=== PATIENT | female | born 1940 | race Caucasian/White ===

== ENCOUNTER → 2017-10-16 12:16 | Outpatient (CLI) | payer OTHER, SELFPAY ==
[2017-10-16 13:09] LABS: Alanine Aminotransferase 70 IU/L (9-52); Albumin 4.1 g/dL (3.5-5.0); Albumin Globulin Ratio 1.6 (1.0-2.8); Alkaline Phosphatase 111 U/L (38-126); Aspartate Aminotransferase 59 IU/L (14-36); BUN Creatinine Ratio 23.3 (6-22); Bilirubin Total 0.6 mg/dL (0.2-1.3); Blood Urea Nitrogen 21 mg/dL (7-17); Calcium 9.4 mg/dL (8.4-10.2); Carbon Dioxide 30 mmol/L (22-32); Chloride 103 mmol/L (98-107); Cholesterol 179 mg/dL (140-199); Estimated Glomerular Filt Rate > 60.0 mL/min (>60); Globulin 2.6 g/dL (1.7-4.1); Glucose 98 mg/dL (80-110); HDL Cholesterol 82 mg/dL (40-60); HEMOLYSIS < 15 (0-50); LDL Cholesterol Calculated 80 mg/dL (<100); Potassium 4.8 mmol/L (3.4-5.1); Sodium 142 mmol/L (137-145); Total Protein 6.7 g/dL (6.3-8.2); Triglycerides 87 mg/dL (35-150)
[2017-10-16 13:48] LABS: INR 2.9 (0.9-1.3)
== END ==
PROVIDERS: Family Provider Physician Assistant; PCP Physician Assistant; Visit Provider Physician Assistant
DX: I48.91 Unspecified atrial fibrillation (principal); I10 Essential (primary) hypertension; E78.5 Hyperlipidemia, unspecified
CPT/HCPCS: 36415; 80053; 80061; 85610

== ENCOUNTER → 2017-10-31 10:56 | Outpatient (CLI) | payer OTHER, SELFPAY ==
[2017-10-31 12:34] LABS: Alanine Aminotransferase 56 IU/L (9-52); Albumin 4.1 g/dL (3.5-5.0); Albumin Globulin Ratio 1.3 (1.0-2.8); Alkaline Phosphatase 88 U/L (38-126); Aspartate Aminotransferase 56 IU/L (14-36); Bilirubin Total 0.6 mg/dL (0.2-1.3); Blood Urea Nitrogen 24 mg/dL (7-17); Calcium 9.5 mg/dL (8.4-10.2); Carbon Dioxide 28 mmol/L (22-32); Chloride 101 mmol/L (98-107); Estimated Glomerular Filt Rate 53.9 mL/min (>60); Globulin 3.1 g/dL (1.7-4.1); Glucose 91 mg/dL (80-110); HEMOLYSIS 15 (0-50); Potassium 4.3 mmol/L (3.4-5.1); Sodium 141 mmol/L (137-145); Total Protein 7.2 g/dL (6.3-8.2)
== END ==
PROVIDERS: Family Provider Physician Assistant; PCP Physician Assistant; Visit Provider Physician Assistant
DX: I10 Essential (primary) hypertension (principal)
CPT/HCPCS: 36415; 80053

== ENCOUNTER → 2017-11-12 10:25 | Outpatient (CLI) | payer OTHER, SELFPAY ==
[2017-11-12 11:12] LABS: INR 3.7 (0.9-1.3); Prothrombin Time 39.7 SECONDS (10.1-12.7)
== END ==
PROVIDERS: PCP Physician Assistant; Visit Provider Physician Assistant
DX: I48.91 Unspecified atrial fibrillation (principal)
CPT/HCPCS: 36415; 85610

== ENCOUNTER → 2017-11-22 12:14 | Outpatient (CLI) | payer OTHER, SELFPAY ==
[2017-11-22 14:07] LABS: Prothrombin Time 65.9 SECONDS (10.1-12.7)
[2017-11-22 14:10] LABS: INR 6.2 (0.9-1.3)
== END ==
PROVIDERS: Family Provider Physician Assistant; PCP Physician Assistant; Visit Provider Physician Assistant
DX: I48.91 Unspecified atrial fibrillation (principal)
CPT/HCPCS: 85610

== ENCOUNTER → 2017-12-10 15:10 | Outpatient (CLI) | payer OTHER, SELFPAY ==
[2017-12-10 16:31] LABS: INR 3.8 (0.9-1.3); Prothrombin Time 42.4 SECONDS (10.1-12.7)
== END ==
PROVIDERS: Family Provider Physician Assistant; PCP Physician Assistant; Visit Provider Physician Assistant
DX: I48.91 Unspecified atrial fibrillation (principal)
CPT/HCPCS: 36415; 85610

== ENCOUNTER → 2018-01-03 11:11 | Outpatient (CLI) | payer OTHER, SELFPAY ==
[2018-01-03 11:41] LABS: INR 3.6 (0.9-1.3); Prothrombin Time 40.1 SECONDS (10.1-12.7)
== END ==
PROVIDERS: Family Provider Physician Assistant; PCP Physician Assistant; Visit Provider Physician Assistant
DX: I48.91 Unspecified atrial fibrillation (principal)
CPT/HCPCS: 36415; 85610

== ENCOUNTER → 2018-01-14 10:08 | Outpatient (CLI) | payer OTHER, SELFPAY ==
[2018-01-14 10:50] LABS: INR 3.2 (0.9-1.3); Prothrombin Time 35.8 SECONDS (10.1-12.7)
== END ==
PROVIDERS: Family Provider Physician Assistant; PCP Physician Assistant; Visit Provider Physician Assistant
DX: I48.91 Unspecified atrial fibrillation (principal)
CPT/HCPCS: 36415; 85610

== ENCOUNTER → 2018-05-03 08:40 | Outpatient (CLI) | payer OTHER, SELFPAY ==
[2018-05-03 10:10] LABS: INR 1.8 (0.9-1.3); Prothrombin Time 21.1 SECONDS (10.1-12.7)
== END ==
PROVIDERS: PCP Physician Assistant; Visit Provider Physician Assistant
DX: I48.91 Unspecified atrial fibrillation (principal)
CPT/HCPCS: 36415; 85610

== ENCOUNTER → 2018-07-10 08:28 | Outpatient (CLI) | payer OTHER, SELFPAY ==
[2018-07-10 09:39] LABS: INR 2.8 (0.9-1.3); Prothrombin Time 33.7 SECONDS (10.1-12.7)
[2018-07-10 10:01] LABS: Creatinine Urine Random 99.5 mg/dL
[2018-07-10 10:03] LABS: Alanine Aminotransferase 32 IU/L (9-52); Albumin 4.3 g/dL (3.5-5.0); Albumin Globulin Ratio 1.5 (1.0-2.8); Alkaline Phosphatase 85 U/L (38-126); Aspartate Aminotransferase 34 IU/L (14-36); Bilirubin Total 0.5 mg/dL (0.2-1.3); Blood Urea Nitrogen 27 mg/dL (7-17); Calcium 9.8 mg/dL (8.4-10.2); Carbon Dioxide 29 mmol/L (22-32); Chloride 102 mmol/L (98-107); Cholesterol 189 mg/dL (140-199); Estimated Glomerular Filt Rate 53.9 mL/min (>60); Globulin 2.8 g/dL (1.7-4.1); Glucose 91 mg/dL (80-110); HDL Cholesterol 78 mg/dL (40-60); HEMOLYSIS < 15 (0-50); LDL Cholesterol Calculated 91 mg/dL (<100); Potassium 4.9 mmol/L (3.4-5.1); Sodium 139 mmol/L (137-145); Total Protein 7.1 g/dL (6.3-8.2); Triglycerides 99 mg/dL (35-150)
[2018-07-10 10:08] LABS: Microalbumin Urine Random < 0.6 mg/dL (0-1.6)
== END ==
PROVIDERS: PCP Physician Assistant; Visit Provider Physician Assistant
DX: E78.5 Hyperlipidemia, unspecified (principal); I10 Essential (primary) hypertension; M81.0 Age-related osteoporosis without current pathological fracture; Z51.81 Encounter for therapeutic drug level monitoring; I48.91 Unspecified atrial fibrillation
CPT/HCPCS: 36415; 80053; 80061; 82043; 82570; 85610

== ENCOUNTER → 2018-08-19 09:48 | Outpatient (CLI) | payer OTHER, SELFPAY ==
[2018-08-19 11:00] LABS: Prothrombin Time 56.6 SECONDS (10.1-12.7)
[2018-08-19 11:12] LABS: INR 4.7 (0.9-1.3)
== END ==
PROVIDERS: PCP Physician Assistant; Visit Provider Physician Assistant
DX: I48.91 Unspecified atrial fibrillation (principal)
CPT/HCPCS: 36415; 85610

== ENCOUNTER → 2018-08-26 10:43 | Outpatient (CLI) | payer OTHER, SELFPAY ==
[2018-08-26 11:58] LABS: INR 1.9 (0.9-1.3); Prothrombin Time 22.4 SECONDS (10.1-12.7)
== END ==
PROVIDERS: PCP Physician Assistant; Visit Provider Physician Assistant
DX: I48.91 Unspecified atrial fibrillation (principal)
CPT/HCPCS: 36415; 85610

== ENCOUNTER → 2018-09-13 12:57 | Outpatient (CLI) | payer OTHER, SELFPAY ==
[2018-09-13 13:18] LABS: INR 3.5 (0.9-1.3); Prothrombin Time 41.3 SECONDS (10.1-12.7)
== END ==
PROVIDERS: PCP Physician Assistant; Visit Provider Physician Assistant
DX: I48.91 Unspecified atrial fibrillation (principal)
CPT/HCPCS: 36415; 85610

== ENCOUNTER → 2018-10-02 09:24 | Outpatient (CLI) | payer OTHER, SELFPAY ==
--- NOTE | 2018-10-02 | DI.MG.S_ITS ---
BILATERAL DIGITAL SCREENING MAMMOGRAM 3D/2D WITH CAD: 10/02/2018 CLINICAL: Routine screening. Comparison is made to exams dated: 09/26/2017 mammogram, 09/13/2016 mammogram, and 09/13/2015 mammogram - [facility]. The tissue of both breasts is extremely dense, which lowers the sensitivity of mammography. Current study was also evaluated with a Computer Aided Detection (CAD) system. There are benign calcifications in the left breast. There also are benign biopsy clips in the left breast. No significant masses, calcifications, or other findings are seen in either breast. There has been no significant interval change. IMPRESSION: There is no mammographic evidence of malignancy. A 1 year screening mammogram is recommended. This exam was interpreted at Station ID: [id number]. NOTE: For mammograms, a report in lay terms will be sent to the patient. Approximately 15% of breast malignancies will not be visualized mammographically. In the management of a palpable breast mass, a negative mammogram must not discourage biopsy of a clinically suspicious lesion. Electronically Signed By: Becca hull/apple:10/02/2018 11:19:21 letter sent: Normal Exam ACR BI-RADS Category 2: Benign Finding(s) 3342F
== END ==
PROVIDERS: PCP Physician Assistant; Visit Provider Physician Assistant
DX: Z12.31 Encounter for screening mammogram for malignant neoplasm of breast (principal)
CPT/HCPCS: 77063; 77067

== ENCOUNTER → 2018-10-04 12:20 | Outpatient (CLI) | payer OTHER, SELFPAY ==
[2018-10-04 14:04] LABS: INR 2.8 (0.9-1.3)
== END ==
PROVIDERS: PCP Physician Assistant; Visit Provider Physician Assistant
DX: I48.91 Unspecified atrial fibrillation (principal)
CPT/HCPCS: 36415; 85610

== ENCOUNTER → 2018-11-28 11:38 | Outpatient (CLI) | payer OTHER, SELFPAY ==
[2018-11-28 13:24] LABS: INR 2.3 (0.9-1.3); Prothrombin Time 26.8 SECONDS (10.1-12.7)
== END ==
PROVIDERS: PCP Physician Assistant; Visit Provider Physician Assistant
DX: I48.91 Unspecified atrial fibrillation (principal)
CPT/HCPCS: 36415; 85610

== ENCOUNTER → 2019-01-07 11:00 | Outpatient (CLI) | payer OTHER, SELFPAY ==
[2019-01-07 11:54] LABS: INR 2.3 (0.9-1.3)
== END ==
PROVIDERS: PCP Physician Assistant; Visit Provider Physician Assistant
DX: I48.91 Unspecified atrial fibrillation (principal)
CPT/HCPCS: 36415; 85610

== ENCOUNTER → 2019-02-27 10:48 | Outpatient (CLI) | payer OTHER, SELFPAY ==
[2019-02-27 11:27] LABS: INR 2.4 (0.9-1.3); Prothrombin Time 28.8 SECONDS (10.1-12.7)
== END ==
PROVIDERS: PCP Physician Assistant; Visit Provider Physician Assistant
DX: I48.91 Unspecified atrial fibrillation (principal)
CPT/HCPCS: 36415; 85610

== ENCOUNTER → 2019-04-24 09:35 | Outpatient (CLI) | payer OTHER, SELFPAY ==
[2019-04-24 10:42] LABS: INR 1.3 (0.9-1.3)
[2019-04-24 11:02] LABS: Creatinine Urine Random 120.3 mg/dL
[2019-04-24 11:05] LABS: Alanine Aminotransferase 30 IU/L (<35); Albumin 4.2 g/dL (3.5-5.0); Albumin Globulin Ratio 1.8 (1.0-2.8); Alkaline Phosphatase 99 U/L (38-126); Aspartate Aminotransferase 41 IU/L (14-36); BUN Creatinine Ratio 21.7 (6-22); Bilirubin Total 0.7 mg/dL (0.2-1.3); Blood Urea Nitrogen 26 mg/dL (7-17); Calcium 9.8 mg/dL (8.4-10.2); Carbon Dioxide 29 mmol/L (22-32); Chloride 101 mmol/L (98-107); Cholesterol 191 mg/dL (140-199); Estimated Glomerular Filt Rate 43.6 mL/min (>60); Globulin 2.4 g/dL (1.7-4.1); Glucose 83 mg/dL (80-110); HDL Cholesterol 65 mg/dL (40-60); HEMOLYSIS < 15 (0-50); LDL Cholesterol Calculated 104 mg/dL (<100); Potassium 4.2 mmol/L (3.4-5.1); Sodium 140 mmol/L (137-145); Total Protein 6.6 g/dL (6.3-8.2); Triglycerides 110 mg/dL (35-150)
[2019-04-24 11:08] LABS: Microalbumi Creatinin Ratio Ur 4.9 ug/mg CR (<30); Microalbumin Urine Random < 0.6 mg/dL (0-1.6)
[2019-04-24 11:16] LABS: Vitamin D 25 Hydroxy (D3) 18.9 ng/mL (30.0-100.0)
== END ==
PROVIDERS: PCP Physician Assistant; Visit Provider Physician Assistant
DX: I48.91 Unspecified atrial fibrillation (principal); E78.5 Hyperlipidemia, unspecified; I10 Essential (primary) hypertension; M81.0 Age-related osteoporosis without current pathological fracture
CPT/HCPCS: 36415; 80053; 80061; 82043; 82306; 82570; 85610

== ENCOUNTER → 2019-05-08 11:36 | Outpatient (CLI) | payer OTHER, SELFPAY ==
[2019-05-08 12:34] LABS: INR 1.7 (0.9-1.3)
== END ==
PROVIDERS: PCP Physician Assistant; Visit Provider Physician Assistant
DX: I48.91 Unspecified atrial fibrillation (principal); Z51.81 Encounter for therapeutic drug level monitoring
CPT/HCPCS: 36415; 85610

== ENCOUNTER → 2019-06-11 12:50 | Outpatient (CLI) | payer OTHER, SELFPAY ==
[2019-06-11 13:58] LABS: INR 3.4 (0.9-1.3); Prothrombin Time 40.6 SECONDS (10.1-12.7)
[2019-06-11 14:07] LABS: Blood Urea Nitrogen 18 mg/dL (7-17); Calcium 9.6 mg/dL (8.4-10.2); Carbon Dioxide 27 mmol/L (22-32); Chloride 101 mmol/L (98-107); Estimated Glomerular Filt Rate 53.8 mL/min (>60); Glucose 83 mg/dL (80-110); HEMOLYSIS < 15 (0-50); Sodium 137 mmol/L (137-145)
== END ==
PROVIDERS: PCP Physician Assistant; Visit Provider Physician Assistant
DX: I10 Essential (primary) hypertension (principal); N28.9 Disorder of kidney and ureter, unspecified; I48.91 Unspecified atrial fibrillation; Z79.01 Long term (current) use of anticoagulants
CPT/HCPCS: 36415; 80048; 85610

== ENCOUNTER → 2019-07-11 12:53 | Outpatient (CLI) | payer OTHER, SELFPAY ==
--- NOTE | 2019-07-11 13:06 | DIET.PN ---
Dietary Progress Note Assessment: 78y F following keto diet interested with help losing weight while protecting her kidneys and without raising her cholesterol. HT: 5'4 WT: 190.5# Wt Goal: 180# BMI: 33.7 Usual Day: wakes 8am breakfast 10am: 1 c coffee, muffin:hamburger, scrambled egg, sometimes condon (130kcal) or low calorie sausage, water house chores, read, watch tv 2pm lunch: egg muffin, 1/2 avocado, low-bradley sausage starts fixing dinner 4pm, 5pm cocktail: usually just one, hard alcohol 3oz c water or diet pepsi 6pm: pork tenderloin, sauteed mushrooms, spinach salad 3d/w has second cocktail evening snack: cheese, mushroom, egg muffin reads in bed 10-12, then falls asleep. no intentional physical activity, has back pain Out to dinner: shrimp scampi c/o pasta, burger c/o bun, fish taco c/o tortilla Labs: eGFR 53 L, TC 205 H Nutrition Diagnosis: overweight r/t undesirable food choices aeb pt follows fad diets, has history of yoyo dieting. Interventions: 1. Discussed ketogenic diet, pros and cons, consequences of going on and off keto, effects on kidneys. 2. Discussed role of regular physical activity on weight loss and maintenance. 3. Discussed evening snacking, role of front loading diet earlier in the day. Goals: 1. Jil will do a 10 minute lap with cart at [employer] and [employer] before shopping to increase step count. 2. Jil will get up and move after every show in the evening ensuring you hit at least 1k steps per day increasing to 2k whenever possible. 3. Stop eating at 8pm and wait to eat until 9-10am. 4. After dinner snacks stick to berries, popcorn or an branch bar. 5. Increase breakfast and and lunch volume with low calorie, and low carb vegetables. Monitoring/Evaluations: f/u in 2w
== END ==
PROVIDERS: PCP Nurse Practitioner Family; Referring Provider Physician Assistant; Visit Provider Physician Assistant
DX: E66.9 Obesity, unspecified (principal); Z68.33 Body mass index [BMI] 33.0-33.9, adult
CPT/HCPCS: 97802

== ENCOUNTER → 2019-07-11 12:57 | Outpatient (CLI) | payer OTHER, SELFPAY ==
[2019-07-11 15:09] LABS: INR 2.7 (0.9-1.3); Prothrombin Time 30.6 SECONDS (10.1-12.7)
== END ==
PROVIDERS: PCP Nurse Practitioner Family; Referring Provider Physician Assistant; Visit Provider Physician Assistant
DX: I48.91 Unspecified atrial fibrillation (principal); Z79.01 Long term (current) use of anticoagulants
CPT/HCPCS: 36415; 85610

== ENCOUNTER → 2019-07-25 13:58 | Outpatient (CLI) | payer OTHER, SELFPAY ==
--- NOTE | 2019-07-25 14:06 | DIET.PN ---
Dietary Progress Note Assessment: 78y F with hyperlipidemia and obesity attending 2w f/u to problem solve barriers and assess goals. Ht: 64 WT: 189.5 (down 1# in 3w) Wt Goal: 180# BMI: 32.4 Pt experiencing some constipation and her zuleima is reporting average fiber intake of 11g/d which is about 50% of her needs. Because of her HLD, we are adding 2T karly seeds to her daily routine keeping her keto ratios while supplying a heart healthy fat and soluble fiber to support HLD and healthy bowel movements. Pt has cleaned up her breakfast from sausage to making eggs, mushroom, spinach c /8 c cheese and some olive oil on top fritatta. Pt has started walking more aisles in the grocery store and takes short walks more frequently than she had been. She is worried about her knees so options include purchasing treking poles, or going less distance at once but more frequently. Pt had a setback Sunday and ate three pieces of apple pie. She is not usually a sweets eater, but bought the pie for her . Pt has moderate success (2-3d/w) with fasting from 8pm to 9am, will work harder on making this more frequent (goal 5-7d/w). Nutrition Diagnosis:Nutrition Diagnosis: Ongoing: overweight r/t undesirable food choices aeb pt follows fad diets, has history of yoyo dieting. Interventions: 1. Add 2T karly seeds per day to support fiber needs. 2. Continue adding physical activity, trying to get minimum of 2k steps per day. 3. Continue intermittent fasting 13h/d overnight. Monitoring/Evaluations: pt will continue to see RD [id number] as insurance allows.
== END ==
PROVIDERS: PCP Nurse Practitioner Family; Referring Provider Nurse Practitioner Family; Visit Provider Nurse Practitioner Family
DX: E78.5 Hyperlipidemia, unspecified (principal); E66.9 Obesity, unspecified; Z68.32 Body mass index [BMI] 32.0-32.9, adult; Z71.3 Dietary counseling and surveillance
CPT/HCPCS: 97802

== ENCOUNTER 2019-09-13 07:57 | Emergency (ER) | payer OTHER, SELFPAY ==
[2019-09-13 08:09] VITALS: BP 200/97; PULSE 72; RESP 16; TEMP 36.4; O2SAT 96
--- NOTE | 2019-09-13 08:14 | DI.RAD.S_ITS ---
PROCEDURE: XR FOOT LT MIN 3V INDICATIONS: mildly tender ecchymotic left foot TECHNIQUE: 3 views of the foot were acquired. COMPARISON: None. FINDINGS: Bones: No fractures or dislocations. No suspicious bony lesions. Incidental note is made of a bipartite medial sesamoid bone. Age-appropriate bony degenerative changes are seen. A plantar calcaneal spur is seen. Soft tissues: No tibiotalar joint effusion. Achilles tendon appears normal. IMPRESSION: Age-appropriate degenerative changes are seen, without acute bony abnormality seen by plain film. If there is point tenderness (or other clinical suspicion for a fracture not seen on these images) then a dedicated CT could be considered for further evaluation, as clinically appropriate. Dictated by: Jose Lea M.D. on 09/13/2019 at 8:03 Approved by: Jose Lea M.D. on 09/13/2019 at 8:04
--- NOTE | 2019-09-13 08:17 | ED_ITS ---
HPI - Extremity Injury (Lower) General Chief Complaint: Extremity Injury, Lower Stated Complaint: left ankle/lower mortensen black/blue x5 days Time Seen by Provider: 09/13/19 08:07 History of Present Illness HPI Narrative: CC: Ecchymotic dorsal left foot on Coumadin HPI: The patient is a 78-year-old female who has a history of paroxysmal atrial fibrillation for which she is on Coumadin. On Sunday of this past week 4 days ago the patient developed arm ecchymosis over the dorsal left foot primarily over the proximal toes 2,3 and 4. She denies any knowledge or source of injury. She does not remember twisting or injuring her foot in any reason. Last night the patient developed a small area of ecchymosis over the distal right left leg at which time she came into the emergency department this morning to be further evaluated. She called her primary care physician is stated that she probably just tore and twisted and injured a small blood vessel causing the bruising. She denies any diabetes mellitus heart attack congestive heart failure. She does not smoke but she does have 1-2 martinis at Happy hour period she denies any fever chills or sweats as well as any nasal congestion stuffiness drainage cough shortness of breath chest pain palpitations dizziness or lightheadedness. She has not had any other rash abdominal pain nausea vomiting diarrhea or any Related Data Previous Rx's Medication Instructions Recorded flecainide 150 mg tablet 150 mg PO BID #20 tab 09/20/17 atenolol 25 mg tablet 25 mg PO BID #180 tab 04/07/19 atorvastatin 20 mg tablet 20 mg PO HS #90 tab 04/09/19 warfarin 3 mg tablet 3 mg PO 4XW #90 tab 04/29/19 warfarin 5 mg tablet 5 mg PO DAILY #90 tab 08/15/19 Allergies Allergy/AdvReac Type Severity Reaction Status Date / Time No Known Drug Allergies Allergy Verified 09/13/19 08:23 Review of Systems Review of Systems Narrative: Review of systems were all negative except for those mentioned in the history of present illness. Patient History Medical History Atrial fibrillation (Chronic 01/22/14) Essential hypertension (Chronic) GERD (gastroesophageal reflux disease) (Chronic Unknown) Hyperlipidemia (Chronic) Osteopenia after menopause (Chronic) Sciatica (Chronic Unknown) Squamous cell carcinoma (Resolved ~04/2017) Surgical History History of total right hip arthroplasty (Resolved 02/2009) Hx of breast biopsy (Resolved 08/2014) Family History Father No problems noted. Mother No problems noted. Social History Smoking Status: Former smoker (Quit in 1990) Tobacco: How many years used: 25 second hand exposure: No alcohol intake: current (wine once a day.) substance use type: does not use Smoking Status: Former smoker (Quit in 1990) Exam Narrative Exam Narrative: PHYSICAL EXAM: CONSTITUTIONAL: Awake, Alert, Oriented, Coherent, Cooperative in NAD. Does not appear toxic or ill. HEAD: AT/NC EENT: PERRL, FROM of eyes, no discharge, . NOSE:No epistaxis or nasal drainage MOUTH:Oral mucosa is moist and pink, posterior pharynx is without erythema or exudate. NECK: Supple, no obvious JVD, Trachea is midline without stridor,. SPINE: Palpationof the cervical, Thoracic, Lumbar or Sacral spine reveals no gross deformity or tenderness. No CVA tenderness. THORAX: No deformity, retractions, chest wall tenderness. LUNGS: Clear, symmetrical breath sounds without respiratory distress. HEART: Normal heart tones, regular rhythm and rate without murmur. She states that she is primarily regular since she has been on flecainide. ABDOMEN: Soft, non-tender, normal bowel sounds without guarding, rebound, rigidity or palpable mass. LYMPHATIC: no palpable spleen. EXTREMITIES: No edema, deformity, tenderness or cyanosis of either leg. The patient has increased ecchymosis over the dorsal metatarsal joints of the 2nd and 3rd toe with diffuse ecchymosis over the dorsum of her foot spreading l aterally almost to her heel. There is no bony deformity or tenderness to palpation. There is no swelling of her ankles arm or tenderness over the talofibular ligaments heart talar tibial ligament. The patient has a small area of ecchymosis over her lateral left distal leg but there is no calf tenderness no extensive ecchymosis or signs of a hematoma at this time. SKIN: No rash, bruising, petechiae or purpura. NEURO: Awake, alert, oriented, conversive, cranial nerves II-XII are symmetrical , moves all 4 extremities and is ambulatory. Initial Vital Signs Initial Vital Signs: Vital Signs Temperature 97.6 F 09/13/19 08:09 Pulse Rate 72 09/13/19 08:09 Respiratory Rate 16 09/13/19 08:09 Blood Pressure 200/97 H 09/13/19 08:09 Pulse Oximetry 96 09/13/19 08:09 Course Course Course Narrative: 899: Review of the patient's x-rays myself reveal no fractures of the phalanges of her left foot or of the metatarsal bones. And a lateral view there appears to be a sesamoid bone over the plantar surface of the 1st metatarsal of the great toe which appears to be questionably fractured. However re-examination of the patient's foot reveals that there is no plantar ecchymosis nor tenderness to palpation over the plantar surface of the metatarsophalangeal joints of the great toe and the rest of the toes. I believe the patient's injury to her foot is a twisting motion and that the ecchymosis is concentrating around her toes because the dependent position of her feet when sitting and standing. 0911: INR remains pending. Orders Ordered: ED Orders 09/13/19 08:14 XR foot LT min 3V Stat 09/13/19 08:51 Complete Blood Count AUTO DIFF Stat Partial Thromboplastin Time Stat Prothrombin Time INR Stat Vital Signs Vital signs: Vital Signs - 8 hr 09/13/19 08:09 09/13/19 09:27 Temperature 97.6 F Pulse Rate 72 60 Respiratory Rate 16 18 Blood Pressure 200/97 H Blood Pressure [Left Arm] 172/80 H Pulse Oximetry 96 99 MDM - Extremity Injury (Lower) Medical Records Attestation: I reviewed the patient's medical records. Lab Data Attestation: I reviewed the patient's lab results. Result diagrams: 09/13/19 08:51 Labs: Lab Results 09/13/19 09/13/19 Range/Units 08:51 08:51 WBC 4.0 L (4.5-11.0) X10^3/uL RBC 4.42 (4.0-5.2) X10^6/uL Hgb 14.3 (12.0-16.0) g/dL Hct 41.7 (36-46) % MCV 94.3 (80-100) fL MCH 32.3 (26-34) PG MCHC 34.2 (30-36) % RDW 15.2 H (11.6-14.8) % Plt Count 187 (150-400) X10^3/uL Neut % (Auto) 51.7 (50-75) % Lymph % (Auto) 31.3 (25-40) % [place] % (Auto) 13.4 (3-14) % Eos % (Auto) 2.9 (2-4) % Baso % (Auto) 0.7 (0-2) % Neut # (Auto) 2000 (8625-5005) /uL Lymph # (Auto) 1200 (9622-5839) /uL [place] # (Auto) 500 (0-900) /uL Eos # (Auto) 100 (0-450) /uL Baso # (Auto) 0 (0-100) /uL PT 41.8 H (10.1-12.7) SECONDS INR 3.7 H (0.9-1.3) APTT 47 H (26.4-36.2) SECONDS MDM Narrative Medical decision making narrative: The patient's INR ranges from 1.3 to 3.4. Today her INR is 41.8 seconds and her INR is 3.7. Her INR is not extremely high but mildly high at elevated. She will be advised to hold her next dose of Coumadin and then resume her Coumadin and follow-up with her primary care physician. She can apply ice to the areas of ecchymosis to help reduce the swelling and potential bleeding. She was advised that if she develops a headache, falls and strikes her head for develops any gross bleeding anywhere else such as hemoptysis, hematemesis hematochezia or hematuria she should return to the emergency department to be re-evaluated. Discharge Plan Departure Clinical Impression: Ecchymosis Injury of foot, left Qualifiers: Encounter type: initial encounter Qualified Code(s): S99.922A - Unspecified injury of left foot, initial encounter Prescriptions: No Action flecainide 150 mg tablet 150 mg PO BID Qty: 20 RF: 1 atenolol 25 mg tablet 25 mg PO BID Qty: 180 RF: 3 atorvastatin [Lipitor] 20 mg tablet 20 mg PO HS Qty: 90 RF: 3 warfarin 5 mg tablet 5 mg PO DAILY Qty: 90 RF: 2 warfarin 3 mg tablet 3 mg PO 4XW Qty: 90 RF: 1 Referrals: Tone Ponce ARNP [Primary Care Provider] -
--- NOTE | 2019-09-13 08:28 | PC.NURSE ---
no injury, bruising to top of left foot.
[2019-09-13 08:58] LABS: Add Manual Diff / Slide Review NO; Basophils Absolute Auto 0 /uL (0-100); Basophils Percent Auto 0.7 % (0-2); Eosinophils Absolute Auto 100 /uL (0-450); Eosinophils Percent Auto 2.9 % (2-4); Hematocrit 41.7 % (36-46); Hemoglobin 14.3 g/dL (12.0-16.0); Lymphocytes Absolute Auto 1200 /uL (1100-4500); Lymphocytes Percent Auto 31.3 % (25-40); Mean Corpuscular HGB Conc 34.2 % (30-36); Mean Corpuscular Hemoglobin 32.3 PG (26-34); Mean Corpuscular Volume 94.3 fL (80-100); Monocytes Absolute Auto 500 /uL (0-900); Monocytes Percent Auto 13.4 % (3-14); Neutrophils Absolute Auto 2000 /uL (1500-7000); Neutrophils Percent Auto 51.7 % (50-75); Platelet Count 187 X10^3/uL (150-400); Red Blood Cell Count 4.42 X10^6/uL (4.0-5.2); Red Cell Distribution Width 15.2 % (11.6-14.8)
[2019-09-13 09:17] LABS: INR 3.7 (0.9-1.3); Prothrombin Time 41.8 SECONDS (10.1-12.7)
[2019-09-13 09:20] LABS: PTT Partial Thromboplastin Tim 47 SECONDS (26.4-36.2)
[2019-09-13 09:27] VITALS: BP 172/80; PULSE 60; RESP 18; O2SAT 99
== END 2019-09-13 09:49 | disposition home or self-care (01) ==
PROVIDERS: Emergency Provider Emergency Medicine; PCP Nurse Practitioner Family
DX: R58 Hemorrhage, not elsewhere classified (principal); S99.922A Unspecified injury of left foot, initial encounter; I48.91 Unspecified atrial fibrillation; Z79.01 Long term (current) use of anticoagulants
CPT/HCPCS: 36415; 73630; 85025; 85610; 85730; 99284

== ENCOUNTER → 2019-09-16 10:34 | Outpatient (CLI) | payer OTHER, SELFPAY ==
[2019-09-16 11:28] LABS: INR 2.6 (0.9-1.3); Prothrombin Time 30.1 SECONDS (10.1-12.7)
== END ==
PROVIDERS: PCP Nurse Practitioner Family; Referring Provider Nurse Practitioner Family; Visit Provider Nurse Practitioner Family
DX: I48.91 Unspecified atrial fibrillation (principal)
CPT/HCPCS: 36415; 85610

== ENCOUNTER → 2019-10-10 10:57 | Outpatient (CLI) | payer OTHER, SELFPAY ==
[2019-10-10 12:31] LABS: INR 3.9 (0.9-1.3); Prothrombin Time 44.6 SECONDS (10.1-12.7)
[2019-10-10 13:19] LABS: Alanine Aminotransferase 18 IU/L (<35); Albumin 4.4 g/dL (3.5-5.0); Albumin Globulin Ratio 1.6 (1.0-2.8); Alkaline Phosphatase 107 U/L (38-126); Aspartate Aminotransferase 33 IU/L (14-36); BUN Creatinine Ratio 30.5 (6-22); Bilirubin Total 0.6 mg/dL (0.2-1.3); Blood Urea Nitrogen 32 mg/dL (7-17); Calcium 9.9 mg/dL (8.4-10.2); Carbon Dioxide 26 mmol/L (22-32); Chloride 102 mmol/L (98-107); Estimated Glomerular Filt Rate 50.8 mL/min (>60); Globulin 2.8 g/dL (1.7-4.1); Glucose 97 mg/dL (80-110); HEMOLYSIS < 15 (0-50); Potassium 4.5 mmol/L (3.4-5.1); Sodium 138 mmol/L (137-145); Total Protein 7.2 g/dL (6.3-8.2)
== END ==
PROVIDERS: Internal Medicine Cardiovascular Disease; PCP Nurse Practitioner Family; Referring Provider Nurse Practitioner Family; Visit Provider Nurse Practitioner Pediatrics
DX: Z51.81 Encounter for therapeutic drug level monitoring (principal); Z79.899 Other long term (current) drug therapy; I48.91 Unspecified atrial fibrillation; Z79.01 Long term (current) use of anticoagulants
CPT/HCPCS: 36415; 80053; 85610

== ENCOUNTER → 2019-10-22 11:30 | Outpatient (CLI) | payer OTHER, SELFPAY ==
--- NOTE | 2019-10-22 11:32 | DIET.PN ---
Dietary Progress Note Assessment: 79y F f/u for obesity, HLD, and high INR seen regularly by RD, services interrupted by Covid. Pt has gained 10# since July r/t going off keto, drinking 2 martinis per day, and not regularly exercising. WT: 197.5# Labs: INR 3.9 H Interventions: 1. To support wt loss, Pt will restart keto diet using her phone zuleima per her preference. 2. To help regulate INR and support wt loss, pt will cut etoh intake to 1 equivalent per day. 3. To support healthy cholesterol levels and support wt loss pt will walk 3d/w. Monitoring/Evaluations: RD f/u in 2 week to assess interventions and problem solve barriers. Consider IF or 500kcal restriction 2d/w as additional tools for meeting goals.
== END ==
PROVIDERS: PCP Nurse Practitioner Family; Referring Provider Physician Assistant; Visit Provider Physician Assistant
DX: E78.5 Hyperlipidemia, unspecified (principal)

== ENCOUNTER 2019-11-05 10:52 | Emergency (ER) | payer OTHER, SELFPAY ==
[2019-11-05 11:21] VITALS: BP 222/100; PULSE 61; RESP 16; TEMP 36.9; O2SAT 97; BMI 32.8
--- NOTE | 2019-11-05 11:28 | DI.RAD.S_ITS ---
PROCEDURE: XR CHEST 1V INDICATIONS: hypertension. TECHNIQUE: One view of the chest was acquired. COMPARISON: None. FINDINGS: Surgical changes and devices: Left breast clip. Lungs and pleura: Lungs are clear. No pleural effusions or pneumothorax. Mediastinum: Mediastinal contours appear normal. Heart size is normal. Bones and chest wall: No suspicious bony lesions. Overlying soft tissues appear unremarkable. IMPRESSION: No acute cardiopulmonary abnormality. Dictated by: Flaco Chavez M.D. on 11/05/2019 at 12:13 Approved by: Flaco Chavez M.D. on 11/05/2019 at 12:13
--- NOTE | 2019-11-05 11:44 | PC.NURSE ---
PT sent from [facility] for high BP. Initial was 222/100. Asymptomatic. History of Afib. EKG done and now BP 174/74
[2019-11-05 11:45] VITALS: BP 174/74; PULSE 61; RESP 14; O2SAT 98
[2019-11-05 11:50] LABS: Add Manual Diff / Slide Review NO; Basophils Absolute Auto 0 /uL (0-100); Basophils Percent Auto 0.6 % (0-2); Eosinophils Absolute Auto 100 /uL (0-450); Eosinophils Percent Auto 1.4 % (2-4); Hematocrit 45.4 % (36-46); Hemoglobin 15.6 g/dL (12.0-16.0); Lymphocytes Absolute Auto 1500 /uL (1100-4500); Mean Corpuscular HGB Conc 34.2 % (30-36); Mean Corpuscular Hemoglobin 32.6 PG (26-34); Mean Corpuscular Volume 95.2 fL (80-100); Monocytes Absolute Auto 500 /uL (0-900); Monocytes Percent Auto 11.3 % (3-14); Neutrophils Absolute Auto 2300 /uL (1500-7000); Neutrophils Percent Auto 52.7 % (50-75); Platelet Count 192 X10^3/uL (150-400); Red Blood Cell Count 4.78 X10^6/uL (4.0-5.2); Red Cell Distribution Width 14.6 % (11.6-14.8); White Blood Cell Count 4.4 X10^3/uL (4.5-11.0)
--- NOTE | 2019-11-05 11:50 | ED_ITS ---
HPI - General Adult <NEVAEH Patel-BC - Last Filed: 11/05/19 14:32> General Chief complaint: Hypertension Stated complaint: high bp send from a Time Seen by Provider: 11/05/19 11:21 Source: patient Mode of arrival: Ambulatory Limitations: no limitations History of Present Illness HPI narrative: Patient is a 79-year-old femaleWith history of atrial fibrillation and hypertension who presents with a chief complaint of high blood pressure. She takes flecainide, atenolol, Coumadin hydrochlorothiazide at home she states she has been compliant with her medications. Today the patient went to her dentist, who found her to be hypertensive, they sent her to a to be evaluated, she was found to be hypertensive and sent her to the emergency department. The patient is without complaints. She denies any chest pain, shortness of breath, lightheadedness dizziness or headache. She states she had her INR checked today and was 1.9. Her goal is 2-3. Overall the patient states she feels well and normal, denies any complaints or pain. Her blood pressure was noted to be 220s over 100 at the outpatient clinic. Related Data Previous Rx's Medication Instructions Recorded flecainide 150 mg tablet 150 mg PO BID #20 tab 09/20/17 atenolol 25 mg tablet 25 mg PO BID #180 tab 04/07/19 atorvastatin 20 mg tablet 20 mg PO HS #90 tab 04/09/19 warfarin 3 mg tablet 3 mg PO 4XW #90 tab 04/29/19 warfarin 5 mg tablet 5 mg PO DAILY #90 tab 08/15/19 Allergies Allergy/AdvReac Type Severity Reaction Status Date / Time No Known Drug Allergies Allergy Verified 09/13/19 08:23 Review of Systems <NEVAEH Patel-BC - Last Filed: 11/05/19 14:32> Review of Systems Narrative: GENERAL: Denies chills, fatigue, malaise, fever, sweats. HEENT: Denies sinus pain, ear pain, sore throat, difficulty swallowing, dizziness. RESPIRATORY: Denies dyspnea, cough, wheezing, hemoptysis, sputum. CARDIOVASCULAR: Denies chest pain, palpitations, orthopnea, edema, GASTROINTESTINAL: Denies nausea, vomiting, abdominal pain, diarrhea, constipation, melena. : Denies dysuria, frequency, incontinence, hematuria, urinary retention. MUSCULOSKELETAL: denies weakness, joint pain, or bony pain SKIN: Denies rash, skin lesions, or other NEUROLOGIC: Denies weakness, headache, numbness, change in speech, confusion, seizures, incoordination. PSYCHIATRIC: No concerning psychosocial issues. 12 point review of systems is negative except for those stated above Patient History <EDVIN Patel - Last Filed: 11/05/19 14:32> Medical History Atrial fibrillation (Chronic 01/22/14) Essential hypertension (Chronic) GERD (gastroesophageal reflux disease) (Chronic Unknown) Hyperlipidemia (Chronic) Osteopenia after menopause (Chronic) Sciatica (Chronic Unknown) Squamous cell carcinoma (Resolved ~04/2017) Surgical History History of total right hip arthroplasty (Resolved 02/2009) Hx of breast biopsy (Resolved 08/2014) Family History Father No problems noted. Mother No problems noted. Social History Smoking Status: Former smoker Tobacco: How many years used: 25 second hand exposure: No alcohol intake: current (wine once a day.) substance use type: does not use Smoking Status: Former smoker alcohol intake frequency: 0-2 drinks per day Substance Use Type: does not use Exam <EDVIN Patel - Last Filed: 11/05/19 14:32> Narrative Exam Narrative: GENERAL: This is a well-nourished, well-developed patient, in no acute distress HEAD: Atraumatic. Normocephalic. No temporal or scalp tenderness. EYES: Pupils equal round and reactive. Extraocular motions intact. No scleral icterus. No injection or drainage. ENT: Nose without bleeding, purulent drainage or septal hematoma. Airway patent. NECK: Trachea midline. No JVD or lymphadenopathy. Supple, nontender, no meningeal signs. CARDIOVASCULAR: Regular rate and irregular rhythm RESPIRATORY: Clear to auscultation. Breath sounds equal bilaterally. No wheezes, rales, or rhonchi. No cough. No increased respiratory effort. No accessory muscle use. Speaking full sentences. GASTROINTESTINAL: Abdomen soft, non-tender, nondistended. No hepato-sple nomegaly, or palpable masses. No guarding. EXTREMITIES: No clubbing, cyanosis, or edema. No joint tenderness, effusion, or edema noted. BACK: Nontender without deformity or crepitance. No flank tenderness. NEURO: AOx3. SKIN: No rash or erythema on visible skin Initial Vital Signs Initial Vital Signs: Vital Signs Temperature 98.5 F 11/05/19 11:21 Pulse Rate 61 11/05/19 11:21 Respiratory Rate 16 11/05/19 11:21 Blood Pressure 222/100 H 11/05/19 11:21 Pulse Oximetry 97 11/05/19 11:21 <Maximilian Fulton DO - Last Filed: 11/05/19 14:33> Initial Vital Signs Initial Vital Signs: Vital Signs Temperature 98.5 F 11/05/19 11:21 Pulse Rate 61 11/05/19 11:21 Respiratory Rate 16 11/05/19 11:21 Blood Pressure 222/100 H 11/05/19 11:21 Pulse Oximetry 97 11/05/19 11:21 Scores <EDVIN Patel - Last Filed: 11/05/19 14:32> GCS [place] coma scale eye opening: Spontaneous Darlyn coma scale verbal response: Orientated Darlyn coma scale motor response: Obey commands Darlyn coma scale total score: 15 Course <EDVIN Patel - Last Filed: 11/05/19 14:32> Orders Ordered: ED Orders 11/05/19 11:28 XR chest 1V Stat EKG-12 Lead Stat 11/05/19 11:35 Complete Blood Count AUTO DIFF Stat 11/05/19 13:28 Comprehensive Metabolic Panel Stat Troponin I Stat Vital Signs Vital signs: Vital Signs - 8 hr 11/05/19 11:21 11/05/19 11:45 11/05/19 12:30 Temperature 98.5 F Pulse Rate 61 61 54 L Respiratory Rate 16 14 14 Blood Pressure 222/100 H Blood Pressure [Left Arm] 174/74 H 153/58 H Pulse Oximetry 97 98 96 11/05/19 13:00 11/05/19 14:19 11/05/19 14:24 Temperature Pulse Rate 55 L 49 L 49 L Respiratory Rate 18 24 24 Blood Pressure 177/76 H Blood Pressure [Left Arm] 156/66 H 177/76 H Pulse Oximetry 95 96 <Maximilian Fulton DO - Last Filed: 11/05/19 14:33> Orders Ordered: ED Orders 11/05/19 11:28 XR chest 1V Stat EKG-12 Lead Stat 11/05/19 11:35 Complete Blood Count AUTO DIFF Stat 11/05/19 13:28 Comprehensive Metabolic Panel Stat Troponin I Stat Vital Signs Vital signs: Vital Signs - 8 hr 11/05/19 11:21 11/05/19 11:45 11/05/19 12:30 Temperature 98.5 F Pulse Rate 61 61 54 L Respiratory Rate 16 14 14 Blood Pressure 222/100 H Blood Pressure [Left Arm] 174/74 H 153/58 H Pulse Oximetry 97 98 96 11/05/19 13:00 11/05/19 14:19 11/05/19 14:24 Temperature Pulse Rate 55 L 49 L 49 L Respiratory Rate 18 24 24 Blood Pressure 177/76 H Blood Pressure [Left Arm] 156/66 H 177/76 H Pulse Oximetry 95 96 Medical Decision Making <NEVAEH Patel-BC - Last Filed: 11/05/19 14:32> Lab Data Result diagrams: 11/05/19 11:35 11/05/19 13:28 Labs: Lab Results 11/05/19 11/05/19 Range/Units 11:35 13:28 WBC 4.4 L (4.5-11.0) X10^3/uL RBC 4.78 (4.0-5.2) X10^6/uL Hgb 15.6 (12.0-16.0) g/dL Hct 45.4 (36-46) % MCV 95.2 (80-100) fL MCH 32.6 (26-34) PG MCHC 34.2 (30-36) % RDW 14.6 (11.6-14.8) % Plt Count 192 (150-400) X10^3/uL Neut % (Auto) 52.7 (50-75) % Lymph % (Auto) 34.0 (25-40) % [place] % (Auto) 11.3 (3-14) % Eos % (Auto) 1.4 L (2-4) % Baso % (Auto) 0.6 (0-2) % Neut # (Auto) 2300 (6008-2081) /uL Lymph # (Auto) 1500 (8847-7942) /uL [place] # (Auto) 500 (0-900) /uL Eos # (Auto) 100 (0-450) /uL Baso # (Auto) 0 (0-100) /uL Sodium 137 (137-145) mmol/L Potassium 4.2 (3.4-5.1) mmol/L Chloride 102 (98-107) mmol/L Carbon Dioxide 28 (22-32) mmol/L BUN 23 H (7-17) mg/dL Creatinine 0.97 (0.52-1.04) mg/dL Estimated GFR 55.5 L (>60) mL/min BUN/Creatinine Ratio 23.7 H (6-22) Glucose 88 (80-110) mg/dL Calcium 10.0 (8.4-10.2) mg/dL Total Bilirubin 0.6 (0.2-1.3) mg/dL AST 40 H (14-36) IU/L ALT 23 (<35) IU/L Alkaline Phosphatase 91 (38-126) U/L Troponin I < 0.012 (0.01-0.034) ng/mL Total Protein 7.2 (6.3-8.2) g/dL Albumin 4.4 (3.5-5.0) g/dL Globulin 2.8 (1.7-4.1) g/dL Albumin/Globulin Ratio 1.6 (1.0-2.8) Urine Dip Bedside Urine Glucose Negative Bedside Urine Bilirubin - Negative Bedside Urine Ketone - Negative Urine Specific [place] 1.010 Bedside Urine Occult Blood - Negative Bedside Urine pH 6.0 Bedside Urine Protein - Negative Bedside Urine Urobilinogen - Negative Bedside Urine Nitrite - Negative Bedside Urine Leukocytes - Negative Esterase Point of care testing: Urine Dip Bedside Urine Glucose Negative Bedside Urine Bilirubin - Negative Bedside Urine Ketone - Negative Urine Specific [place] 1.010 Bedside Urine Occult Blood - Negative Bedside Urine pH 6.0 Bedside Urine Protein - Negative Bedside Urine Urobilinogen - Negative Bedside Urine Nitrite - Negative Bedside Urine Leukocytes - Negative Esterase Imaging Data Chest x-ray: Radiologist's Impression: [address] [place] [id number] XRay Report Signed Patient: Jennie Reyes LMR#: [id number] : 1941Acct:[id number] Age/Sex: 79 / FDate of Service: 11/05/19 Loc: ED Accession Number: [id number] Procedure: XR chest 1V Ordering Provider: Maria C Dinero PROCEDURE: XR CHEST 1V INDICATIONS: hypertension. TECHNIQUE: One view of the chest was acquired. COMPARISON: None. FINDINGS: Surgical changes and devices: Left breast clip. Lungs and pleura: Lungs are clear. No pleural effusions or pneumothorax. Mediastinum: Mediastinal contours appear normal. Heart size is normal. Bones and chest wall: No suspicious bony lesions. Overlying soft tissues appear unremarkable. IMPRESSION: No acute cardiopulmonary abnormality. Dictated by: Flaco Chavez M.D. on 11/05/2019 at 12:13 Approved by: Flaco Chavez M.D. on 11/05/2019 at 12:13 ECG Data Interpretation: Atrial fibrillation. Ventricular rate 61. QRS 114 no ectopy noted. viewed by Dr Fulton MDM Narrative Medical decision making narrative: The patient is a 79-year-old female with history of hypertension who presents with a chief complaint of hypertension from her dentist office and [facility]. She stated her blood pressure was 220. Patient denies any chest pain shortness of breath, EKG and troponin are negative helping rule out any acute cardiac event. She is asymptomatic. She has no headache lightheadedness or dizziness. The patient has a current of 0.97, helping rule out a kidney injury. Her blood pressure normalized to 170 systolic in the emergency department, the patient remained asymptomatic. Thus we held off on any medication changes at this point time. Discussed at length follow up with primary care provider in the next few days as was coming back to the emergency department for any acute concerns. Patient has no questions or concerns upon discharge and states understanding return precautions as well as follow-up care. <Maximilian Fulton DO - Last Filed: 11/05/19 14:33> Lab Data Labs: Lab Results 11/05/19 11/05/19 Range/Units 11:35 13:28 WBC 4.4 L (4.5-11.0) X10^3/uL RBC 4.78 (4.0-5.2) X10^6/uL Hgb 15.6 (12.0-16.0) g/dL Hct 45.4 (36-46) % MCV 95.2 (80-100) fL MCH 32.6 (26-34) PG MCHC 34.2 (30-36) % RDW 14.6 (11.6-14.8) % Plt Count 192 (150-400) X10^3/uL Neut % (Auto) 52.7 (50-75) % Lymph % (Auto) 34.0 (25-40) % [place] % (Auto) 11.3 (3-14) % Eos % (Auto) 1.4 L (2-4) % Baso % (Auto) 0.6 (0-2) % Neut # (Auto) 2300 (0815-6057) /uL Lymph # (Auto) 1500 (7539-7488) /uL [place] # (Auto) 500 (0-900) /uL Eos # (Auto) 100 (0-450) /uL Baso # (Auto) 0 (0-100) /uL Sodium 137 (137-145) mmol/L Potassium 4.2 (3.4-5.1) mmol/L Chloride 102 (98-107) mmol/L Carbon Dioxide 28 (22-32) mmol/L BUN 23 H (7-17) mg/dL Creatinine 0.97 (0.52-1.04) mg/dL Estimated GFR 55.5 L (>60) mL/min BUN/Creatinine Ratio 23.7 H (6-22) Glucose 88 (80-110) mg/dL Calcium 10.0 (8.4-10.2) mg/dL Total Bilirubin 0.6 (0.2-1.3) mg/dL AST 40 H (14-36) IU/L ALT 23 (<35) IU/L Alkaline Phosphatase 91 (38-126) U/L Troponin I < 0.012 (0.01-0.034) ng/mL Total Protein 7.2 (6.3-8.2) g/dL Albumin 4.4 (3.5-5.0) g/dL Globulin 2.8 (1.7-4.1) g/dL Albumin/Globulin Ratio 1.6 (1.0-2.8) Urine Dip Bedside Urine Glucose Negative Bedside Urine Bilirubin - Negative Bedside Urine Ketone - Negative Urine Specific [place] 1.010 Bedside Urine Occult Blood - Negative Bedside Urine pH 6.0 Bedside Urine Protein - Negative Bedside Urine Urobilinogen - Negative Bedside Urine Nitrite - Negative Bedside Urine Leukocytes - Negative Esterase Point of care testing: Urine Dip Bedside Urine Glucose Negative Bedside Urine Bilirubin - Negative Bedside Urine Ketone - Negative Urine Specific [place] 1.010 Bedside Urine Occult Blood - Negative Bedside Urine pH 6.0 Bedside Urine Protein - Negative Bedside Urine Urobilinogen - Negative Bedside Urine Nitrite - Negative Bedside Urine Leukocytes - Negative Esterase Discharge Plan Departure Patient Disposition: Home Clinical Impression: Hypertension Qualifiers: Hypertension type: unspecified Qualified Code(s): I10 - Essential (primary) hypertension Discharge Date/Time: 11/05/19 14:26 Instructions: DI for High Blood Pressure Activity Restrictions/Additional Instructions: Thank you for trusting us with your care today. As discussed, your labs came back well and your blood pressure has normalized well. Please follow-up with primary care provider in the next few days Please come back to the emergency department for any acute concerns including chest pain, shortness of breath etcetera Prescriptions: No Action flecainide 150 mg tablet 150 mg PO BID Qty: 20 RF: 1 atenolol 25 mg tablet 25 mg PO BID Qty: 180 RF: 3 atorvastatin [Lipitor] 20 mg tablet 20 mg PO HS Qty: 90 RF: 3 warfarin 5 mg tablet 5 mg PO DAILY Qty: 90 RF: 2 warfarin 3 mg tablet 3 mg PO 4XW Qty: 90 RF: 1 Referrals: Tone Ponce ARNP [Primary Care Provider] - <Maximilian Fulton, - Last Filed: 11/05/19 14:33> Cosign ED Attending Cosreeceature Attestation: Dr Fulton Co-Sign Statement: I was available for consultation during this patient's emergency department visit. This chart is signed by myself for administrative purposes only. I did not have direct contact with this patient during this visit. They were seen independently by the APC.
[2019-11-05 12:30] VITALS: BP 153/58; PULSE 54; RESP 14; O2SAT 96
[2019-11-05 13:00] VITALS: BP 156/66; PULSE 55; RESP 18; O2SAT 95
--- NOTE | 2019-11-05 13:09 | PC.NURSE ---
Pt had appointment with in house branch associate teller, Carri. I called to see if she was able to see patient in the ER, per patient request. She was happy to come down to see her here.
[2019-11-05 13:42] LABS: Alanine Aminotransferase 23 IU/L (<35); Albumin 4.4 g/dL (3.5-5.0); Albumin Globulin Ratio 1.6 (1.0-2.8); Alkaline Phosphatase 91 U/L (38-126); Aspartate Aminotransferase 40 IU/L (14-36); BUN Creatinine Ratio 23.7 (6-22); Bilirubin Total 0.6 mg/dL (0.2-1.3); Blood Urea Nitrogen 23 mg/dL (7-17); Carbon Dioxide 28 mmol/L (22-32); Chloride 102 mmol/L (98-107); Estimated Glomerular Filt Rate 55.5 mL/min (>60); Globulin 2.8 g/dL (1.7-4.1); Glucose 88 mg/dL (80-110); HEMOLYSIS < 15 (0-50); Potassium 4.2 mmol/L (3.4-5.1); Sodium 137 mmol/L (137-145); Total Protein 7.2 g/dL (6.3-8.2)
[2019-11-05 13:53] LABS: Troponin I < 0.012 ng/mL (0.01-0.034)
[2019-11-05 14:19] VITALS: BP 177/76; PULSE 49; RESP 24
[2019-11-05 14:24] VITALS: BP 177/76; PULSE 49; RESP 24; O2SAT 96
== END 2019-11-05 14:26 | disposition home or self-care (01) ==
PROVIDERS: Emergency Provider Nurse Practitioner Family; PCP Nurse Practitioner Family
DX: I10 Essential (primary) hypertension (principal)
CPT/HCPCS: 36415; 71045; 80053; 81003; 84484; 85025; 93005; 99284

== ENCOUNTER → 2019-11-19 12:59 | Outpatient (CLI) | payer OTHER, SELFPAY ==
--- NOTE | 2019-11-19 13:21 | DIET.PN ---
Dietary Progress Note RD f/u for obesity and HTN. Pt has lost 3.5# in 2w, current weight 188# would like to lose 15#. Pt was found to have elevated BP 200/150 at dentist c no overt sx and sent to [facility] who sent her to ER. Pt has medication adjustment. Continued wt loss will help BP. Pt has not been exercising but is still following ketogenic diet. Pt having difficulty keeping protein levels down. Discussed reducing protein portions and increasing healthy fat portion (avocado, olive oil). Gave pt recipe for shaved zucchini salad c olive oil and lemon. Plan for 2w f/u to assess wt.
== END ==
PROVIDERS: PCP Nurse Practitioner Family; Referring Provider Nurse Practitioner Family; Visit Provider Nurse Practitioner Family
DX: E66.9 Obesity, unspecified (principal); I10 Essential (primary) hypertension; Z71.3 Dietary counseling and surveillance
CPT/HCPCS: 97802

== ENCOUNTER → 2019-12-03 12:23 | Outpatient (CLI) | payer OTHER, SELFPAY ==
--- NOTE | 2019-12-03 12:32 | DIET.PN ---
Dietary Progress Note F/u eric Ley regarding weight loss and BP Pt back up to 191#, feeling down that she has gained weight, is constipated, and misses eating fruits and vegetables. Pt started the ketogenic diet a while back to lose weight before meeting c RD, does not like to exercise, but feels it isn't working and won't be sustainable longterm. Pt has been getting ~11g fiber (50% of needs) and limiting herself to 18g CHO per day and around 1500kcals. Pt curious if she can add some carbs back to her program and still lose weight. Usual Day: 9am B: 2 eggs in 1T evoo L: protein c protein D: main of protein and a salad 8pm Sn: nuts Nutrition Diagnosis: poor nutrition quality of life r/t following ketogenic diet to lose weight aeb pt not losing weight, pt misses F/V, pt constipated. Interventions: Encouraged pt to increase carbs to up to 120g/d which is a generic carb controlled diet for woman her size. Pt not comfortable increasing this far but will increase to 30-60g CHO/d. Discussed food sources of fiber and carbs and how these foods can assist her weight loss and lower BP. Pt will focus on increasing carbs by increasing fruits and veggie intake rather than grain/processed foods. Pt excited to have melon, pears, sweet potato, and some beans. Reiterated to pt that she should still monitor calories and not take this as permission to open the floodgates to the foods she was previously restricting, but a way to get very healthy foods back into her diet which will support health. Pt will limit pasta, rice, and pizza each to once every other week, never in a row. This way she can enjoy the foods, but will stay on track with her weight loss plan. Pt excited to go to store today to purchase these healthy, whole foods. Monitoring/Evaluations: f/u 1mo to assess weight, BP, and problem solve barriers.
== END ==
PROVIDERS: PCP Nurse Practitioner Family; Referring Provider Nurse Practitioner Family; Visit Provider Nurse Practitioner Family
DX: K59.00 Constipation, unspecified (principal); Z71.3 Dietary counseling and surveillance
CPT/HCPCS: 97802

== ENCOUNTER → 2019-12-12 11:46 | Outpatient (CLI) | payer OTHER, SELFPAY ==
[2019-12-12 12:54] LABS: Hematocrit 42.3 % (36-46); Hemoglobin 13.9 g/dL (12.0-16.0); Mean Corpuscular HGB Conc 32.8 % (30-36); Mean Corpuscular Hemoglobin 31.9 PG (26-34); Mean Corpuscular Volume 97.2 fL (80-100); Platelet Count 182 X10^3/uL (150-400); Red Blood Cell Count 4.36 X10^6/uL (4.0-5.2); Red Cell Distribution Width 14.3 % (11.6-14.8); White Blood Cell Count 3.8 X10^3/uL (4.5-11.0)
[2019-12-12 13:01] LABS: INR 1.5 (0.9-1.3); Prothrombin Time 16.9 SECONDS (10.1-12.7)
[2019-12-12 13:07] LABS: HEMOLYSIS < 15 (0-50); Iron 89 ug/dL (37-170)
[2019-12-12 13:10] LABS: BUN Creatinine Ratio 15.3 (6-22); Blood Urea Nitrogen 15 mg/dL (7-17); Calcium 9.9 mg/dL (8.4-10.2); Carbon Dioxide 28 mmol/L (22-32); Chloride 105 mmol/L (98-107); Estimated Glomerular Filt Rate 54.9 mL/min (>60); Glucose 98 mg/dL (80-110); HEMOLYSIS < 15 (0-50); Potassium 4.8 mmol/L (3.4-5.1); Sodium 139 mmol/L (137-145)
[2019-12-12 13:18] LABS: Percent Iron Saturation 31 % (15-50); Total Iron Binding Capacity 287 ug/dL (265-497); Transferrin 220 mg/dL (206-381)
[2019-12-12 13:39] LABS: TSH w/ Reflex to FT4 1.23 uIU/mL (0.47-4.68)
[2019-12-12 13:43] LABS: Ferritin 82 ng/mL (11-264)
== END ==
PROVIDERS: PCP Nurse Practitioner Family; Referring Provider Nurse Practitioner Family; Visit Provider Nurse Practitioner Family
DX: L60.3 Nail dystrophy (principal); I10 Essential (primary) hypertension; I48.91 Unspecified atrial fibrillation; Z79.01 Long term (current) use of anticoagulants
CPT/HCPCS: 36415; 80048; 82728; 83540; 83550; 84443; 85027; 85610

== ENCOUNTER → 2019-12-31 11:54 | Outpatient (CLI) | payer OTHER, SELFPAY ==
--- NOTE | 2019-12-31 12:01 | DIET.PN ---
Dietary Progress Note Assessment: 79y F f/u c RD for weight management and HTN Pt had been following ketogenic diet without much weight loss and was missing F/V, had some constipation. Pt has increased intake of karly seeds and doubled carb intake to ~60g/d without weight gain. Pt is having some bruising, does drink 2 martinis each night. Discussed Vitamin K content of food, interaction c Coumadin blood thinner. Gave pt handout c Vitamin K content of foods and instructions to work c provider/monitor INR for interactions. Encouraged pt to make hummus out of black soybeans to support heart health and eat with fresh radish for same. Pt continues to have barriers for attaining 150 min exercise per day but is looking into stationary bicycle. WT: 190# f/u 4w to assess progress
== END ==
PROVIDERS: PCP Nurse Practitioner Family; Referring Provider Nurse Practitioner Family; Visit Provider Nurse Practitioner Family
DX: I10 Essential (primary) hypertension (principal); K59.00 Constipation, unspecified; Z71.3 Dietary counseling and surveillance
CPT/HCPCS: 97803

== ENCOUNTER 2020-02-18 11:14 | Emergency (ER) | payer OTHER, SELFPAY ==
[2020-02-18] VITALS (12 sets, daily range): BP systolic 175–236; BP diastolic 68–112; PULSE 55–70; RESP 16–26; TEMP 36.7; O2SAT 93–98
--- NOTE | 2020-02-18 11:31 | DI.RAD.S_ITS ---
PROCEDURE: XR CHEST 1V INDICATIONS: chest pain TECHNIQUE: One view of the chest was acquired. COMPARISON: [facility], CR, XR CHEST 1V, 11/05/2019, 11:51. FINDINGS: Surgical changes and devices: A left breast clip is seen. Lungs and pleura: Lungs are clear. No pleural effusions or pneumothorax. Mediastinum: The cardiac contours are within normal limits. The aorta demonstrates calcification and tortuosity. Bones and chest wall: Age-appropriate bony degenerative changes are seen. No suspicious bony lesions. Overlying soft tissues appear unremarkable. IMPRESSION: Unremarkable portable plain film study for age. Dictated by: Jose Lea M.D. on 02/18/2020 at 10:45 Approved by: Jose Lea M.D. on 02/18/2020 at 10:46
[2020-02-18 11:48] LABS: Add Manual Diff / Slide Review NO; Basophils Absolute Auto 0 /uL (0-100); Basophils Percent Auto 0.5 % (0-2); Eosinophils Absolute Auto 100 /uL (0-450); Eosinophils Percent Auto 1.2 % (2-4); Hematocrit 43.7 % (36-46); Hemoglobin 14.6 g/dL (12.0-16.0); INR 2.4 (0.9-1.3); Lymphocytes Absolute Auto 2000 /uL (1100-4500); Lymphocytes Percent Auto 33.1 % (25-40); Mean Corpuscular HGB Conc 33.5 % (30-36); Mean Corpuscular Hemoglobin 32.5 PG (26-34); Mean Corpuscular Volume 97.1 fL (80-100); Monocytes Absolute Auto 600 /uL (0-900); Monocytes Percent Auto 10.4 % (3-14); Neutrophils Absolute Auto 3300 /uL (1500-7000); Neutrophils Percent Auto 54.8 % (50-75); Platelet Count 183 X10^3/uL (150-400); Prothrombin Time 26.9 SECONDS (10.1-12.7); Red Blood Cell Count 4.51 X10^6/uL (4.0-5.2); Red Cell Distribution Width 14.7 % (11.6-14.8)
[2020-02-18 11:51] LABS: PTT Partial Thromboplastin Tim 41 SECONDS (26.4-36.2)
[2020-02-18 11:52] LABS: Alanine Aminotransferase 22 IU/L (<35); Albumin 4.5 g/dL (3.5-5.0); Albumin Globulin Ratio 1.5 (1.0-2.8); Alkaline Phosphatase 110 U/L (38-126); Aspartate Aminotransferase 38 IU/L (14-36); BUN Creatinine Ratio 30.3 (6-22); Bilirubin Total 0.8 mg/dL (0.2-1.3); Blood Urea Nitrogen 30 mg/dL (7-17); Calcium 9.6 mg/dL (8.4-10.2); Carbon Dioxide 24 mmol/L (22-32); Chloride 104 mmol/L (98-107); Creatine Kinase 60 U/L (30-135); Estimated Glomerular Filt Rate 54.2 mL/min (>60); Glucose 111 mg/dL (80-110); HEMOLYSIS 37 (0-50); Lipase 121 U/L (23-300); Potassium 4.5 mmol/L (3.4-5.1); Sodium 137 mmol/L (137-145); Total Protein 7.5 g/dL (6.3-8.2)
[2020-02-18 12:04] LABS: Troponin I < 0.012 ng/mL (0.01-0.034)
--- NOTE | 2020-02-18 13:06 | ED_ITS ---
HPI - General Adult <Maria C DineroFRAKNP-BC - Last Filed: 02/18/20 17:39> General Chief complaint: Hypertension Stated complaint: blood pressure over 200,slight tingle on left side Time Seen by Provider: 02/18/20 11:43 Source: patient Mode of arrival: Ambulatory Limitations: no limitations History of Present Illness HPI narrative: The patient is a 71-year-old female former smoker with history of atrial fibrillation on Coumadin who presents with a chief complaint of blood pressure over 200 systolic and a ?sensation of her left arm. She states that she saw her primary care provider yesterday, who increased her losartan to 50 mg daily. She took her 1st dose of that this morning. She took her blood pressure after to see if it was effective, and noticed that her blood pressure was high, then she states she took her blood pressure ?too many times and noticed that 1 of the readings was over 200. She denies any chest pain or shortness of breath. She denies any pain over left arm, pressure over left arm states ?is impossible to describe just feels different.She denies any symptoms at this point time such as headache, nausea vomiting diarrhea abdominal pain chest pain palpitati ons etcetera. She states that this was the 1st time she took her increased dose of losartan this morning. Related Data Home Medications Medication Instructions Recorded Confirmed warfarin 5 mg tablet 5 mg PO 3XW tab 11/13/19 02/17/20 calcium carbonate-vitamin D3 600 tab PO 12/16/19 02/17/20 mg(1,500 mg)-400 unit chewable tablet cholecalciferol (vitamin D3) 25 25 mcg PO DAILY 12/16/19 02/17/20 mcg (1,000 unit) capsule Previous Rx's Medication Instructions Recorded flecainide 150 mg tablet 150 mg PO BID #20 tab 09/20/17 atenolol 25 mg tablet 25 mg PO BID #180 tab 04/07/19 atorvastatin 20 mg tablet 20 mg PO HS #90 tab 04/09/19 warfarin 3 mg tablet 3 mg PO 4XW #90 tab 04/29/19 losartan 25 mg tablet 25 mg PO DAILY #90 tab 01/21/20 cetirizine 10 mg capsule 10 mg PO DAILY #90 cap 02/17/20 Allergies Allergy/AdvReac Type Severity Reaction Status Date / Time lisinopril AdvReac Mild Cough Verified 02/18/20 14:58 Review of Systems <EDVIN Patel - Last Filed: 02/18/20 17:39> Review of Systems Narrative: GENERAL: Denies chills, fatigue, malaise, fever, sweats. HEENT: Denies sinus pain, ear pain, sore throat, difficulty swallowing, dizziness. RESPIRATORY: Denies dyspnea, cough, wheezing, hemoptysis, sputum. CARDIOVASCULAR: See HPI GASTROINTESTINAL: Denies nausea, vomiting, abdominal pain, diarrhea, constipation, melena. : Denies dysuria, frequency, incontinence, hematuria, urinary retention. MUSCULOSKELETAL: denies weakness, joint pain, or bony pain SKIN: Denies rash, skin lesions, or other NEUROLOGIC: Denies weakness, headache, numbness, change in speech, confusion, seizures, incoordination. PSYCHIATRIC: No concerning psychosocial issues. 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 Mother No problems noted. Social History Smoking Status: Former smoker Tobacco: How many years used: 25 second hand exposure: No alcohol intake: current (wine once a day.) substance use type: does not use Smoking Status: Former smoker alcohol intake frequency: 0-2 drinks per day Substance Use Type: does not use Exam <EDVIN Patel - Last Filed: 02/18/20 17:39> Narrative Exam Narrative: GENERAL: This is a well-nourished, well-developed patient, in no acute distress HEAD: Atraumatic. Normocephalic. No temporal or scalp tenderness. EYES: Pupils equal round and reactive. Extraocular motions intact. No scleral icterus. No injection or drainage. ENT: Nose without bleeding, purulent drainage or septal hematoma. Throat without erythema, tonsillar hypertrophy or exudate. Uvula midline. Airway patent. NECK: Trachea midline. No JVD or lymphadenopathy. Supple, nontender, no meningeal signs. CARDIOVASCULAR: Regular rate and rhythm RESPIRATORY: Clear to auscultation. Breath sounds equal bilaterally. No wheezes, rales, or rhonchi. No cough. No increased respiratory effort. No accessory muscle use. GASTROINTESTINAL: Abdomen soft, non-tender, nondistended. No hepato- splenomegaly, or palpable masses. No guarding. EXTREMITIES: No clubbing, cyanosis, or edema. No joint tenderness, effusion, or edema noted. BACK: Nontender without deformity or crepitance. No flank tenderness. NEURO: AOx3. Strength is equal in upper extremities bilaterally. No gross cranial nerve deficit. Clear speech. Stable gait. SKIN: No rash or erythema on visible skin Initial Vital Signs Initial Vital Signs: Vital Signs Temperature 98.1 F 02/18/20 11:20 Pulse Rate 63 02/18/20 11:20 Respiratory Rate 17 02/18/20 11:20 Blood Pressure 236/112 H 02/18/20 11:20 Pulse Oximetry 98 02/18/20 11:20 <Milagro Sorensen MD - Last Filed: 02/19/20 11:00> Initial Vital Signs Initial Vital Signs: Vital Signs Temperature 98.1 F 02/18/20 11:20 Pulse Rate 63 02/18/20 11:20 Respiratory Rate 17 02/18/20 11:20 Blood Pressure 236/112 H 02/18/20 11:20 Pulse Oximetry 98 02/18/20 11:20 Scores <EDVIN Patel - Last Filed: 02/18/20 17:39> GCS Darlyn coma scale eye opening: Spontaneous [place] coma scale verbal response: Orientated [place] coma scale motor response: Obey commands Darlyn coma scale total score: 15 Course <EDVIN Patel - Last Filed: 02/18/20 17:39> Orders Ordered: ED Orders 02/18/20 11:26 Complete Blood Count AUTO DIFF Stat Comprehensive Metabolic Panel Stat Lipase Stat Partial Thromboplastin Time Stat Prothrombin Time INR Stat Troponin & CK Cardiac Panel Stat 02/18/20 11:31 XR chest 1V Stat EKG-12 Lead Stat 02/18/20 13:42 Troponin & CK Cardiac Panel Stat Vital Signs Vital signs: Vital Signs - 8 hr 02/18/20 11:20 02/18/20 11:22 02/18/20 11:30 Temperature 98.1 F Pulse Rate 63 70 64 Respiratory Rate 17 24 26 H Blood Pressure 236/112 H 226/105 H 212/85 H Pulse Oximetry 98 97 96 02/18/20 11:45 02/18/20 12:00 02/18/20 12:15 Temperature Pulse Rate 63 62 59 L Respiratory Rate 18 23 16 Blood Pressure 198/82 H 185/81 H 187/77 H Pulse Oximetry 97 98 94 02/18/20 12:30 02/18/20 12:31 02/18/20 12:45 Temperature Pulse Rate 57 L 57 L 57 L Respiratory Rate 17 17 23 Blood Pressure 187/78 H 202/79 H Pulse Oximetry 93 93 94 02/18/20 13:00 02/18/20 13:15 02/18/20 15:05 Temperature Pulse Rate 58 L 55 L Respiratory Rate 17 21 Blood Pressure 196/88 H 175/71 H 184/68 H Pulse Oximetry 94 95 <Milagro Sorensen MD - Last Filed: 02/19/20 11:00> Orders Ordered: ED Orders 02/18/20 11:26 Complete Blood Count AUTO DIFF Stat Comprehensive Metabolic Panel Stat Lipase Stat Partial Thromboplastin Time Stat Prothrombin Time INR Stat Troponin & CK Cardiac Panel Stat 02/18/20 11:31 XR chest 1V Stat EKG-12 Lead Stat 02/18/20 13:42 Troponin & CK Cardiac Panel Stat Vital Signs Vital signs: Vital Signs - 8 hr 02/18/20 11:20 02/18/20 11:22 02/18/20 11:30 Temperature 98.1 F Pulse Rate 63 70 64 Respiratory Rate 17 24 26 H Blood Pressure 236/112 H 226/105 H 212/85 H Pulse Oximetry 98 97 96 02/18/20 11:45 02/18/20 12:00 02/18/20 12:15 Temperature Pulse Rate 63 62 59 L Respiratory Rate 18 23 16 Blood Pressure 198/82 H 185/81 H 187/77 H Pulse Oximetry 97 98 94 02/18/20 12:30 02/18/20 12:31 02/18/20 12:45 Temperature Pulse Rate 57 L 57 L 57 L Respiratory Rate 17 17 23 Blood Pressure 187/78 H 202/79 H Pulse Oximetry 93 93 94 02/18/20 13:00 02/18/20 13:15 02/18/20 15:05 Temperature Pulse Rate 58 L 55 L Respiratory Rate 17 21 Blood Pressure 196/88 H 175/71 H 184/68 H Pulse Oximetry 94 95 Medical Decision Making <NEVAEH Patel-BC - Last Filed: 02/18/20 17:39> Lab Data Lab results reviewed: Yes I reviewed the patient's lab results. Result diagrams: 02/18/20 11:26 02/18/20 11:26 Labs: Lab Results 02/18/20 02/18/20 02/18/20 Range/Units 11:26 11:26 11:26 WBC 6.0 (4.5-11.0) X10^3/uL RBC 4.51 (4.0-5.2) X10^6/uL Hgb 14.6 (12.0-16.0) g/dL Hct 43.7 (36-46) % MCV 97.1 (80-100) fL MCH 32.5 (26-34) PG MCHC 33.5 (30-36) % RDW 14.7 (11.6-14.8) % Plt Count 183 (150-400) X10^3/uL Neut % (Auto) 54.8 (50-75) % Lymph % (Auto) 33.1 (25-40) % [place] % (Auto) 10.4 (3-14) % Eos % (Auto) 1.2 L (2-4) % Baso % (Auto) 0.5 (0-2) % Neut # (Auto) 3300 (1336-9077) /uL Lymph # (Auto) 2000 (5825-2155) /uL [place] # (Auto) 600 (0-900) /uL Eos # (Auto) 100 (0-450) /uL Baso # (Auto) 0 (0-100) /uL PT 26.9 H (10.1-12.7) SECONDS INR 2.4 H (0.9-1.3) APTT 41 H D (26.4-36.2) SECONDS Sodium 137 (137-145) mmol/L Potassium 4.5 (3.4-5.1) mmol/L Chloride 104 (98-107) mmol/L Carbon Dioxide 24 (22-32) mmol/L BUN 30 H (7-17) mg/dL Creatinine 0.99 (0.52-1.04) mg/dL Estimated GFR 54.2 L (>60) mL/min BUN/Creatinine Ratio 30.3 H (6-22) Glucose 111 H (80-110) mg/dL Calcium 9.6 (8.4-10.2) mg/dL Total Bilirubin 0.8 (0.2-1.3) mg/dL AST 38 H (14-36) IU/L ALT 22 (<35) IU/L Alkaline Phosphatase 110 (38-126) U/L Total Creatine Kinase 60 (30-135) U/L CK-MB (CK-2) TNP CK-MB (CK-2) Rel Index TNP Troponin I < 0.012 (0.01-0.034) ng/mL Total Protein 7.5 (6.3-8.2) g/dL Albumin 4.5 (3.5-5.0) g/dL Globulin 3.0 (1.7-4.1) g/dL Albumin/Globulin Ratio 1.5 (1.0-2.8) Lipase 121 (23-300) U/L 02/17/ Range/Units 13:42 WBC (4.5-11.0) X10^3/uL RBC (4.0-5.2) X10^6/uL Hgb (12.0-16.0) g/dL Hct (36-46) % MCV (80-100) fL MCH (26-34) PG MCHC (30-36) % RDW (11.6-14.8) % Plt Count (150-400) X10^3/uL Neut % (Auto) (50-75) % Lymph % (Auto) (25-40) % [place] % (Auto) (3-14) % Eos % (Auto) (2-4) % Baso % (Auto) (0-2) % Neut # (Auto) (1743-0795) /uL Lymph # (Auto) (4846-8466) /uL [place] # (Auto) (0-900) /uL Eos # (Auto) (0-450) /uL Baso # (Auto) (0-100) /uL PT (10.1-12.7) SECONDS INR (0.9-1.3) APTT (26.4-36.2) SECONDS Sodium (137-145) mmol/L Potassium (3.4-5.1) mmol/L Chloride (98-107) mmol/L Carbon Dioxide (22-32) mmol/L BUN (7-17) mg/dL Creatinine (0.52-1.04) mg/dL Estimated GFR (>60) mL/min BUN/Creatinine Ratio (6-22) Glucose (80-110) mg/dL Calcium (8.4-10.2) mg/dL Total Bilirubin (0.2-1.3) mg/dL AST (14-36) IU/L ALT (<35) IU/L Alkaline Phosphatase (38-126) U/L Total Creatine Kinase 53 (30-135) U/L CK-MB (CK-2) TNP CK-MB (CK-2) Rel Index TNP Troponin I < 0.012 (0.01-0.034) ng/mL Total Protein (6.3-8.2) g/dL Albumin (3.5-5.0) g/dL Globulin (1.7-4.1) g/dL Albumin/Globulin Ratio (1.0-2.8) Lipase (23-300) U/L Imaging Data Chest x-ray: Radiologist's Impression: [facility] [address] [place] [id number] XRay Report Signed Patient: Jennie Reyes LMR#: [id number] : 2Acct:[id number] Age/Sex: 79 / FDate of Service: 02/18/20 Loc: ED Accession Number: [id number] Procedure: XR chest 1V Ordering Provider: Milagro Sorensen MD PROCEDURE: XR CHEST 1V INDICATIONS: chest pain TECHNIQUE: One view of the chest was acquired. COMPARISON: [facility], CR, XR CHEST 1V, 11/05/2019, 11:51. FINDINGS: Surgical changes and devices: A left breast clip is seen. Lungs and pleura: Lungs are clear. No pleural effusions or pneumothorax. Mediastinum: The cardiac contours are within normal limits. The aorta demonstrates calcification and tortuosity. Bones and chest wall: Age-appropriate bony degenerative changes are seen. No suspicious bony lesions. Overlying soft tissues appear unremarkable. IMPRESSION: Unremarkable portable plain film study for age. Dictated by: Jose Lea M.D. on 02/18/2020 at 10:45 Approved by: Jose Lea M.D. on 02/18/2020 at 10:46 ECG Data Attestation: I personally reviewed and interpreted this ECG as follows: Interpretation: Sinus rhythm. Ventricular rate 64. P.r. interval to 10. QRS 118. viewed by Dr sorensen MDM Narrative Medical decision making narrative: The patient is a 79-year-old female who presents with a chief complaint of hypertension. She is initial negative troponin, repeat -2 hour troponin. Her EKG has no acute findings. Her lab work is grossly normal. Her blood pressure normalizes in the emergency department to systolic in the 180s. The patient remains symptom free. She wonders if it is possible that she took her blood pressure to soon after exercising, which is entirely possible. I did encourage her to follow up with primary care provider in the next few days, to bring in her home blood pressure cuff for correlation. I did discuss at length not perseverating on her blood pressure, repeat checks at home without breaks in between. I did discussed at length coming back to the emergency department for any acute concerns. Manual blood pressure taken before discharge, to ensure accuracy. Patient has been hemodynamically stable with no chest pain throughout her stay in the emergency department. Patient has no questions or concerns upon discharge and states understanding of return precautions as well as follow-up care. Her INR today is 2.4. Patient has been have no questions or concerns upon discharge and state understanding return precautions as well as follow-up care. <Milagro Sorensen MD - Last Filed: 02/19/20 11:00> Lab Data Labs: Lab Results 02/18/20 02/18/20 02/18/20 Range/Units 11:26 11:26 11:26 WBC 6.0 (4.5-11.0) X10^3/uL RBC 4.51 (4.0-5.2) X10^6/uL Hgb 14.6 (12.0-16.0) g/dL Hct 43.7 (36-46) % MCV 97.1 (80-100) fL MCH 32.5 (26-34) PG MCHC 33.5 (30-36) % RDW 14.7 (11.6-14.8) % Plt Count 183 (150-400) X10^3/uL Neut % (Auto) 54.8 (50-75) % Lymph % (Auto) 33.1 (25-40) % [place] % (Auto) 10.4 (3-14) % Eos % (Auto) 1.2 L (2-4) % Baso % (Auto) 0.5 (0-2) % Neut # (Auto) 3300 (2607-1371) /uL Lymph # (Auto) 2000 (9222-8489) /uL [place] # (Auto) 600 (0-900) /uL Eos # (Auto) 100 (0-450) /uL Baso # (Auto) 0 (0-100) /uL PT 26.9 H (10.1-12.7) SECONDS INR 2.4 H (0.9-1.3) APTT 41 H D (26.4-36.2) SECONDS Sodium 137 (137-145) mmol/L Potassium 4.5 (3.4-5.1) mmol/L Chloride 104 (98-107) mmol/L Carbon Dioxide 24 (22-32) mmol/L BUN 30 H (7-17) mg/dL Creatinine 0.99 (0.52-1.04) mg/dL Estimated GFR 54.2 L (>60) mL/min BUN/Creatinine Ratio 30.3 H (6-22) Glucose 111 H (80-110) mg/dL Calcium 9.6 (8.4-10.2) mg/dL Total Bilirubin 0.8 (0.2-1.3) mg/dL AST 38 H (14-36) IU/L ALT 22 (<35) IU/L Alkaline Phosphatase 110 (38-126) U/L Total Creatine Kinase 60 (30-135) U/L CK-MB (CK-2) TNP CK-MB (CK-2) Rel Index TNP Troponin I < 0.012 (0.01-0.034) ng/mL Total Protein 7.5 (6.3-8.2) g/dL Albumin 4.5 (3.5-5.0) g/dL Globulin 3.0 (1.7-4.1) g/dL Albumin/Globulin Ratio 1.5 (1.0-2.8) Lipase 121 (23-300) U/L 02/18/20 Range/Units 13:42 WBC (4.5-11.0) X10^3/uL RBC (4.0-5.2) X10^6/uL Hgb (12.0-16.0) g/dL Hct (36-46) % MCV (80-100) fL MCH (26-34) PG MCHC (30-36) % RDW (11.6-14.8) % Plt Count (150-400) X10^3/uL Neut % (Auto) (50-75) % Lymph % (Auto) (25-40) % [place] % (Auto) (3-14) % Eos % (Auto) (2-4) % Baso % (Auto) (0-2) % Neut # (Auto) (1336-0203) /uL Lymph # (Auto) (9742-9219) /uL [place] # (Auto) (0-900) /uL Eos # (Auto) (0-450) /uL Baso # (Auto) (0-100) /uL PT (10.1-12.7) SECONDS INR (0.9-1.3) APTT (26.4-36.2) SECONDS Sodium (137-145) mmol/L Potassium (3.4-5.1) mmol/L Chloride (98-107) mmol/L Carbon Dioxide (22-32) mmol/L BUN (7-17) mg/dL Creatinine (0.52-1.04) mg/dL Estimated GFR (>60) mL/min BUN/Creatinine Ratio (6-22) Glucose (80-110) mg/dL Calcium (8.4-10.2) mg/dL Total Bilirubin (0.2-1.3) mg/dL AST (14-36) IU/L ALT (<35) IU/L Alkaline Phosphatase (38-126) U/L Total Creatine Kinase 53 (30-135) U/L CK-MB (CK-2) TNP CK-MB (CK-2) Rel Index TNP Troponin I < 0.012 (0.01-0.034) ng/mL Total Protein (6.3-8.2) g/dL Albumin (3.5-5.0) g/dL Globulin (1.7-4.1) g/dL Albumin/Globulin Ratio (1.0-2.8) Lipase (23-300) U/L Discharge Plan Departure Patient Disposition: Home Clinical Impression: Essential hypertension Discharge Date/Time: 02/18/20 15:32 Instructions: DI for High Blood Pressure Activity Restrictions/Additional Instructions: Thank you for trusting us with your care today. As discussed, your lab work came back well. Your blood pressure has decreased for your stay in the emergency department Please follow-up with primary care provider in the next few days. Discussed, please come back to the emergency department for any acute concerns. Prescriptions: No Action flecainide 150 mg tablet 150 mg PO BID Qty: 20 RF: 1 atenolol 25 mg tablet 25 mg PO BID Qty: 180 RF: 3 atorvastatin [Lipitor] 20 mg tablet 20 mg PO HS Qty: 90 RF: 3 losartan 25 mg tablet 25 mg PO DAILY Qty: 90 RF: 2 warfarin 5 mg tablet 5 mg PO 3XW RF: 0 cholecalciferol (vitamin D3) 25 mcg (1,000 unit) capsule 25 mcg PO DAILY RF: 0 Calcium 600 with Vitamin D3 600 mg(1,500mg) -400 unit tablet,chewable PO RF: 0 warfarin 3 mg tablet 3 mg PO 4XW Qty: 90 RF: 1 cetirizine 10 mg capsule 10 mg PO DAILY Qty: 90 RF: 0 Referrals: Tone Ponce ARNP [Primary Care Provider] - <Milagro Sorensen MD - Last Filed: 02/19/20 11:00> [facility] ED Attending Barbi Attestation: I was immediately available in the department for consultation throughout this patient's visit. I agree with documentation as above. Milagro Sorensen MD
[2020-02-18 13:57] LABS: Creatine Kinase 53 U/L (30-135)
[2020-02-18 14:11] LABS: Troponin I < 0.012 ng/mL (0.01-0.034)
== END 2020-02-18 15:32 | disposition home or self-care (01) ==
PROVIDERS: Emergency Medicine; Emergency Provider Nurse Practitioner Family; PCP Nurse Practitioner Family
DX: I10 Essential (primary) hypertension (principal); I48.91 Unspecified atrial fibrillation; Z79.01 Long term (current) use of anticoagulants
CPT/HCPCS: 36415; 71045; 80053; 82550; 83690; 84484; 85025; 85610; 85730; 93005; 99284

== ENCOUNTER → 2020-05-01 14:44 | Outpatient (CLI) | payer OTHER, SELFPAY ==
[2020-05-01 16:24] LABS: COVID19 -Nasal RAPID Negative (Negative)
== END ==
PROVIDERS: PCP Nurse Practitioner Family; Visit Provider Nurse Practitioner
DX: Z11.59 Encounter for screening for other viral diseases (principal)
CPT/HCPCS: 87635

== ENCOUNTER → 2020-05-20 10:48 | Outpatient (CLI) | payer OTHER, SELFPAY ==
[2020-05-20 12:04] LABS: Hematocrit 41.3 % (36-46); Hemoglobin 13.9 g/dL (12.0-16.0); Mean Corpuscular HGB Conc 33.6 % (30-36); Mean Corpuscular Hemoglobin 32.8 PG (26-34); Mean Corpuscular Volume 97.3 fL (80-100); Platelet Count 219 X10^3/uL (150-400); Red Blood Cell Count 4.24 X10^6/uL (4.0-5.2); Red Cell Distribution Width 13.9 % (11.6-14.8); White Blood Cell Count 5.2 X10^3/uL (4.5-11.0)
[2020-05-20 12:12] LABS: INR 3.8 (0.9-1.3); Prothrombin Time 42.9 SECONDS (10.1-12.7)
[2020-05-20 12:25] LABS: Alanine Aminotransferase 20 IU/L (<35); Albumin 4.1 g/dL (3.5-5.0); Albumin Globulin Ratio 1.4 (1.0-2.8); Alkaline Phosphatase 97 U/L (38-126); Aspartate Aminotransferase 35 IU/L (14-36); BUN Creatinine Ratio 21.9 (6-22); Bilirubin Total 0.4 mg/dL (0.2-1.3); Blood Urea Nitrogen 25 mg/dL (7-17); Calcium 9.3 mg/dL (8.4-10.2); Carbon Dioxide 29 mmol/L (22-32); Chloride 103 mmol/L (98-107); Estimated Glomerular Filt Rate 46.1 mL/min (>60); Glucose 88 mg/dL (80-110); HEMOLYSIS < 15 (0-50); Potassium 4.1 mmol/L (3.4-5.1); Sodium 139 mmol/L (137-145); Total Protein 7.1 g/dL (6.3-8.2)
[2020-05-20 13:30] LABS: Creatinine Urine Random 123.3 mg/dL
[2020-05-20 13:36] LABS: Microalbumi Creatinin Ratio Ur 15.4 ug/mg CR (<30); Microalbumin Urine Random 1.9 mg/dL (0-1.6)
== END ==
PROVIDERS: PCP Nurse Practitioner Family; Referring Provider Nurse Practitioner Family; Visit Provider Nurse Practitioner Family
DX: I10 Essential (primary) hypertension (principal); I48.91 Unspecified atrial fibrillation
CPT/HCPCS: 36415; 80053; 82043; 82570; 85027; 85610

== ENCOUNTER → 2020-06-07 11:06 | Outpatient (CLI) | payer OTHER, SELFPAY ==
[2020-06-07 11:38] LABS: INR 1.9 (0.9-1.3); Prothrombin Time 21.8 SECONDS (10.1-12.7)
== END ==
PROVIDERS: PCP Nurse Practitioner Family; Referring Provider Nurse Practitioner Family; Visit Provider Nurse Practitioner Family
DX: I48.91 Unspecified atrial fibrillation (principal)
CPT/HCPCS: 36415; 85610

== ENCOUNTER → 2020-06-25 09:26 | Outpatient (CLI) | payer OTHER, SELFPAY ==
[2020-06-25 10:35] LABS: INR 2.2 (0.9-1.3); Prothrombin Time 25.7 SECONDS (10.1-12.7)
[2020-06-25 10:55] LABS: BUN Creatinine Ratio 18.5 (6-22); Blood Urea Nitrogen 22 mg/dL (7-17); Calcium 9.6 mg/dL (8.4-10.2); Carbon Dioxide 29 mmol/L (22-32); Chloride 102 mmol/L (98-107); Estimated Glomerular Filt Rate 43.9 mL/min (>60); Glucose 92 mg/dL (80-110); HEMOLYSIS < 15 (0-50); Potassium 4.4 mmol/L (3.4-5.1); Sodium 136 mmol/L (137-145)
== END ==
PROVIDERS: PCP Nurse Practitioner Family; Referring Provider Nurse Practitioner Family; Visit Provider Nurse Practitioner Family
DX: R79.89 Other specified abnormal findings of blood chemistry (principal); I48.91 Unspecified atrial fibrillation
CPT/HCPCS: 36415; 80048; 85610

== ENCOUNTER → 2020-08-16 15:07 | Outpatient (CLI) | payer OTHER, SELFPAY ==
[2020-08-16 16:18] LABS: INR 1.9 (0.9-1.3); Prothrombin Time 21.8 SECONDS (10.1-12.7)
[2020-08-16 16:28] LABS: Blood Urea Nitrogen 22 mg/dL (7-17); Calcium 9.5 mg/dL (8.4-10.2); Carbon Dioxide 26 mmol/L (22-32); Chloride 105 mmol/L (98-107); Glucose 94 mg/dL (80-110); HEMOLYSIS < 15 (0-50); Potassium 3.8 mmol/L (3.4-5.1); Sodium 138 mmol/L (137-145)
== END ==
PROVIDERS: Internal Medicine Cardiovascular Disease; PCP Nurse Practitioner Family; Referring Provider Nurse Practitioner Family; Visit Provider Nurse Practitioner Family
DX: Z51.81 Encounter for therapeutic drug level monitoring (principal); Z79.899 Other long term (current) drug therapy; I48.91 Unspecified atrial fibrillation
CPT/HCPCS: 36415; 80048; 85610

== ENCOUNTER → 2020-09-09 09:29 | Outpatient (CLI) | payer OTHER, SELFPAY ==
[2020-09-09 10:32] LABS: INR 4.5 (0.9-1.3); Prothrombin Time 50.6 SECONDS (10.1-12.7)
== END ==
PROVIDERS: PCP Nurse Practitioner Family; Referring Provider Nurse Practitioner Family; Visit Provider Nurse Practitioner Family
DX: I48.91 Unspecified atrial fibrillation (principal)
CPT/HCPCS: 36415; 85610

== ENCOUNTER → 2020-09-15 11:20 | Outpatient (CLI) | payer OTHER, SELFPAY ==
--- NOTE | 2020-09-15 | DI.MG.S_ITS ---
BILATERAL DIGITAL SCREENING MAMMOGRAM 3D/2D WITH CAD: 09/15/2020 CLINICAL: Routine screening. Comparison is made to exams dated: 10/02/2018 mammogram, 09/26/2017 mammogram, and 09/13/2016 mammogram - [facility]. The tissue of both breasts is extremely dense, which lowers the sensitivity of mammography. Current study was also evaluated with a Computer Aided Detection (CAD) system. There are benign calcifications in the left breast. There also are biopsy clips in the left breast. No significant masses, calcifications, or other findings are seen in either breast. There has been no significant interval change. IMPRESSION: BENIGN There is no mammographic evidence of malignancy. A 1 year screening mammogram is recommended. This exam was interpreted at Station ID: [id number]. NOTE: For mammograms, a report in lay terms will be sent to the patient. Approximately 15% of breast malignancies will not be visualized mammographically. In the management of a palpable breast mass, a negative mammogram must not discourage biopsy of a clinically suspicious lesion. Electronically Signed By: Ahsan alfaro/apple:09/15/2020 16:50:30 letter sent: Normal Exam ACR BI-RADS Category 2: Benign Finding(s) 3342F
== END ==
PROVIDERS: PCP Nurse Practitioner Family; Referring Provider Nurse Practitioner Family; Visit Provider Nurse Practitioner Family
DX: Z12.31 Encounter for screening mammogram for malignant neoplasm of breast (principal)
CPT/HCPCS: 77063; 77067

== ENCOUNTER → 2020-09-16 09:11 | Outpatient (CLI) | payer OTHER, SELFPAY ==
[2020-09-16 11:02] LABS: INR 1.7 (0.9-1.3); Prothrombin Time 19.3 SECONDS (10.1-12.7)
== END ==
PROVIDERS: PCP Nurse Practitioner Family; Referring Provider Nurse Practitioner Family; Visit Provider Nurse Practitioner Family
DX: I48.91 Unspecified atrial fibrillation (principal); Z79.01 Long term (current) use of anticoagulants
CPT/HCPCS: 36415; 85610

== ENCOUNTER → 2020-09-23 10:10 | Outpatient (CLI) | payer OTHER, SELFPAY ==
[2020-09-23 11:14] LABS: Hemoglobin 13.6 g/dL (12.0-16.0); Mean Corpuscular HGB Conc 33.3 % (30-36); Mean Corpuscular Hemoglobin 31.5 PG (26-34); Mean Corpuscular Volume 94.6 fL (80-100); Platelet Count 188 X10^3/uL (150-400); Red Blood Cell Count 4.33 X10^6/uL (4.0-5.2); Red Cell Distribution Width 14.6 % (11.6-14.8); White Blood Cell Count 4.7 X10^3/uL (4.5-11.0)
[2020-09-23 11:21] LABS: INR 3.1 (0.9-1.3); Prothrombin Time 36.5 SECONDS (10.1-12.7)
[2020-09-23 11:33] LABS: Alanine Aminotransferase 20 IU/L (<35); Albumin 3.9 g/dL (3.5-5.0); Albumin Globulin Ratio 1.6 (1.0-2.8); Alkaline Phosphatase 95 U/L (38-126); Aspartate Aminotransferase 34 IU/L (14-36); BUN Creatinine Ratio 17.1 (6-22); Bilirubin Total 0.4 mg/dL (0.2-1.3); Blood Urea Nitrogen 19 mg/dL (7-17); Calcium 9.5 mg/dL (8.4-10.2); Carbon Dioxide 29 mmol/L (22-32); Chloride 103 mmol/L (98-107); Cholesterol 182 mg/dL (140-199); Estimated Glomerular Filt Rate 47.5 mL/min (>60); Globulin 2.5 g/dL (1.7-4.1); Glucose 93 mg/dL (80-110); HDL Cholesterol 73 mg/dL (40-60); HEMOLYSIS < 15 (0-50); LDL Cholesterol Calculated 90 mg/dL (<100); Potassium 4.3 mmol/L (3.4-5.1); Sodium 138 mmol/L (137-145); Total Protein 6.4 g/dL (6.3-8.2); Triglycerides 97 mg/dL (35-150)
[2020-09-23 14:40] LABS: Microalbumi Creatinin Ratio Ur 11.7 ug/mg CR (<30); Microalbumin Urine Random 0.8 mg/dL (0-1.6)
== END ==
PROVIDERS: PCP Nurse Practitioner Family; Referring Provider Nurse Practitioner Family; Visit Provider Nurse Practitioner Family
DX: I10 Essential (primary) hypertension (principal); I48.91 Unspecified atrial fibrillation; E78.5 Hyperlipidemia, unspecified; Z79.01 Long term (current) use of anticoagulants
CPT/HCPCS: 36415; 80053; 80061; 82043; 82570; 85027; 85610

== ENCOUNTER → 2020-10-12 10:21 | Outpatient (CLI) | payer OTHER, SELFPAY ==
[2020-10-12 11:07] LABS: INR 3.4 (0.9-1.3); Prothrombin Time 40.2 SECONDS (10.1-12.7)
== END ==
PROVIDERS: PCP Nurse Practitioner Family; Referring Provider Nurse Practitioner Family; Visit Provider Nurse Practitioner Family
DX: I10 Essential (primary) hypertension (principal)
CPT/HCPCS: 36415; 85610

== ENCOUNTER → 2020-10-25 08:25 | Outpatient (CLI) | payer OTHER, SELFPAY ==
[2020-10-25 09:50] LABS: INR 2.6 (0.9-1.3); Prothrombin Time 29.3 SECONDS (10.1-12.7)
== END ==
PROVIDERS: PCP Nurse Practitioner Family; Referring Provider Nurse Practitioner Family; Visit Provider Nurse Practitioner Family
DX: I48.91 Unspecified atrial fibrillation (principal); Z79.01 Long term (current) use of anticoagulants
CPT/HCPCS: 36415; 85610

== ENCOUNTER → 2020-11-19 09:50 | Outpatient (CLI) | payer OTHER, SELFPAY ==
[2020-11-19 10:28] LABS: INR 3.9 (0.9-1.3)
== END ==
PROVIDERS: PCP Nurse Practitioner Family; Referring Provider Nurse Practitioner Family; Visit Provider Nurse Practitioner Family
DX: I48.91 Unspecified atrial fibrillation (principal); Z79.01 Long term (current) use of anticoagulants
CPT/HCPCS: 36415; 85610

== ENCOUNTER → 2020-11-29 14:20 | Outpatient (CLI) | payer OTHER, SELFPAY ==
[2020-11-29 15:18] LABS: INR 3.9 (0.9-1.3); Prothrombin Time 45.6 SECONDS (10.1-12.7)
== END ==
PROVIDERS: PCP Nurse Practitioner Family; Referring Provider Nurse Practitioner Family; Visit Provider Nurse Practitioner Family
DX: Z79.01 Long term (current) use of anticoagulants (principal)
CPT/HCPCS: 36415; 85610

== ENCOUNTER → 2020-12-09 10:59 | Outpatient (CLI) | payer OTHER, SELFPAY ==
[2020-12-09 12:00] LABS: INR 2.7 (0.9-1.3); Prothrombin Time 31.9 SECONDS (10.1-12.7)
== END ==
PROVIDERS: PCP Nurse Practitioner Family; Referring Provider Nurse Practitioner Family; Visit Provider Nurse Practitioner Family
DX: Z79.01 Long term (current) use of anticoagulants (principal)
CPT/HCPCS: 36415; 85610

== ENCOUNTER → 2020-12-28 11:22 | Outpatient (CLI) | payer OTHER, SELFPAY ==
[2020-12-28 12:50] LABS: INR 1.7 (0.9-1.3)
== END ==
PROVIDERS: PCP Nurse Practitioner Family; Referring Provider Nurse Practitioner Family; Visit Provider Nurse Practitioner Family
DX: Z79.01 Long term (current) use of anticoagulants (principal)
CPT/HCPCS: 36415; 85610

== ENCOUNTER → 2021-01-07 10:17 | Outpatient (CLI) | payer OTHER, SELFPAY ==
[2021-01-07 11:48] LABS: INR 2.2 (0.9-1.3); Prothrombin Time 25.1 SECONDS (10.1-12.7)
== END ==
PROVIDERS: PCP Nurse Practitioner Family; Referring Provider Nurse Practitioner Family; Visit Provider Nurse Practitioner Family
DX: Z79.01 Long term (current) use of anticoagulants (principal)
CPT/HCPCS: 36415; 85610

== ENCOUNTER → 2021-01-26 11:08 | Outpatient (CLI) | payer OTHER, SELFPAY ==
[2021-01-26 13:26] LABS: INR 1.6 (0.9-1.3); Prothrombin Time 17.4 SECONDS (10.1-12.7)
== END ==
PROVIDERS: PCP Nurse Practitioner Family; Referring Provider Nurse Practitioner Family; Visit Provider Nurse Practitioner Family
DX: Z79.01 Long term (current) use of anticoagulants (principal)
CPT/HCPCS: 36415; 85610

== ENCOUNTER → 2021-02-03 09:52 | Outpatient (CLI) | payer OTHER, SELFPAY ==
[2021-02-03 10:32] LABS: INR 1.8 (0.9-1.3); Prothrombin Time 20.5 SECONDS (10.1-12.7)
== END ==
PROVIDERS: PCP Nurse Practitioner Family; Referring Provider Nurse Practitioner Family; Visit Provider Nurse Practitioner Family
DX: Z79.01 Long term (current) use of anticoagulants (principal)
CPT/HCPCS: 36415; 85610

== ENCOUNTER → 2021-02-24 11:49 | Outpatient (CLI) | payer OTHER, SELFPAY ==
[2021-02-24 12:24] LABS: INR 2.5 (0.9-1.3); Prothrombin Time 28.7 SECONDS (10.1-12.7)
== END ==
PROVIDERS: PCP Nurse Practitioner Family; Referring Provider Nurse Practitioner Family; Visit Provider Nurse Practitioner Family
DX: Z79.01 Long term (current) use of anticoagulants (principal)
CPT/HCPCS: 36415; 85610

== ENCOUNTER → 2021-03-23 10:48 | Outpatient (CLI) | payer OTHER, SELFPAY ==
[2021-03-23 11:56] LABS: INR 2.6 (0.9-1.3); Prothrombin Time 29.9 SECONDS (10.1-12.7)
== END ==
PROVIDERS: PCP Nurse Practitioner Family; Referring Provider Nurse Practitioner Family; Visit Provider Nurse Practitioner Family
DX: Z79.01 Long term (current) use of anticoagulants (principal)
CPT/HCPCS: 36415; 85610

== ENCOUNTER → 2021-05-31 12:09 | Outpatient (CLI) | payer OTHER, SELFPAY ==
[2021-05-31 12:48] LABS: Hematocrit 44.9 % (36-46); Hemoglobin 15.1 g/dL (12.0-16.0); Mean Corpuscular HGB Conc 33.6 % (30-36); Mean Corpuscular Volume 95.2 fL (80-100); Platelet Count 191 X10^3/uL (150-400); Red Blood Cell Count 4.72 X10^6/uL (4.0-5.2); Red Cell Distribution Width 13.6 % (11.6-14.8); White Blood Cell Count 5.6 X10^3/uL (4.5-11.0)
[2021-05-31 12:54] LABS: INR 2.5 (0.9-1.3); Prothrombin Time 28.2 SECONDS (10.1-12.7)
[2021-05-31 13:11] LABS: Alanine Aminotransferase 20 IU/L (<35); Albumin 4.2 g/dL (3.5-5.0); Albumin Globulin Ratio 1.6 (1.0-2.8); Alkaline Phosphatase 99 U/L (38-126); Aspartate Aminotransferase 35 IU/L (14-36); BUN Creatinine Ratio 20.4 (6-22); Bilirubin Total 0.4 mg/dL (0.2-1.3); Blood Urea Nitrogen 28 mg/dL (7-17); Calcium 9.5 mg/dL (8.4-10.2); Carbon Dioxide 24 mmol/L (22-32); Chloride 106 mmol/L (98-107); Estimated Glomerular Filt Rate 37.2 mL/min (>60); Globulin 2.7 g/dL (1.7-4.1); Glucose 106 mg/dL (80-110); HEMOLYSIS < 15 (0-50); Potassium 4.4 mmol/L (3.4-5.1); Sodium 138 mmol/L (137-145); Total Protein 6.9 g/dL (6.3-8.2)
== END ==
PROVIDERS: PCP Nurse Practitioner Family; Referring Provider Nurse Practitioner Family; Visit Provider Nurse Practitioner Family
DX: Z79.01 Long term (current) use of anticoagulants (principal); I10 Essential (primary) hypertension
CPT/HCPCS: 36415; 80053; 85027; 85610

== ENCOUNTER → 2021-07-06 11:56 | Outpatient (CLI) | payer OTHER, SELFPAY ==
[2021-07-06 14:27] LABS: INR 2.1 (0.9-1.3); Prothrombin Time 24.5 SECONDS (10.1-12.7)
== END ==
PROVIDERS: PCP Nurse Practitioner Family; Referring Provider Nurse Practitioner Family; Visit Provider Nurse Practitioner Family
DX: Z79.01 Long term (current) use of anticoagulants (principal)
CPT/HCPCS: 36415; 85610

== ENCOUNTER → 2021-07-14 11:30 | Outpatient (CLI) | payer OTHER, SELFPAY ==
[2021-07-14 13:06] LABS: Blood Urea Nitrogen 29 mg/dL (7-17); Calcium 9.5 mg/dL (8.4-10.2); Carbon Dioxide 30 mmol/L (22-32); Chloride 100 mmol/L (98-107); Estimated Glomerular Filt Rate 38.8 mL/min (>60); Glucose 92 mg/dL (80-110); HEMOLYSIS < 15 (0-50); Potassium 4.5 mmol/L (3.4-5.1); Sodium 136 mmol/L (137-145)
== END ==
PROVIDERS: PCP Nurse Practitioner Family; Referring Provider Nurse Practitioner Family; Visit Provider Nurse Practitioner Family
DX: R79.89 Other specified abnormal findings of blood chemistry (principal)
CPT/HCPCS: 36415; 80048

== ENCOUNTER → 2021-08-26 12:15 | Outpatient (CLI) | payer OTHER, SELFPAY ==
[2021-08-26 12:58] LABS: INR 1.6 (0.9-1.3)
== END ==
PROVIDERS: PCP Nurse Practitioner Family; Referring Provider Nurse Practitioner Family; Visit Provider Nurse Practitioner Family
DX: Z79.01 Long term (current) use of anticoagulants (principal)
CPT/HCPCS: 36415; 85610

== ENCOUNTER → 2021-09-08 14:37 | Outpatient (CLI) | payer OTHER, SELFPAY ==
[2021-09-08 15:10] LABS: INR 2.7 (0.9-1.3); Prothrombin Time 31.4 SECONDS (10.1-12.7)
== END ==
PROVIDERS: PCP Nurse Practitioner; Referring Provider Nurse Practitioner; Visit Provider Nurse Practitioner
DX: I48.91 Unspecified atrial fibrillation (principal); Z79.01 Long term (current) use of anticoagulants
CPT/HCPCS: 36415; 85610

== ENCOUNTER → 2021-09-16 10:19 | Outpatient (CLI) | payer OTHER, SELFPAY ==
--- NOTE | 2021-09-16 10:22 | DI.MG.S_ITS ---
BILATERAL DIGITAL SCREENING MAMMOGRAM 3D/2D WITH CAD: 09/16/2021 CLINICAL: Routine screening. Comparison is made to exams dated: 09/15/2020 mammogram, 10/02/2018 mammogram, and 09/26/2017 mammogram - [facility]. The tissue of both breasts is extremely dense, which lowers the sensitivity of mammography. Current study was also evaluated with a Computer Aided Detection (CAD) system. There are benign calcifications in the left breast. There also are biopsy clips in the left breast. No significant masses, calcifications, or other findings are seen in either breast. There has been no significant interval change. IMPRESSION: BENIGN There is no mammographic evidence of malignancy. A 1 year screening mammogram is recommended. This exam was interpreted at Station ID: [id number]. NOTE: For mammograms, a report in lay terms will be sent to the patient. Approximately 15% of breast malignancies will not be visualized mammographically. In the management of a palpable breast mass, a negative mammogram must not discourage biopsy of a clinically suspicious lesion. Electronically Signed By: Neeru loeps/apple:09/16/2021 11:28:46 letter sent: Normal Exam ACR BI-RADS Category 2: Benign Finding(s) 3342F
== END ==
PROVIDERS: PCP Nurse Practitioner; Referring Provider Nurse Practitioner Family; Visit Provider Nurse Practitioner Family
DX: Z12.31 Encounter for screening mammogram for malignant neoplasm of breast (principal)
CPT/HCPCS: 77063; 77067

== ENCOUNTER → 2021-10-31 12:00 | Outpatient (CLI) | payer OTHER, SELFPAY ==
[2021-10-31 13:09] LABS: INR 3.4 (0.9-1.3); Prothrombin Time 39.4 SECONDS (10.1-12.7)
== END ==
PROVIDERS: PCP Nurse Practitioner; Referring Provider Family Medicine; Visit Provider Family Medicine
DX: Z79.01 Long term (current) use of anticoagulants (principal)
CPT/HCPCS: 36415; 85610

== ENCOUNTER → 2021-11-14 13:02 | Outpatient (CLI) | payer OTHER, SELFPAY ==
[2021-11-14 13:55] LABS: INR 3.6 (0.9-1.3)
== END ==
PROVIDERS: PCP Nurse Practitioner; Referring Provider Pediatrics; Visit Provider Pediatrics
DX: Z79.01 Long term (current) use of anticoagulants (principal)
CPT/HCPCS: 36415; 85610

== ENCOUNTER 2021-12-18 15:04 | Emergency (ER) | payer OTHER, SELFPAY ==
[2021-12-18] VITALS (12 sets, daily range): BP systolic 134–168; BP diastolic 61–85; PULSE 52–71; RESP 16–26; TEMP 36.7; O2SAT 94–99
--- NOTE | 2021-12-18 15:17 | DI.RAD.S_ITS ---
PROCEDURE: XR CHEST 1V INDICATIONS: chest pain TECHNIQUE: One view of the chest was acquired. COMPARISON: [facility], CR, XR CHEST 1V, 02/18/2020, 11:33. FINDINGS: Surgical changes and devices: None. Lungs and pleura: Lungs are clear. No pleural effusions or pneumothorax. Mediastinum: Mediastinal contours appear normal. Heart size is normal. Bones and chest wall: No suspicious bony lesions. Overlying soft tissues appear unremarkable. IMPRESSION: No evidence acute pulmonary process. Dictated by: Amadou Greenwood M.D. on 12/18/2021 at 14:40 Approved by: Amadou Greenwood M.D. on 12/18/2021 at 14:40
--- NOTE | 2021-12-18 15:42 | ED_ITS ---
HPI - Dizziness General Chief Complaint: Dizziness Stated Complaint: low blood pressure / dizzy / maybe ear infection Time Seen by Provider: 12/18/21 15:17 Source: patient Mode of arrival: Ambulatory History of Present Illness HPI Narrative: Patient is a 81-year-old female history of hypertension hyperlipidemia, atrial fibrillation on flecainide and Coumadin presenting today with his dad low blood pressure on a little bit of dizziness. She said 2 weeks ago she thinks she had a respiratory cold she had negative COVID test she overall is feeling better from that. She is complaining of some right ear irritation she had her ears irrigated by her primary care provider and ever since then it has been bothersome to her. No fever or chills. No chest pain shortness of breath numbness tingling or weakness. She felt a little lightheaded this morning took her blood pressure a was in 80s. She has been drinking lots of water today in order to stay hydrated from the heat. Patient says she has been doing keto diet for about the last 3 week she has lost about 10 lb, the last week she has been very restrictive on her keto diet. She has also been thinking about intermittently fasting as well. Although today she says she has been drinking a lot of water and eating salted potato chips Related Data Home Medications Medication Instructions Recorded Confirmed warfarin 5 mg tablet See Rx Instructions .Route .COMPLEX 11/28/21 Previous Rx's Medication Instructions Recorded atorvastatin 20 mg tablet See Rx Instructions .Route 04/17/21 .COMPLEX #90 tabs hydrochlorothiazide 12.5 mg tablet 12.5 mg PO DAILY #90 tabs 05/23/21 atenolol 25 mg tablet 25 mg PO BID #120 tabs 10/10/21 flecainide 150 mg tablet 150 mg PO BID #120 tabs 10/10/21 DISABLED PARKING PERMIT #1 ea 11/14/21 Parking Permit... #1 ea 11/14/21 warfarin 3 mg tablet See Rx Instructions PO 4XW #50 tabs 11/28/21 losartan 100 mg tablet 50 mg PO DAILY #90 tabs 12/02/21 Allergies Allergy/AdvReac Type Severity Reaction Status Date / Time lisinopril AdvReac Mild Cough Verified 11/23/21 09:30 Review of Systems Review of Systems Narrative: GENERAL: Denies chills, fatigue, malaise, fever, sweats, travel HEENT: Denies sinus pain, ear pain, sore throat, difficulty swallowing, neck pain RESPIRATORY: Denies dyspnea, cough, wheezing, hemoptysis, sputum. CARDIOVASCULAR: Denies chest pain, palpitations, orthopnea, edema GASTROINTESTINAL: Denies nausea, vomiting, abdominal pain, diarrhea, constipation, melena. : Denies dysuria, frequency, incontinence, hematuria, urinary retention, flank pain. MUSCULOSKELETAL: Denies weakness, joint pain, or bony pain SKIN: No rash, no erythema, no pruritus NEUROLOGIC: See HPI PSYCHIATRIC: No concerning psychosocial issues. 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 Mother No problems noted. Social History Smoking Status: Former smoker Tobacco: How many years used: 25 second hand exposure: No alcohol intake: current (wine once a day.) substance use type: does not use Smoking Status: Former smoker alcohol intake frequency: 0-2 drinks per day Substance Use Type: does not use Exam Initial Vital Signs Initial Vital Signs: Vital Signs Temperature 98.0 F 12/18/21 15:06 Pulse Rate 67 12/18/21 15:06 Respiratory Rate 16 12/18/21 15:06 Blood Pressure 155/85 H 12/18/21 15:06 Pulse Oximetry 97 12/18/21 15:06 Oxygen Delivery Method 12/18/21 15:06 GENERAL: Alert pleasant 81-year-old female no acute distress and in no acute distress. HEENT: Head atraumatic,EOMI, pupils reactive, face symmetric, moist mucous membranes EARS: Tympanic membranes visualized, no erythema or bulging, no hemotympanum CARDIOVASCULAR: Regular rate and rhythm without murmurs, rubs or gallops. RESPIRATORY: Breath sounds equal bilaterally, no wheezes rales or rhonchi. ABDOMEN: Soft, nontender. Normoactive bowel sounds all 4 quadrants. No guard ing or rebound. EXTREMITIES: Normal range of motion, no clubbing or edema. Neurovascularly intact NEUROLOGICAL: Alert and oriented x4.Normal gait and speech. Cranial nerves II through XII grossly intact. SKIN: Warm, dry, no laceration, no petechiae, no rashes or lesions. Scores NIH Stroke Scale Level of Conciousness: Alert, keenly responsive Ask month/age: Answers both questions correctly. Open/close eyes, close hand: Performs both tasks correctly Best gaze horizontal: Normal Visual siu: No visual loss Facial palsy: Normal symetrical movement Left arm drift: No drift for full 10 sec Right arm drift: No drift for full 10 sec Left leg drift: No drift for full 5 sec Right leg drift: No drift for full 5 sec Limb ataxia: Absent Sensory on face/arms/legs: Normal, no sensory loss Best language: No aphasia, normal Dysarthria: Normal Extinction or inattention: No abnormality Total NIH Stroke scale score: 0 Course Orders Ordered: ED Orders 12/18/21 15:17 XR chest 1V Stat EKG-12 Lead Stat 12/18/21 15:34 Complete Blood Count AUTO DIFF Stat Comprehensive Metabolic Panel Stat Lipase Stat Magnesium Stat Prothrombin Time INR Stat Troponin & CK Cardiac Panel Stat 12/18/21 17:16 CT head/brain wo con Stat Vital Signs Vital signs: Vital Signs - 8 hr 12/18/21 15:06 12/18/21 16:06 12/18/21 15:57 Temperature 98.0 F Pulse Rate 67 56 L Pulse Rate [Orthostatic Lying] 55 L Pulse Rate [Orthostatic Sitting] 59 L Pulse Rate [Orthostatic Standing] 70 Respiratory Rate 16 Blood Pressure 155/85 H Blood Pressure [Orthostatic Lying] 134/62 Blood Pressure [Orthostatic Sitting] 139/61 Blood Pressure [Orthostatic Standing] 140/65 Pulse Oximetry 97 97 Oxygen Delivery Method Room Air 12/18/21 15:58 12/18/21 15:58 12/18/21 16:00 Temperature Pulse Rate 55 L Pulse Rate [Orthostatic Lying] Pulse Rate [Orthostatic Sitting] Pulse Rate [Orthostatic Standing] Respiratory Rate 17 Blood Pressure 134/62 139/61 Blood Pressure [Orthostatic Lying] Blood Pressure [Orthostatic Sitting] Blood Pressure [Orthostatic Standing] Pulse Oximetry 94 Oxygen Delivery Method 12/18/21 16:00 12/18/21 16:01 12/18/21 16:01 Temperature Pulse Rate 59 L 61 Pulse Rate [Orthostatic Lying] Pulse Rate [Orthostatic Sitting] Pulse Rate [Orthostatic Standing] Respiratory Rate 18 26 H Blood Pressure 140/65 Blood Pressure [Orthostatic Lying] Blood Pressure [Orthostatic Sitting] Blood Pressure [Orthostatic Standing] Pulse Oximetry 96 95 Oxygen Delivery Method 12/18/21 16:30 12/18/21 17:00 12/18/21 17:16 Temperature Pulse Rate 53 L 52 L 71 Pulse Rate [Orthostatic Lying] Pulse Rate [Orthostatic Sitting] Pulse Rate [Orthostatic Standing] Respiratory Rate 25 H 22 Blood Pressure Blood Pressure [Orthostatic Lying] Blood Pressure [Orthostatic Sitting] Blood Pressure [Orthostatic Standing] Pulse Oximetry 95 97 97 Oxygen Delivery Method 12/18/21 17:16 Temperature Pulse Rate Pulse Rate [Orthostatic Lying] Pulse Rate [Orthostatic Sitting] Pulse Rate [Orthostatic Standing] Respiratory Rate Blood Pressure 157/66 H Blood Pressure [Orthostatic Lying] Blood Pressure [Orthostatic Sitting] Blood Pressure [Orthostatic Standing] Pulse Oximetry Oxygen Delivery Method MDM - Dizziness Lab Data Result diagrams: 12/18/21 15:34 12/18/21 15:34 Labs: Lab Results 12/18/21 12/18/21 12/18/21 Range/Units 15:34 15:34 15:34 WBC 5.0 (4.5-11.0) X10^3/uL RBC 4.64 (4.0-5.2) X10^6/uL Hgb 14.6 (12.0-16.0) g/dL Hct 42.2 (36-46) % MCV 90.9 (80-100) fL MCH 31.4 (26-34) PG MCHC 34.5 (30-36) % RDW 14.4 (11.6-14.8) % Plt Count 205 (150-400) X10^3/uL Neut % (Auto) 52.0 (50-75) % Lymph % (Auto) 34.8 (25-40) % [place]ilton % (Auto) 10.6 (3-14) % Eos % (Auto) 1.9 L (2-4) % Baso % (Auto) 0.7 (0-2) % Neut # (Auto) 2600 (3098-9258) /uL Lymph # (Auto) 1700 (3577-1621) /uL [place] # (Auto) 500 (0-900) /uL Eos # (Auto) 100 (0-450) /uL Baso # (Auto) 0 (0-100) /uL PT 19.2 H (10.1-12.7) SECONDS INR 1.7 H (0.9-1.3) Sodium 128 L (137-145) mmol/L Potassium 4.0 (3.4-5.1) mmol/L Chloride 96 L (98-107) mmol/L Carbon Dioxide 23 (22-32) mmol/L BUN 26 H (7-17) mg/dL Creatinine 1.19 H (0.52-1.04) mg/dL Estimated GFR 46 L (>60) mL/min BUN/Creatinine Ratio 21.8 (6-22) Glucose 116 H (80-110) mg/dL Calcium 8.5 (8.4-10.2) mg/dL Magnesium 2.1 (1.6-2.3) mg/dL Total Bilirubin 0.4 (0.2-1.3) mg/dL AST 34 (14-36) IU/L ALT 19 (<35) IU/L Alkaline Phosphatase 77 (38-126) U/L Total Creatine Kinase 77 (30-135) U/L CK-MB (CK-2) TNP CK-MB (CK-2) Rel Index TNP Troponin I < 0.012 (0.01-0.034) ng/mL Total Protein 7.0 (6.3-8.2) g/dL Albumin 4.2 (3.5-5.0) g/dL Globulin 2.8 (1.7-4.1) g/dL Albumin/Globulin Ratio 1.5 (1.0-2.8) Lipase 155 (23-300) U/L Urine Dip Bedside Urine Glucose Negative Bedside Urine Bilirubin - Negative Bedside Urine Ketone - Negative Urine Specific Embudo 1.010 Bedside Urine Occult Blood - Negative Bedside Urine pH 6.0 Bedside Urine Protein - Negative Bedside Urine Urobilinogen - Negative Bedside Urine Nitrite - Negative Bedside Urine Leukocytes - Negative Esterase Imaging Data CT scan - head: Radiologist's Impression: [address] [address] [address] Scan Report Signed Patient: Jennie Reyes MR#: [id number] : 1940 Acct:[id number] Age/Sex: 81 / F Date of Service: 12/18/21 Loc: ED Accession Number: [id number] ?? Procedure: CT head/brain wo con Ordering Provider: Gladys New D.O. PROCEDURE:? CT HEAD/BRAIN WO CON ? INDICATIONS:? lightheaded, on coumadin ? TECHNIQUE:? Noncontrast 4.5 mm thick angled axial sections acquired from the foramen magnum to the vertex, with coronal and sagittal reformats.? For radiation dose reduction, the following was used:? automated exposure control, adjustment of mA and/or kV according to patient size.? ? COMPARISON:? [facility], CT, HEAD WITHOUT CONTRAST, 06/22/2017, 0:52. ? FINDINGS:? Image quality:? Excellent.? ? CSF spaces:? Basal cisterns are patent.? No extra-axial fluid collections.? The ventricles are symmetric in size and shape.? ? Brain:? No intracranial bleeds or masses.? There is cerebral volume loss for age, with resultant ventricular and sulcal prominence.? There are periventricular and deep white matter chronic small vessel ischemic changes.? There is intracranial internal carotid artery atherosclerosis.? ? Skull and face:? Calvarium and visualized facial bones appear intact, without suspicious lesions.? ? Sinuses:? Visualized sinuses and mastoids are clear.? ? IMPRESSION:? No evidence acute intracranial process. ? ? Dictated by: Amadou Greenwood M.D. on 12/18/2021 at 16:44 ? ECG Data Interpretation: Normal sinus rhythm rate 59 NM interval 246 QRS [address] changes inversion noted in lead 3 only new from previous in 2020 MDM Narrative Medical decision making narrative: The patient has no neuro deficits. She feels a little lightheaded but not actual dizziness. She has no focal deficits. CT is negative. She is noted to be mildly hyponatremic probably drinking so much water. So we discussed cutting back on water adding things like Gatorade. Does some like she is eating salty foods like potato chips. I have emailed her PCP to make sure that she gets her labs recheck. She ambulates without any sort of difficulty. She does not need to stay in the hospital at this time. Discharge Plan Departure Patient Disposition: Home Clinical Impression: Acute hyponatremia Instructions: DI for Hyponatremia Activity Restrictions/Additional Instructions: *You have been diagnosed with mild hyponatremia *What to do: You will need her sodium rechecked tomorrow or the following day your PCP has been given noticed of this. Please decrease your water take by half. You may drink Gatorade or Gatorade like substance. You are not dehydrated. Please increase your fluid intake this will also help your sodium *Continue to take medications as directed *Follow up with your primary care provider in 2-3 days or call [phone] *Return to ER if you should have dizziness lightheadedness weakness numbness tingling or any new, worsening or concerning symptoms Prescriptions: No Action atorvastatin 20 mg tablet See Rx Instructions .ROUTE .COMPLEX Qty: 90 3RF Dose Instruction: Take 1 tablet (20 mg) by mouth at bedtime Rx Instructions: Take 1 tablet (20 mg) by mouth at bedtime hydrochlorothiazide 12.5 mg tablet 12.5 mg PO DAILY Qty: 90 0RF flecainide 150 mg tablet 150 mg PO BID Qty: 120 1RF atenolol 25 mg tablet 25 mg PO BID Qty: 120 1RF (DME) DISABLED PARKING PERMIT See Rx Instructions .ROUTE .MEDSUPPLY Qty: 1 0RF Rx Instructions: I find this patient to be medically disabled and qualified for disabled parking as indicated, and signed, on the accompanying Disabled Parking Application for Individuals. warfarin 3 mg tablet See Rx Instructions PO 4XW Qty: 50 3RF Rx Instructions: 5mg MWF and 3mg all other days, or as directed. losartan 100 mg tablet 50 mg PO DAILY Qty: 90 3RF (DME) Parking Permit... See Rx Instructions .Route .MEDSUPPLY Qty: 1 0RF Rx Instructions: As directed warfarin 5 mg tablet See Rx Instructions .ROUTE .COMPLEX Rx Instructions: 5mg Sunday, Sunday, Sunday and 3mg all other days, or as directed. Referrals: Yasmine Moss ARNP [Primary Care Provider] - Visit Report Forms: Patient Portal/API
[2021-12-18 15:46] LABS: Add Manual Diff / Slide Review NO; Basophils Absolute Auto 0 /uL (0-100); Basophils Percent Auto 0.7 % (0-2); Eosinophils Absolute Auto 100 /uL (0-450); Eosinophils Percent Auto 1.9 % (2-4); Hematocrit 42.2 % (36-46); Hemoglobin 14.6 g/dL (12.0-16.0); Lymphocytes Absolute Auto 1700 /uL (1100-4500); Lymphocytes Percent Auto 34.8 % (25-40); Mean Corpuscular HGB Conc 34.5 % (30-36); Mean Corpuscular Hemoglobin 31.4 PG (26-34); Mean Corpuscular Volume 90.9 fL (80-100); Monocytes Absolute Auto 500 /uL (0-900); Monocytes Percent Auto 10.6 % (3-14); Neutrophils Absolute Auto 2600 /uL (1500-7000); Platelet Count 205 X10^3/uL (150-400); Red Blood Cell Count 4.64 X10^6/uL (4.0-5.2); Red Cell Distribution Width 14.4 % (11.6-14.8)
--- NOTE | 2021-12-18 15:49 | PC.NURSE ---
reports her ear has been bothering her. states low bp at home. denies chest pain.
[2021-12-18 15:52] LABS: Alanine Aminotransferase 19 IU/L (<35); Albumin 4.2 g/dL (3.5-5.0); Albumin Globulin Ratio 1.5 (1.0-2.8); Alkaline Phosphatase 77 U/L (38-126); Aspartate Aminotransferase 34 IU/L (14-36); BUN Creatinine Ratio 21.8 (6-22); Bilirubin Total 0.4 mg/dL (0.2-1.3); Blood Urea Nitrogen 26 mg/dL (7-17); Calcium 8.5 mg/dL (8.4-10.2); Carbon Dioxide 23 mmol/L (22-32); Chloride 96 mmol/L (98-107); Creatine Kinase 77 U/L (30-135); Estimated Glomerular Filt Rate 46 mL/min (>60); Globulin 2.8 g/dL (1.7-4.1); Glucose 116 mg/dL (80-110); HEMOLYSIS 46 (0-50); Lipase 155 U/L (23-300); Magnesium 2.1 mg/dL (1.6-2.3); Sodium 128 mmol/L (137-145)
[2021-12-18 16:04] LABS: Troponin I < 0.012 ng/mL (0.01-0.034)
--- NOTE | 2021-12-18 17:16 | DI.CT.S_ITS ---
PROCEDURE: CT HEAD/BRAIN WO CON INDICATIONS: lightheaded, on coumadin TECHNIQUE: Noncontrast 4.5 mm thick angled axial sections acquired from the foramen magnum to the vertex, with coronal and sagittal reformats. For radiation dose reduction, the following was used: automated exposure control, adjustment of mA and/or kV according to patient size. COMPARISON: [facility], CT, HEAD WITHOUT CONTRAST, 06/22/2017, 0:52. FINDINGS: Image quality: Excellent. CSF spaces: Basal cisterns are patent. No extra-axial fluid collections. The ventricles are symmetric in size and shape. Brain: No intracranial bleeds or masses. There is cerebral volume loss for age, with resultant ventricular and sulcal prominence. There are periventricular and deep white matter chronic small vessel ischemic changes. There is intracranial internal carotid artery atherosclerosis. Skull and face: Calvarium and visualized facial bones appear intact, without suspicious lesions. Sinuses: Visualized sinuses and mastoids are clear. IMPRESSION: No evidence acute intracranial process. Dictated by: Amadou Greenwood M.D. on 12/18/2021 at 16:44 Approved by: Amadou Greenwood M.D. on 12/18/2021 at 16:44
[2021-12-18 17:24] LABS: INR 1.7 (0.9-1.3); Prothrombin Time 19.2 SECONDS (10.1-12.7)
--- NOTE | 2021-12-18 18:05 | PC.NURSE ---
ambulated to bathroom without difficulty.
== END 2021-12-18 18:18 | disposition home or self-care (01) ==
PROVIDERS: Emergency Provider Emergency Medicine; PCP Nurse Practitioner
DX: E87.1 Hypo-osmolality and hyponatremia (principal); R07.9 Chest pain, unspecified; Z79.01 Long term (current) use of anticoagulants
CPT/HCPCS: 36415; 70450; 71045; 80053; 81003; 82550; 83690; 83735; 84484; 85025; 85610; 93005; 99284

== ENCOUNTER → 2021-12-19 11:39 | Outpatient (CLI) | payer OTHER, SELFPAY ==
[2021-12-19 12:32] LABS: INR 1.7 (0.9-1.3); Prothrombin Time 19.5 SECONDS (10.1-12.7)
[2021-12-19 12:47] LABS: Alanine Aminotransferase 20 IU/L (<35); Albumin 4.3 g/dL (3.5-5.0); Albumin Globulin Ratio 1.5 (1.0-2.8); Alkaline Phosphatase 84 U/L (38-126); Aspartate Aminotransferase 34 IU/L (14-36); BUN Creatinine Ratio 14.8 (6-22); Bilirubin Total 0.4 mg/dL (0.2-1.3); Blood Urea Nitrogen 18 mg/dL (7-17); Calcium 8.8 mg/dL (8.4-10.2); Carbon Dioxide 27 mmol/L (22-32); Chloride 99 mmol/L (98-107); Estimated Glomerular Filt Rate 45 mL/min (>60); Globulin 2.8 g/dL (1.7-4.1); Glucose 99 mg/dL (80-110); HEMOLYSIS < 15 (0-50); Potassium 4.8 mmol/L (3.4-5.1); Sodium 135 mmol/L (137-145); Total Protein 7.1 g/dL (6.3-8.2)
== END ==
PROVIDERS: PCP Nurse Practitioner; Referring Provider Nurse Practitioner; Visit Provider Nurse Practitioner
DX: Z79.01 Long term (current) use of anticoagulants (principal); E87.1 Hypo-osmolality and hyponatremia; R42 Dizziness and giddiness
CPT/HCPCS: 36415; 80053; 85610

== ENCOUNTER → 2021-12-23 11:37 | Outpatient (CLI) | payer OTHER, SELFPAY | PROVIDERS: PCP Nurse Practitioner; Referring Provider Nurse Practitioner; Visit Provider Nurse Practitioner | DX: Z13.820 Encounter for screening for osteoporosis; Z78.0 Asymptomatic menopausal state | CPT/HCPCS: 77080 ==

== ENCOUNTER → 2022-01-17 10:55 | Outpatient (CLI) | payer OTHER, SELFPAY ==
[2022-01-17 12:04] LABS: INR 1.6 (0.9-1.3)
== END ==
PROVIDERS: PCP Nurse Practitioner; Referring Provider Nurse Practitioner; Visit Provider Nurse Practitioner
DX: Z79.01 Long term (current) use of anticoagulants (principal)
CPT/HCPCS: 36415; 85610

== ENCOUNTER → 2022-01-21 09:16 | Outpatient (CLI) | payer OTHER, SELFPAY ==
[2022-01-21 10:41] LABS: Alanine Aminotransferase 17 IU/L (<35); Albumin 4.1 g/dL (3.5-5.0); Albumin Globulin Ratio 1.3 (1.0-2.8); Alkaline Phosphatase 88 U/L (38-126); Aspartate Aminotransferase 31 IU/L (14-36); BUN Creatinine Ratio 26.6 (6-22); Bilirubin Total 0.4 mg/dL (0.2-1.3); Blood Urea Nitrogen 29 mg/dL (7-17); Carbon Dioxide 28 mmol/L (22-32); Chloride 108 mmol/L (98-107); Cholesterol 182 mg/dL (140-199); Estimated Glomerular Filt Rate 51 mL/min (>60); Globulin 3.1 g/dL (1.7-4.1); Glucose 99 mg/dL (80-110); HDL Cholesterol 65 mg/dL (40-60); HEMOLYSIS 19 (0-50); LDL Cholesterol Calculated 89 mg/dL (<100); Potassium 4.4 mmol/L (3.4-5.1); Sodium 140 mmol/L (137-145); Total Protein 7.2 g/dL (6.3-8.2); Triglycerides 141 mg/dL (35-150)
[2022-01-21 10:55] LABS: Creatinine Urine Random 86.8 mg/dL
[2022-01-21 10:56] LABS: Free T3, Triiodothyronine Free 2.86 pg/mL (2.77-5.27); Free T4, Direct Thyroxine 0.84 ng/dL (0.78-2.19)
[2022-01-21 11:00] LABS: Microalbumi Creatinin Ratio Ur 9.2 ug/mg CR (<30); Microalbumin Urine Random 0.8 mg/dL (0-1.6)
[2022-01-21 11:08] LABS: Thyroid Stimulating Hormone 1.32 uIU/mL (0.47-4.68)
[2022-01-21 15:12] LABS: Hep C Virus Ab w/Reflex Quant NEGATIVE s/c (NEGATIVE)
== END ==
PROVIDERS: PCP Nurse Practitioner; Referring Provider Nurse Practitioner; Visit Provider Nurse Practitioner
DX: E78.5 Hyperlipidemia, unspecified (principal); I10 Essential (primary) hypertension; I48.91 Unspecified atrial fibrillation
CPT/HCPCS: 36415; 80053; 80061; 82043; 82570; 84439; 84443; 84481; 86803

== ENCOUNTER → 2022-02-14 13:12 | Outpatient (CLI) | payer OTHER, SELFPAY ==
[2022-02-14 14:05] LABS: INR 2.9 (0.9-1.3); Prothrombin Time 33.2 SECONDS (10.1-12.7)
== END ==
PROVIDERS: PCP Nurse Practitioner; Referring Provider Nurse Practitioner; Visit Provider Nurse Practitioner
DX: I48.91 Unspecified atrial fibrillation (principal); Z79.01 Long term (current) use of anticoagulants
CPT/HCPCS: 36415; 85610

== ENCOUNTER → 2022-03-10 11:02 | Outpatient (CLI) | payer OTHER, SELFPAY ==
[2022-03-10 11:29] LABS: INR 2.8 (0.9-1.3); Prothrombin Time 32.3 SECONDS (10.1-12.7)
== END ==
PROVIDERS: PCP Nurse Practitioner; Referring Provider Nurse Practitioner; Visit Provider Nurse Practitioner
DX: I48.91 Unspecified atrial fibrillation (principal); Z79.01 Long term (current) use of anticoagulants
CPT/HCPCS: 36415; 85610

== ENCOUNTER → 2022-03-30 09:42 | Outpatient (CLI) | payer OTHER, SELFPAY ==
[2022-03-30 10:38] LABS: INR 2.2 (0.9-1.3); Prothrombin Time 25.6 SECONDS (10.1-12.7)
[2022-03-30 10:40] LABS: Hematocrit 41.5 % (36-46); Hemoglobin 14.1 g/dL (12.0-16.0)
[2022-03-30 10:49] LABS: BUN Creatinine Ratio 23.6 (6-22); Blood Urea Nitrogen 25 mg/dL (7-17); Calcium 9.3 mg/dL (8.4-10.2); Carbon Dioxide 25 mmol/L (22-32); Chloride 102 mmol/L (98-107); Estimated Glomerular Filt Rate 53 mL/min (>60); Glucose 105 mg/dL (80-110); HEMOLYSIS < 15 (0-50); Potassium 4.2 mmol/L (3.4-5.1); Sodium 138 mmol/L (137-145)
[2022-03-30 12:24] LABS: Creatinine Urine Random 87.6 mg/dL
[2022-03-30 12:28] LABS: Microalbumi Creatinin Ratio Ur 9.1 ug/mg CR (<30); Microalbumin Urine Random 0.8 mg/dL (0-1.6)
== END ==
PROVIDERS: PCP Nurse Practitioner; Referring Provider Internal Medicine Nephrology; Visit Provider Internal Medicine Nephrology
DX: I48.91 Unspecified atrial fibrillation (principal); N17.9 Acute kidney failure, unspecified; I10 Essential (primary) hypertension; Z79.01 Long term (current) use of anticoagulants
CPT/HCPCS: 36415; 80048; 82043; 82570; 85014; 85018; 85610

== ENCOUNTER → 2022-05-08 09:24 | Outpatient (CLI) | payer OTHER, SELFPAY ==
[2022-05-08 10:23] LABS: INR 3.3 (0.9-1.3); Prothrombin Time 38.7 SECONDS (10.1-12.7)
== END ==
PROVIDERS: PCP Nurse Practitioner; Referring Provider Nurse Practitioner; Visit Provider Nurse Practitioner
DX: I48.91 Unspecified atrial fibrillation (principal); Z79.01 Long term (current) use of anticoagulants
CPT/HCPCS: 36415; 85610

== ENCOUNTER → 2022-06-03 09:23 | Outpatient (CLI) | payer OTHER, SELFPAY ==
[2022-06-03 10:41] LABS: Prothrombin Time 34.6 SECONDS (10.1-12.7)
== END ==
PROVIDERS: PCP Nurse Practitioner; Referring Provider Nurse Practitioner; Visit Provider Nurse Practitioner
DX: I48.91 Unspecified atrial fibrillation (principal); Z79.01 Long term (current) use of anticoagulants
CPT/HCPCS: 36415; 85610

== ENCOUNTER → 2022-06-22 12:32 | Outpatient (CLI) | payer OTHER, SELFPAY ==
[2022-06-22 13:50] LABS: INR 2.8 (0.9-1.3); Prothrombin Time 32.5 SECONDS (10.1-12.7)
== END ==
PROVIDERS: PCP Nurse Practitioner; Referring Provider Nurse Practitioner; Visit Provider Nurse Practitioner
DX: I48.91 Unspecified atrial fibrillation (principal); Z79.01 Long term (current) use of anticoagulants
CPT/HCPCS: 36415; 85610

== ENCOUNTER 2022-07-19 07:37 | Emergency (ER) | payer OTHER, SELFPAY ==
[2022-07-19] VITALS (20 sets, daily range): BP systolic 100–186; BP diastolic 55–74; PULSE 52–69; RESP 11–29; TEMP 36; O2SAT 91–97
--- NOTE | 2022-07-19 07:42 | ED_ITS ---
HPI - Neuro Symptoms/Deficit General Chief Complaint: Neuro Symptoms/Deficit Stated Complaint: stroke Time Seen by Provider: 07/19/22 07:41 Source: EMS Mode of arrival: EMS Limitations: altered mental status History of Present Illness HPI Narrative: The patient was well when she went to bed last night. When she awoke this morning, her was helping her up from bed. Slurred speech, and generalized weakness was noted. She apparently had episode of weakness 1-2 weeks ago that resolve with time. Patient is a headache, no complaints of visual changes, she is slow to respond to questions. She does obeys commands during the exam. She is no headache, no chest pain, no dyspnea. She has a history of hypertension, hyperlipidemia, and chronic AFib. She is anticoagulated with Coumadin. On Anticoagulants: Yes Related Data Home Medications Medication Instructions Recorded Confirmed diltiazem HCl 120 mg 120 mg PO DAILY 06/13/22 06/13/22 capsule,extended release 24 hr losartan 50 mg tablet 50 mg PO DAILY 06/13/22 warfarin 3 mg tablet See Rx Instructions PO .COMPLEX 06/13/22 06/13/22 warfarin 5 mg tablet See Rx Instructions .Route .COMPLEX 06/13/22 06/13/22 Previous Rx's Medication Instructions Recorded flecainide 150 mg tablet 150 mg PO BID #120 tabs 10/10/21 DISABLED PARKING PERMIT #1 ea 11/14/21 Parking Permit... #1 ea 11/14/21 atorvastatin 20 mg tablet See Rx Instructions .Route 04/11/22 .COMPLEX #90 tabs propranolol 10 mg tablet 10 mg PO BID #180 tabs 07/14/22 Allergies Allergy/AdvReac Type Severity Reaction Status Date / Time lisinopril AdvReac Mild Cough Verified 06/13/22 09:02 Review of Systems Constitutional Constitutional: Denies chills, Denies fever(s), Denies frequent falls, Denies headache(s) and Reports weakness (Generalized) Eyes Eyes: Denies change in vision ENT Ears, Nose, Mouth, and Throat: Denies vertigo, Denies dizziness and Denies headache(s) Cardiovascular Cardiovascular: Denies chest pain, Denies rapid heart rate, Denies pedal edema and Denies dyspnea Respiratory Respiratory: Denies cough and Denies dyspnea Gastrointestinal Gastrointestinal: Denies abdominal pain Genitourinary Genitourinary: Denies dysuria and Denies flank pain Musculoskeletal Musculoskeletal: Denies back pain and Denies myalgias Neurologic Neurologic: Reports behavioral changes, Denies vertigo, Denies dizziness, Denies frequent falls, Denies headache(s) and Reports weakness (Generalized) Psychiatric Psychiatric: Reports behavioral changes Hematologic/Lymphatic On Anticoagulants: Yes Patient History Medical History Anticoagulation monitoring, INR range 2-3 Atrial fibrillation (01/22/14) Chronic kidney disease, stage 3 (06/2020) Dysphagia Essential hypertension GERD (gastroesophageal reflux disease) (Unknown) Hyperlipidemia Intention tremor Nail brittleness (~10/2019) Osteopenia after menopause Sciatica (Unknown) Seasonal allergies Sleep apnea Squamous cell carcinoma (~04/2017) Warfarin anticoagulation Surgical History 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) Hx of breast biopsy (08/2014) Family History Father No problems noted. Mother No problems noted. Social History Smoking Status: Former smoker Tobacco: How many years used: 25 second hand exposure: No alcohol intake: current substance use type: does not use Smoking Status: Former smoker alcohol intake frequency: 0-2 drinks per day Substance Use Type: does not use Exam Initial Vital Signs Initial Vital Signs: Vital Signs Temperature 96.8 F L 07/19/22 07:43 Pulse Rate 69 07/19/22 07:43 Respiratory Rate 18 07/19/22 07:43 Blood Pressure 136/61 07/19/22 07:43 Pulse Oximetry 97 07/19/22 07:43 Oxygen Delivery Method Room Air 07/19/22 07:43 Const General: cooperative and lethargic (Slow verbal and physical responses.) HENTN Head: normocephalic and occipital foramen tenderness Nose: external nose normal Face and sinus: normal facial exam (No facial droop) Mouth: oral mucosae normal Throat: posterior oropharynx normal Eyes Conjunctivae: conjunctivae normal Sclera: sclerae normal Pupils: PERRL EOM: EOM intact bilaterally Other: No visual field cuts. Neck Neck: other (No bruit) Thyroid: thyroid normal Resp Auscultation: clear to auscultation bilaterally Cardio Rate: regular rate Rhythm: regular rhythm Heart Sounds: S1 normal, S2 normal and no murmurs GI Inspection: normal to inspection Palpation: soft and No tender Back/Spine/Pelvis Back: normal to inspection Skin General: no rashes or lesions noted Neuro General: patient awake and patient oriented x3 Other: Generalized weakness. No focal deficits. See NIHSS. There is no facial droop. She moves upper extremities, but slowly. There is no deficit. She is symmetrically weak in both lower extremities. Speech is slurred. She is oriented. Exam is not suggestive of a focal deficits such as a stroke, perhaps encephalopathy. Extrem General: normal to inspection, no pedal edema and no calf tenderness Psych Speech and Movement: speech and movement normal Other: Slurred speech. Calm. Pleasant. Course Course Course Narrative: 08:10. Head CT discussed with Radiology. No acute findings on head CT. No complication to tPA, however she is not a candidate. CTA head and neck is ordered. 10:00. No significant vascular lesions found on CT. Admission for neurologic changes, questionable stroke were entertained. Hospitalist was consulted. Encephalopathy was of concern. The patient slowly improved. She became more coherent and clear. Apparently after 40 years, she and her had marijuana last night. She made bro wnies. As conversations with her the nurse continued, she noted that she really like the brownies, she apparently had several. Over her ER stay, her sensorium and weakness clear. She was up and ambulatory on her walker without assistance. Patient noted she was hungry, she and her departed to get something to eat. We discussed managing her consumption of marijuana. Orders Ordered: ED Orders 07/19/22 10:25 Urinalysis and Microscopic Stat Urine Drug Screen, Rapid Stat Discontinued Medications Aspirin (Aspirin 81 Mg Chew Tab) 324 mg PO NOW ONE Stop: 07/19/22 08:12 Last Admin: 07/19/22 08:25 Dose: 324 mg Documented By: JESUS Vital Signs Vital signs: Vital Signs - 8 hr 07/19/22 11:38 07/19/22 11:39 07/19/22 11:39 Pulse Rate 59 L 58 L Respiratory Rate 11 L Blood Pressure 186/72 H Pulse Oximetry 96 96 07/19/22 12:00 07/19/22 12:01 07/19/22 12:01 Pulse Rate 57 L 62 Respiratory Rate 14 25 H Blood Pressure 151/65 H Pulse Oximetry 95 94 07/19/22 12:29 07/19/22 12:29 07/19/22 12:30 Pulse Rate 59 L 57 L Respiratory Rate 18 15 Blood Pressure 165/70 H Pulse Oximetry 96 97 MDM - Neuro Symptoms/Deficit Lab Data 07/19/22 07:43 07/19/22 07:43 Labs: Lab Results 07/19/22 07/19/22 07/19/22 Range/Units 07:43 07:43 07:43 WBC 7.5 (4.5-11.0) X10^3/uL RBC 4.32 (4.0-5.2) X10^6/uL Hgb 13.7 (12.0-16.0) g/dL Hct 41.3 (36-46) % MCV 95.8 (80-100) fL MCH 31.8 (26-34) PG MCHC 33.2 (30-36) % RDW 14.3 (11.6-14.8) % Plt Count 189 (150-400) X10^3/uL Neut % (Auto) 73.3 (50-75) % Lymph % (Auto) 15.8 L (25-40) % [place] % (Auto) 9.8 (3-14) % Eos % (Auto) 0.9 L (2-4) % Baso % (Auto) 0.2 (0-2) % Neut # (Auto) 5500 (3212-8969) /uL Lymph # (Auto) 1200 (3711-7276) /uL [place] # (Auto) 700 (0-900) /uL Eos # (Auto) 100 (0-450) /uL Baso # (Auto) 0 (0-100) /uL PT 35.2 H (10.1-12.7) SECONDS INR 3.0 H (0.9-1.3) APTT 40 H (26-36) SECONDS Sodium 140 (137-145) mmol/L Potassium 4.6 (3.4-5.1) mmol/L Chloride 103 (98-107) mmol/L Carbon Dioxide 26 (22-32) mmol/L BUN 27 H (7-17) mg/dL Creatinine 1.10 H (0.52-1.04) mg/dL Estimated GFR 51 L (>60) mL/min BUN/Creatinine Ratio 24.5 H (6-22) Glucose 125 H (80-110) mg/dL Calcium 9.2 (8.4-10.2) mg/dL Total Bilirubin 0.4 (0.2-1.3) mg/dL AST 29 (14-36) IU/L ALT 20 (<35) IU/L Alkaline Phosphatase 110 (38-126) U/L Total Creatine Kinase 42 (30-135) U/L CK-MB (CK-2) TNP CK-MB (CK-2) Rel Index TNP Troponin I < 0.012 (0.01-0.034) ng/mL Total Protein 7.2 (6.3-8.2) g/dL Albumin 4.3 (3.5-5.0) g/dL Globulin 2.9 (1.7-4.1) g/dL Albumin/Globulin Ratio 1.5 (1.0-2.8) Urine Color Urine Appearance Urine pH (4.5-8.0) Ur Specific [place] (1.000-1.035) Urine Protein (Negative) Urine Glucose (UA) (Negative) g/dL Urine Ketones (NEGATIVE) Urine Occult Blood (Negative) Urine Nitrate (Negative) Urine Bilirubin (NEGATIVE) Urine Urobilinogen (0.2) E.U./dL Ur Leukocyte Esterase (NEGATIVE) Urine RBC (0-5/HPF) Urine WBC (0-5/HPF) Ur Squamous Epith Cells (0-5/HPF) Urine Bacteria (None) Hyaline Casts (None) Ur Culture Indicated? U Opiates 300ng/mL cut (Negative) Ur Oxycodone Screen (Negative) Urine Methadone Screen (Negative) Ur Barbiturates Screen (Negative) U Tricyclic Antidepress (Negative) Ur Phencyclidine Scrn (Negative) Ur Amphetamines Screen (Negative) U Methamphetamines Scrn (Negative) Ur MDMA Scrn (Ecstasy) (Negative) U Benzodiazepines Scrn (Negative) Urine Cocaine Screen (Negative) U Marijuana (THC) Screen (Negative) Ethyl Alcohol < 10 ( - 10) mg/dL SARS-CoV-2 (PCR) (Negative) 07/19/22 07/19/22 07/19/22 Range/Units 07:57 10:25 10:25 WBC (4.5-11.0) X10^3/uL RBC (4.0-5.2) X10^6/uL Hgb (12.0-16.0) g/dL Hct (36-46) % MCV (80-100) fL MCH (26-34) PG MCHC (30-36) % RDW (11.6-14.8) % Plt Count (150-400) X10^3/uL Neut % (Auto) (50-75) % Lymph % (Auto) (25-40) % [place] % (Auto) (3-14) % Eos % (Auto) (2-4) % Baso % (Auto) (0-2) % Neut # (Auto) (2471-3944) /uL Lymph # (Auto) (1597-6674) /uL [place] # (Auto) (0-900) /uL Eos # (Auto) (0-450) /uL Baso # (Auto) (0-100) /uL PT (10.1-12.7) SECONDS INR (0.9-1.3) APTT (26-36) SECONDS Sodium (137-145) mmol/L Potassium (3.4-5.1) mmol/L Chloride (98-107) mmol/L Carbon Dioxide (22-32) mmol/L BUN (7-17) mg/dL Creatinine (0.52-1.04) mg/dL Estimated GFR (>60) mL/min BUN/Creatinine Ratio (6-22) Glucose (80-110) mg/dL Calcium (8.4-10.2) mg/dL Total Bilirubin (0.2-1.3) mg/dL AST (14-36) IU/L ALT (<35) IU/L Alkaline Phosphatase (38-126) U/L Total Creatine Kinase (30-135) U/L CK-MB (CK-2) CK-MB (CK-2) Rel Index Troponin I (0.01-0.034) ng/mL Total Protein (6.3-8.2) g/dL Albumin (3.5-5.0) g/dL Globulin (1.7-4.1) g/dL Albumin/Globulin Ratio (1.0-2.8) Urine Color Yellow Urine Appearance Clear Urine pH 5.5 (4.5-8.0) Ur Specific [place] >=1.030 H (1.000-1.035) Urine Protein Negative (Negative) Urine Glucose (UA) Negative (Negative) g/dL Urine Ketones Negative (NEGATIVE) Urine Occult Blood Negative (Negative) Urine Nitrate Negative (Negative) Urine Bilirubin Negative (NEGATIVE) Urine Urobilinogen 0.2 (0.2) E.U./dL Ur Leukocyte Esterase Negative (NEGATIVE) Urine RBC None seen (0-5/HPF) Urine WBC 0-1/hpf (0-5/HPF) Ur Squamous Epith Cells None seen (0-5/HPF) Urine Bacteria Occasional (0-1) (None) Hyaline Casts 0-1/lpf (None) Ur Culture Indicated? Cult not indicated U Opiates 300ng/mL cut Negative (Negative) Ur Oxycodone Screen Negative (Negative) Urine Methadone Screen Negative (Negative) Ur Barbiturates Screen Negative (Negative) U Tricyclic Antidepress Negative (Negative) Ur Phencyclidine Scrn Negative (Negative) Ur Amphetamines Screen Negative (Negative) U Methamphetamines Scrn Negative (Negative) Ur MDMA Scrn (Ecstasy) Negative (Negative) U Benzodiazepines Scrn Negative (Negative) Urine Cocaine Screen Negative (Negative) U Marijuana (THC) Screen Positive H (Negative) Ethyl Alcohol ( - 10) mg/dL SARS-CoV-2 (PCR) Negative (Negative) Point of Care Testing Glucose POC 148 Imaging Data Head/Neck CTA: Radiologist's Impression: 1. No acute intracranial process. ? 2. Moderate atrophy and chronic microvascular ischemic changes. ? 3. No areas of hemodynamically significant stenosis, vascular occlusion or aneurysmal dilation within the anterior circulation. ? 4. No areas of hemodynamically significant stenosis, vascular occlusion or aneurysmal dilation within the posterior circulation.? ? 5. No areas of hemodynamically significant stenosis, vascular occlusion or aneurysmal dilation within the neck vasculature. ECG Data Attestation: I personally reviewed and interpreted this ECG as follows: Discharge Plan Departure Patient Disposition: Home Clinical Impression: Cannabis intoxication delirium Instructions: DI for Drug Overdose in Adults Activity Restrictions/Additional Instructions: You obviously over consuming marijuana. If you are going to continue to use the marijuana, you need to be careful with your intake. For the remainder they, rest, be sure you are well hydrated at all times. If your symptoms worsen, return to the ER. Prescriptions: No Action flecainide 150 mg tablet 150 mg PO BID Qty: 120 1RF (DME) DISABLED PARKING PERMIT See Rx Instructions .ROUTE .MEDSUPPLY Qty: 1 0RF Rx Instructions: I find this patient to be medically disabled and qualified for disabled parking as indicated, and signed, on the accompanying Disabled Parking Application for Individuals. atorvastatin 20 mg tablet See Rx Instructions .ROUTE .COMPLEX Qty: 90 3RF Dose Instruction: Take 1 tablet (20 mg) by mouth at bedtime Rx Instructions: Take 1 tablet (20 mg) by mouth at bedtime (DME) Parking Permit... See Rx Instructions .Route .MEDSUPPLY Qty: 1 0RF Rx Instructions: As directed warfarin 5 mg tablet See Rx Instructions .ROUTE .COMPLEX Rx Instructions: 5mg Mon, Wed, Fri, Sun losartan 50 mg tablet 50 mg PO DAILY diltiazem HCl 120 mg capsule,extended release 24hr 120 mg PO DAILY propranolol 10 mg tablet 10 mg PO BID Qty: 180 3RF Rx Instructions: Take 1 tab twice per day for tremors warfarin 3 mg tablet See Rx Instructions PO .COMPLEX Rx Instructions: orally; 3mg Tues, Thurs, Sat Referrals: Yasmine Moss ARNP [Primary Care Provider] - Stand Alone Forms: Patient Portal/API
--- NOTE | 2022-07-19 07:42 | DI.CT.S_ITS ---
PROCEDURE: CT STROKE INDICATIONS: Weakness. Surred speech TECHNIQUE: Noncontrast 4.5 mm thick angled axial sections acquired from the foramen magnum to the vertex, with coronal reformats. For radiation dose reduction, the following was used: automated exposure control, adjustment of mA and/or kV according to patient size. COMPARISON: [facility], CT, CT HEAD/BRAIN WO CON, 12/18/2021, 17:21. FINDINGS: Image quality: Excellent. CSF spaces: Basal cisterns are patent. No extra-axial fluid collections. The ventricles are symmetric in size and shape. Brain: No intracranial bleeds or masses. There is cerebral volume loss for age, with resultant ventricular and sulcal prominence. There are periventricular and deep white matter chronic small vessel ischemic changes. There is intracranial internal carotid artery atherosclerosis. Skull and face: Calvarium and visualized facial bones appear intact, without suspicious lesions. Sinuses: Visualized sinuses and mastoids are clear. IMPRESSION: 1. No acute intracranial findings. 2. Very mild findings likely associated with microvascular ischemic change. These findings were discussed with Dr. Art at 8:07 a.m. On July 19, 2022. This study fulfills neurological imaging criteria for inclusion or exclusion of acute stroke therapies based on available published neurological guidelines. Dictated by: Neeru Lewis M.D. on 07/19/2022 at 8:04 Approved by: Neeru Lewis M.D. on 07/19/2022 at 8:07
[2022-07-19 07:50] LABS: Add Manual Diff / Slide Review NO; Basophils Absolute Auto 0 /uL (0-100); Basophils Percent Auto 0.2 % (0-2); Eosinophils Absolute Auto 100 /uL (0-450); Eosinophils Percent Auto 0.9 % (2-4); Hematocrit 41.3 % (36-46); Hemoglobin 13.7 g/dL (12.0-16.0); Lymphocytes Absolute Auto 1200 /uL (1100-4500); Lymphocytes Percent Auto 15.8 % (25-40); Mean Corpuscular HGB Conc 33.2 % (30-36); Mean Corpuscular Hemoglobin 31.8 PG (26-34); Mean Corpuscular Volume 95.8 fL (80-100); Monocytes Absolute Auto 700 /uL (0-900); Monocytes Percent Auto 9.8 % (3-14); Neutrophils Absolute Auto 5500 /uL (1500-7000); Neutrophils Percent Auto 73.3 % (50-75); Platelet Count 189 X10^3/uL (150-400); Red Blood Cell Count 4.32 X10^6/uL (4.0-5.2); Red Cell Distribution Width 14.3 % (11.6-14.8); White Blood Cell Count 7.5 X10^3/uL (4.5-11.0)
[2022-07-19 07:58] LABS: Prothrombin Time 35.2 SECONDS (10.1-12.7)
[2022-07-19 08:00] LABS: PTT Partial Thromboplastin Tim 40 SECONDS (26-36)
[2022-07-19 08:04] LABS: Alanine Aminotransferase 20 IU/L (<35); Albumin 4.3 g/dL (3.5-5.0); Albumin Globulin Ratio 1.5 (1.0-2.8); Alkaline Phosphatase 110 U/L (38-126); Aspartate Aminotransferase 29 IU/L (14-36); BUN Creatinine Ratio 24.5 (6-22); Bilirubin Total 0.4 mg/dL (0.2-1.3); Blood Urea Nitrogen 27 mg/dL (7-17); Calcium 9.2 mg/dL (8.4-10.2); Carbon Dioxide 26 mmol/L (22-32); Chloride 103 mmol/L (98-107); Creatine Kinase 42 U/L (30-135); Estimated Glomerular Filt Rate 51 mL/min (>60); Ethanol (ETOH) < 10 mg/dL; Globulin 2.9 g/dL (1.7-4.1); Glucose 125 mg/dL (80-110); HEMOLYSIS 28 (0-50); Potassium 4.6 mmol/L (3.4-5.1); Sodium 140 mmol/L (137-145); Total Protein 7.2 g/dL (6.3-8.2)
--- NOTE | 2022-07-19 08:11 | DI.CT.S_ITS ---
PROCEDURE: CT ANGIO HEAD AND NECK INDICATIONS: Possible CVA confussion TECHNIQUE: After the administration of intravenous contrast, 1 mm thick sections acquired from the aortic arch through the [place] of [place]. Post-contrast 4.5 mm thick sections then re-acquired from the foramen magnum to the vertex. 3-dimensional [id number]-nsggreuoxp (MIP) and/or volume rendering reformats were acquired of the central intracranial vasculature and neck separately. For radiation dose reduction, the following was used: automated exposure control, adjustment of mA and/or kV according to patient size. COMPARISON: [facility], CT, CT STROKE, 07/19/2022, 7:46. CT, HEAD WITHOUT CONTRAST, 06/22/2017, 0:52. FINDINGS: Image quality: Excellent. BRAIN: The ventricular system and cortical sulci demonstrate atrophy, consistent for the patient's stated age. There are areas of hypodensity within the periventricular and subcortical white matter. There is no acute intra-or extra axial fluid collection. No acute hemorrhage, mass lesion or midline shift. Brainstem is unremarkable. Globes are symmetrical. Sinuses are aerated. Osseous structures are intact. HEAD CT ANGIOGRAPHY: Anterior circulation: Intracranial internal carotid arteries are normal in size and flow. The flow within the paired anterior cerebral arteries is normal and symmetric. The flow within the middle cerebral arteries is normal and symmetric. The anterior communicating artery is seen. No aneurysms are seen. Posterior circulation: Posterior vertebral arteries are codominant. Visualized portions of the vertebral arteries demonstrate normal caliber, and join to form a normal appearing basilar artery. Flow within the posterior cerebral arteries is normal and symmetric. No aneurysms are seen. 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 The origins of the common carotid arteries appear patent. The common carotid arteries demonstrate normal caliber and courses. The bifurcation regions are both widely patent. The internal carotid arteries demonstrate normal calibers and courses. Posterior circulation: The origins of the vertebral arteries both appear widely patent. The more superior extracranial portions of both vertebral arteries also demonstrate normal courses and calibers. They join to form a normal appearing basilar artery. Soft tissues: Visualized neck soft tissues demonstrate no suspicious abnormalities. Bones: No suspicious bony lesions. Visualized cervical spine appears normally aligned. Degenerative changes are present within the upper cervical spine. IMPRESSION: 1. No acute intracranial process. 2. Moderate atrophy and chronic microvascular ischemic changes. 3. No areas of hemodynamically significant stenosis, vascular occlusion or aneurysmal dilation within the anterior circulation. 4. No areas of hemodynamically significant stenosis, vascular occlusion or aneurysmal dilation within the posterior circulation. 5. No areas of hemodynamically significant stenosis, vascular occlusion or aneurysmal dilation within the neck vasculature. Any quantitative measurements of stenosis were performed using NASCET criteria. Dictated by: Vilma Chapa M.D. on 07/19/2022 at 9:31 Approved by: Vilma Chapa M.D. on 07/19/2022 at 9:38
[2022-07-19 08:15] LABS: Troponin I < 0.012 ng/mL (0.01-0.034)
[2022-07-19 08:25] LABS: COVID19 -Nasal RAPID Negative (Negative)
[2022-07-19] MEDS: ASPIRIN 81 MG CHEW TAB 324 MG PO (08:25)
--- NOTE | 2022-07-19 09:32 | DI.RAD.S_ITS ---
PROCEDURE: XR CHEST 1V INDICATIONS: CVA TECHNIQUE: One view of the chest was acquired. COMPARISON: [facility], CR, XR CHEST 1V, 12/18/2021, 15:24. FINDINGS: Surgical changes and devices: None. Lungs and pleura: Lungs are clear. No pleural effusions or pneumothorax. Mediastinum: Mediastinal contours appear normal. Heart size is normal. Bones and chest wall: No suspicious bony lesions. Overlying soft tissues appear unremarkable. IMPRESSION: No acute pulmonary process. Dictated by: Vilma Chapa M.D. on 07/19/2022 at 10:50 Approved by: Vilma Chapa M.D. on 07/19/2022 at 10:50
[2022-07-19 10:36] LABS: Appearance Urine UA CLEAR; Bilirubin Urine UA NEGATIVE (NEGATIVE); Color Urine UA YELLOW; Glucose Urine UA NEGATIVE (Negative); Ketones Urine UA NEGATIVE (NEGATIVE); Leukocyte Esterase Urine UA NEGATIVE (NEGATIVE); Nitrite Urine UA NEGATIVE (Negative); Occult Blood Urine UA NEGATIVE (Negative); Protein Urine UA NEGATIVE (Negative); Specific Gravity Urine UA >=1.030 (1.000-1.035); Urobilinogen Urine UA 0.2 E.U./dL (0.2)
[2022-07-19 10:37] LABS: pH Urine UA 5.5 (4.5-8.0)
[2022-07-19 10:38] LABS: UR Morphine/Opiate cutoff 300 Negative (Negative); Ur Creatinine Normal (Normal); Ur Specific Gravity Normal (Normal); Urine Amphetamines Negative (Negative); Urine Barbiturates Negative (Negative); Urine Benzodiazepines Negative (Negative); Urine Cocaine Negative (Negative); Urine MDMA Negative (Negative); Urine Methadone Negative (Negative); Urine Methamphetamines Negative (Negative); Urine Oxycodone Negative (Negative); Urine Phencyclidine Negative (Negative); Urine Tetrahydrocannabinol Positive (Negative); Urine Tricyclic Antidepressant Negative (Negative); Urine pH Normal (Normal)
[2022-07-19 10:46] LABS: Bacteria Urine Occasional (0-1); Culture Indicated Urine Cult Not Indicated; Hyaline Casts Urine 0-1/LPF; RBC Urine None Seen (0-5/HPF); Squamous Epithelial Cell Urine None Seen (0-5/HPF); WBC Urine 0-1/HPF (0-5/HPF)
== END 2022-07-19 13:14 | disposition home or self-care (01) ==
PROVIDERS: Emergency Provider Emergency Medicine; PCP Nurse Practitioner
DX: F12.921 Cannabis use, unspecified with intoxication delirium (principal); R07.9 Chest pain, unspecified; R47.81 Slurred speech; Z79.01 Long term (current) use of anticoagulants; Z20.822 Contact with and (suspected) exposure to COVID-19
CPT/HCPCS: 70450; 70496; 70498; 71045; 80053; 80305; 80320; 81001; 82550; 82962; 84484; 85025; 85610; 85730; 87635; 93005; 99285; C9803; Q9967

== ENCOUNTER → 2022-08-17 09:14 | Outpatient (CLI) | payer OTHER, SELFPAY ==
[2022-08-17 10:13] LABS: INR 3.3 (0.9-1.3); Prothrombin Time 38.8 SECONDS (10.1-12.7)
== END ==
PROVIDERS: PCP Nurse Practitioner; Referring Provider Nurse Practitioner; Visit Provider Nurse Practitioner
DX: I48.91 Unspecified atrial fibrillation (principal)
CPT/HCPCS: 36415; 85610

== ENCOUNTER → 2022-09-15 10:22 | Outpatient (CLI) | payer OTHER, SELFPAY ==
--- NOTE | 2022-09-15 | DI.MG.S_ITS ---
BILATERAL DIGITAL SCREENING MAMMOGRAM 3D/2D WITH CAD: 09/15/2022 CLINICAL: Routine screening. Comparison is made to exams dated: 09/16/2021 mammogram, 09/15/2020 mammogram, and 10/02/2018 mammogram - [facility]. Both breasts are heterogeneously dense, which may obscure small masses (category c / 51-75% glandular tissue). Current study was also evaluated with a Computer Aided Detection (CAD) system. There are benign calcifications in the left breast. There also are biopsy clips in the left breast. No significant masses, calcifications, or other findings are seen in either breast. There has been no significant interval change. IMPRESSION: BENIGN There is no mammographic evidence of malignancy. A 1 year screening mammogram is recommended. Based on the Tyrer Cuzick model (a risk assessment model) the patient's lifetime risk is 4.1% and her 10 year risk is 0.0%. According to the ACR, ACS, and NCCN guidelines, an annual breast MRI exam along with mammogram is recommended if the patient's lifetime risk is 20% or greater. This exam was interpreted at Station ID: [id number]. NOTE: For mammograms, a report in lay terms will be sent to the patient. Approximately 15% of breast malignancies will not be visualized mammographically. In the management of a palpable breast mass, a negative mammogram must not discourage biopsy of a clinically suspicious lesion. Electronically Signed By: Neeru lopes/apple:09/15/2022 11:48:29 letter sent: Normal Exam ACR BI-RADS Category 2: Benign Finding(s) [id number]
== END ==
PROVIDERS: PCP Nurse Practitioner; Referring Provider Nurse Practitioner; Visit Provider Nurse Practitioner
DX: Z12.31 Encounter for screening mammogram for malignant neoplasm of breast (principal)
CPT/HCPCS: 77063; 77067

== ENCOUNTER → 2022-09-18 13:27 | Outpatient (CLI) | payer OTHER, SELFPAY ==
[2022-09-18 14:43] LABS: Add Manual Diff / Slide Review NO; Basophils Absolute Auto 0 /uL (0-100); Basophils Percent Auto 0.5 % (0-2); Eosinophils Absolute Auto 200 /uL (0-450); Hematocrit 40.9 % (36-46); Hemoglobin 13.7 g/dL (12.0-16.0); Lymphocytes Absolute Auto 1400 /uL (1100-4500); Lymphocytes Percent Auto 26.6 % (25-40); Mean Corpuscular HGB Conc 33.5 % (30-36); Mean Corpuscular Hemoglobin 31.7 PG (26-34); Mean Corpuscular Volume 94.5 fL (80-100); Monocytes Absolute Auto 600 /uL (0-900); Monocytes Percent Auto 10.6 % (3-14); Neutrophils Absolute Auto 3100 /uL (1500-7000); Neutrophils Percent Auto 59.3 % (50-75); Platelet Count 240 X10^3/uL (150-400); Red Blood Cell Count 4.33 X10^6/uL (4.0-5.2); Red Cell Distribution Width 14.1 % (11.6-14.8); White Blood Cell Count 5.2 X10^3/uL (4.5-11.0)
[2022-09-18 14:53] LABS: INR 2.7 (0.9-1.3); Prothrombin Time 31.5 SECONDS (10.1-12.7)
[2022-09-18 14:58] LABS: Alanine Aminotransferase 21 IU/L (<35); Albumin Globulin Ratio 1.3 (1.0-2.8); Alkaline Phosphatase 102 U/L (38-126); Aspartate Aminotransferase 32 IU/L (14-36); BUN Creatinine Ratio 14.7 (6-22); Bilirubin Total 0.5 mg/dL (0.2-1.3); Blood Urea Nitrogen 16 mg/dL (7-17); Calcium 9.3 mg/dL (8.4-10.2); Carbon Dioxide 31 mmol/L (22-32); Chloride 102 mmol/L (98-107); Estimated Glomerular Filt Rate 51 mL/min (>60); Globulin 3.1 g/dL (1.7-4.1); Glucose 111 mg/dL (80-110); HEMOLYSIS < 15 (0-50); Potassium 4.2 mmol/L (3.4-5.1); Sodium 137 mmol/L (137-145); Total Protein 7.1 g/dL (6.3-8.2)
[2022-09-18 16:46] LABS: Creatinine Urine Random 143.5 mg/dL; Protein (Total) Urine Random 6 mg/dL (0-12); Protein Creatinine Ratio Urine 0.04 GRAM/24H
[2022-09-18 16:50] LABS: Microalbumi Creatinin Ratio Ur 11.1 ug/mg CR (<30); Microalbumin Urine Random 1.6 mg/dL (0-1.6)
[2022-09-18 17:15] LABS: Appearance Urine UA CLEAR; Bilirubin Urine UA NEGATIVE (NEGATIVE); Color Urine UA YELLOW; Glucose Urine UA NEGATIVE (Negative); Ketones Urine UA NEGATIVE (NEGATIVE); Leukocyte Esterase Urine UA NEGATIVE (NEGATIVE); Nitrite Urine UA NEGATIVE (Negative); Occult Blood Urine UA NEGATIVE (Negative); Protein Urine UA NEGATIVE (Negative); Specific Gravity Urine UA 1.015 (1.000-1.035); Urobilinogen Urine UA 0.2 E.U./dL (0.2)
[2022-09-18 17:33] LABS: Bacteria Urine Few (2-10); Culture Indicated Urine Cult Not Indicated; RBC Urine 1-5/HPF (0-5/HPF); Squamous Epithelial Cell Urine 1-5 /HPF (0-5/HPF); WBC Urine 1-5/HPF (0-5/HPF)
== END ==
PROVIDERS: PCP Nurse Practitioner; Referring Provider Internal Medicine Nephrology; Visit Provider Internal Medicine Nephrology
DX: I82.409 Acute embolism and thrombosis of unspecified deep veins of unspecified lower extremity (principal); N18.30 Chronic kidney disease, stage 3 unspecified; N17.9 Acute kidney failure, unspecified; I10 Essential (primary) hypertension
CPT/HCPCS: 36415; 80053; 81001; 82043; 82570; 84156; 85025; 85610

== ENCOUNTER 2022-11-13 10:00 | Outpatient (RCR) | payer OTHER, SELFPAY ==
--- NOTE | 2022-10-02 14:27 | PT.OIE ---
Current Diagnoses Other abnormalities of gait and mobility (10/02/22) Weakness (10/02/22) Other malaise (10/02/22) Other fatigue (10/02/22) History of falling (10/02/22) Past Medical History (Last Reviewed 07/19/22 @ 19:13 by Esteban Art MD) Anticoagulation monitoring, INR range 2-3 Atrial fibrillation (01/22/14) Chronic kidney disease, stage 3 (06/2020) Dysphagia Essential hypertension GERD (gastroesophageal reflux disease) (Unknown) Hyperlipidemia Intention tremor Nail brittleness (~10/2019) Osteopenia after menopause Sciatica (Unknown) Seasonal allergies Sleep apnea Squamous cell carcinoma (~04/2017) Warfarin anticoagulation Past Surgical History (Last Reviewed 07/19/22 @ 19:13 by Esteban Art MD) 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) Hx of breast biopsy (08/2014) Visit Care Team Role Provider Type PARTH Kenny Attending Provider Advanced Burning Plant Operator Family Provider Primary Care Provider Referring Provider Specialty: Family Practice Address: [address] [place] [address], [facility] Email: [email or web address] Physical Therapy Initial Evaluation PT-OP-A Visit Information Start: 10/02/22 10:42 Freq: Status: Active Protocol: Document 10/02/22 10:43 ES (Rec: 10/02/22 12:34 ES [id number]) Out-Patient Physical Therapy Visit Information Visit Information Visit Type Initial Evaluation Visit Start Time 10:55 Visit Stop Time 11:51 Total Visit Minutes 56 Visit Number 06/04 Evaluation Information Evaluation Date 10/02/22 PT-OP-B Current Condition Start: 10/02/22 10:42 Freq: Status: Active Protocol: Document 10/02/22 10:43 ES (Rec: 10/02/22 12:34 ES [id number]) Current Condition History of Current Condition Onset Date 6 months ago Current Complaints Unsteadiness, falls History of Current Condition Patient reported she has been feeling more unsteady lately, especially when leaning forward. Has had a couple LOB and one fall when she bent over to curing pickling packer some towels, then reached for shelves and ended up falling backward to the ground. Does not exercise regularly, though has a stationary recumbant bike. A couple weeks ago she tried to use it but it made her back and sciatica flare up. Does not use any AD for ambulation. Has a lift recliner at home. She reported that she got an outer ear infection a couple of months ago, got some medication from her crib attendant to address it and is getting better. Stated she had a dizziness spell around the same time for a couple of days that resolved. Has a referral to ENT. Wears bifocals all the time, has had the same Rx for about 1.5 years with no change in vision since then. Has been experiencing tremors that started around Thanksgiving last year; is taking medication that seems to help. Denies numbness/tingling. Prior Treatments and Tests None. Has had PT for her sciatica and back pain in the past which was not very helpful. Treatment Goals Patient/Caregiver Goals To feel more steady on her feet, to be able to work in her garden. Prior Functional Status Baseline Function- Gait Limited community distance Baseline Function- Work/School Volunteers at the [employer] 1-2 days/week Baseline Function- Recreation/Hobbies Gardening Current Functional Impairments (Reported) Functional Limitations- Work/School Unable to stand at the counter due to her back pain, had a fall while volunteering at [facility] Functional Limitations- Recreation/ Unable to garden; using pots Hobbies so that she doesn't have to bend over to the ground PT-OP-D Balance Start: 10/02/22 10:42 Freq: Status: Active Protocol: Document 10/02/22 10:43 ES (Rec: 10/02/22 12:34 ES [id number]) Balance Tests mCTSIB mCTSIB Position 1 30 mCTSIB Position 2 30 mCTSIB Position 3 30 mCTSIB Position 4 15 Other Other Balance Tests Performed 4-stage balance test = /0 PT-OP-E Functional Tests Start: 10/02/22 10:42 Freq: Status: Active Protocol: Document 10/02/22 10:43 ES (Rec: 10/02/22 12:34 ES [id number]) Functional Tests Five Times Sit to Stand Test Score 30.9 seconds PT-OP-M Strength Start: 10/02/22 10:42 Freq: Status: Active Protocol: Document 10/02/22 10:43 ES (Rec: 10/02/22 14:25 ES [id number]) Ankle/Foot Strength Ankle and Foot Manual Muscle Testing Right Dorsiflexion (L4) 4 Good Plantarflexion (S1) 3+ Fair+ Comments Hip/knee 5/5 in sitting Left Dorsiflexion (L4) 4 Good Plantarflexion (S1) 3+ Fair+ Comments Hip/knee 5/5 in sitting PT-OP-Q Treatments Start: 10/02/22 10:42 Freq: Status: Active Protocol: Document 10/02/22 10:43 ES (Rec: 10/02/22 14:25 ES [id number]) Neuro Re-Education Treatment Balance Activities 1 Details HEP Comments Instruction with handout provided: standing semi-tandem in corner 3x30s ea side, standing heel/toe raises 3x8 ea B with UE support, both once/day PT-OP-T Assessment and Plan Start: 10/02/22 10:42 Freq: Status: Active Protocol: Document 10/02/22 10:43 ES (Rec: 10/02/22 12:34 ES [id number]) Physical Therapy Assessment Rehab Potential Rehabilitation Potential Good Evaluation Complexity Number of Personal Factors/Comorbidities 0 Number of Body Systems Impaired 1-2 Clinical Presentation at Evaluation Stable Impairments Impairments Balance,Functional Mobility, Strength,Vestibular Goals Three Impairment Balance, functional mobility Intermediate Goal (LTG) Patient will be able to participate in gardening at ground level with minimal c/o unsteadiness and no LOB. LTG Duration 6 weeks Two Impairment Balance Short Term Goal (STG) Patient will be independent with HEP for balance. STG Duration 4 weeks One Impairment Balance Short Term Goal (STG) Patient will be able to return from bending over without LOB . STG Duration 4 weeks Assessment Summary Assessment Patient is a 81 year old female who presents with impaired balance due to decrease in LE strength especially at ankle/lower leg and decreased vestibular function, contributing to LOB with bending over and returning to upright. She is functionally limited with functional activities that involve bending and returning, such as volunteering at [employer] and gardening. She will benefit from skilled PT to address these problems in order to reduce her fall risk and increase her participation in her normal home an community activity. Physical Therapy Plan Frequency and Duration Frequency of Treatment 1x/Week Duration of treatment (weeks) 6 Plan of Care Start Date 10/02/22 Plan of Care End Date 11/13/22 Therapeutic Interventions Therapeutic Interventions Balance Training,Home Exercise Program,Neuromuscular Re- education,Patient/Caregiver Education,Self-Care/Home Management,Therapeutic Activities,Therapeutic Exercises,Vestibular Rehabilitation Next Visit Focus/Plan Next Note Type Treatment Note Next Visit Plan Progress balance ex's with eyes closed/soft surface. Further assess vestibular function.
--- NOTE | 2022-10-02 14:28 | PT.OPPOC ---
Physical, Occupational & Speech Therapy At [facility] Current Diagnoses Other abnormalities of gait and mobility (10/02/22) Weakness (10/02/22) Other malaise (10/02/22) Other fatigue (10/02/22) History of falling (10/02/22) Visit Care Team Role Provider Type PARTH Kenny Attending Provider Advanced Golf Club Facer Family Provider Primary Care Provider Referring Provider Specialty: Family Practice Address: [address] [place] [address], [facility] Email: [email or web address] Plan Of Care PT-OP-T Assessment and Plan Start: 10/02/22 10:42 Freq: Status: Active Protocol: Document 10/02/22 10:43 ES (Rec: 10/02/22 12:34 ES [id number]) Physical Therapy Assessment Rehab Potential Rehabilitation Potential Good Evaluation Complexity Number of Personal Factors/Comorbidities 0 Number of Body Systems Impaired 1-2 Clinical Presentation at Evaluation Stable Impairments Impairments Balance,Functional Mobility, Strength,Vestibular Goals Three Impairment Balance, functional mobility Nursing Home Goal (LTG) Patient will be able to participate in gardening at ground level with minimal c/o unsteadiness and no LOB. LTG Duration 6 weeks Two Impairment Balance Short Term Goal (STG) Patient will be independent with HEP for balance. STG Duration 4 weeks One Impairment Balance Short Term Goal (STG) Patient will be able to return from bending over without LOB . STG Duration 4 weeks Assessment Summary Assessment Patient is a 81 year old female who presents with impaired balance due to decrease in LE strength especially at ankle/lower leg and decreased vestibular function, contributing to LOB with bending over and returning to upright. She is functionally limited with functional activities that involve bending and returning, such as volunteering at [employer] and gardening. She will benefit from skilled PT to address these problems in order to reduce her fall risk and increase her participation in her normal home an community activity. Physical Therapy Plan Frequency and Duration Frequency of Treatment 1x/Week Duration of treatment (weeks) 6 Plan of Care Start Date 10/02/22 Plan of Care End Date 11/13/22 Therapeutic Interventions Therapeutic Interventions Balance Training,Home Exercise Program,Neuromuscular Re- education,Patient/Caregiver Education,Self-Care/Home Management,Therapeutic Activities,Therapeutic Exercises,Vestibular Rehabilitation Next Visit Focus/Plan Next Note Type Treatment Note Next Visit Plan Progress balance ex's with eyes closed/soft surface. Further assess vestibular function. Plan of Care Dates Plan of Care Start Date 10/02/22 Plan of Care End Date 11/13/22 Electronically Signed by: Madison Diaz, PT 10/02/22 1428 If you are in agreement with this Plan of Care, please return a signed and dated copy. I have reviewed this Plan of Care and certify that the skilled therapy services above are required to meet the patient?s needs. Physician Signature Date Printed Name and Credentials Clinical Instructor Signature Printed Name and Credentials
--- NOTE | 2022-10-02 14:39 | PT.OIE ---
Current Diagnoses Other abnormalities of gait and mobility (10/02/22) Weakness (10/02/22) Other malaise (10/02/22) Other fatigue (10/02/22) History of falling (10/02/22) Past Medical History (Last Reviewed 07/19/22 @ 19:13 by Esteban Art MD) Anticoagulation monitoring, INR range 2-3 Atrial fibrillation (01/22/14) Chronic kidney disease, stage 3 (06/2020) Dysphagia Essential hypertension GERD (gastroesophageal reflux disease) (Unknown) Hyperlipidemia Intention tremor Nail brittleness (~10/2019) Osteopenia after menopause Sciatica (Unknown) Seasonal allergies Sleep apnea Squamous cell carcinoma (~04/2017) Warfarin anticoagulation Past Surgical History (Last Reviewed 07/19/22 @ 19:13 by Esteban Art MD) 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) Hx of breast biopsy (08/2014) Visit Care Team Role Provider Type PARTH Kenny Attending Provider Advanced Sustainability Communicator Family Provider Primary Care Provider Referring Provider Specialty: Family Practice Address: [address] [place] [address], [facility] Email: [email or web address] Physical Therapy Initial Evaluation PT-OP-A Visit Information Start: 10/02/22 10:42 Freq: Status: Active Protocol: Document 10/02/22 10:43 ES (Rec: 10/02/22 12:34 ES [id number]) Out-Patient Physical Therapy Visit Information Visit Information Visit Type Initial Evaluation Visit Start Time 10:55 Visit Stop Time 11:51 Total Visit Minutes 56 Visit Number 06/04 Evaluation Information Evaluation Date 10/02/22 PT-OP-B Current Condition Start: 10/02/22 10:42 Freq: Status: Active Protocol: Document 10/02/22 10:43 ES (Rec: 10/02/22 12:34 ES [id number]) Current Condition History of Current Condition Onset Date 6 months ago Current Complaints Unsteadiness, falls History of Current Condition Patient reported she has been feeling more unsteady lately, especially when leaning forward. Has had a couple LOB and one fall when she bent over to picker and packer some towels, then reached for shelves and ended up falling backward to the ground. Does not exercise regularly, though has a stationary recumbant bike. A couple weeks ago she tried to use it but it made her back and sciatica flare up. Does not use any AD for ambulation. Has a lift recliner at home. She reported that she got an outer ear infection a couple of months ago, got some medication from her power transformer repairer to address it and is getting better. Stated she had a dizziness spell around the same time for a couple of days that resolved. Has a referral to ENT. Wears bifocalsa all the time, has had the same Rx for about 1.5 years with no change in vision since then. Has been experiencing tremors that started around Thanksgiving last year; is taking medication that seems to help. Denies numbness/tingling. Prior Treatments and Tests None. Has had PT for her sciatica and back pain in the past which was not very helpful. Treatment Goals Patient/Caregiver Goals To feel more steady on her feet, to be able to work in her garden. Prior Functional Status Baseline Function- Gait Limited community distance Baseline Function- Work/School Volunteers at the [employer] 1-2 days/week Baseline Function- Recreation/Hobbies Gardening Current Functional Impairments (Reported) Functional Limitations- Work/School Unable to stand at the counter due to her back pain, had a fall while volunteering at [facility] Functional Limitations- Recreation/ Unable to garden; using pots Hobbies so that she doesn't have to bend over to the ground PT-OP-C Subjective Start: 10/02/22 10:42 Freq: Status: Active Protocol: Document 10/02/22 10:43 ES (Rec: 10/02/22 14:35 ES [id number]) Patient Questionnaires ABC- Activity Specific Balance Confidence Scale ABC Score 54 ABC Functional Impairment 40 to <60% Impaired (Score 41- 60) PT-OP-D Balance Start: 10/02/22 10:42 Freq: Status: Active Protocol: Document 10/02/22 10:43 ES (Rec: 10/02/22 12:34 ES [id number]) Balance Tests mCTSIB mCTSIB Position 1 30 mCTSIB Position 2 30 mCTSIB Position 3 30 mCTSIB Position 4 15 Other Other Balance Tests Performed 4-stage balance test = PT-OP-E Functional Tests Start: 10/02/22 10:42 Freq: Status: Active Protocol: Document 10/02/22 10:43 ES (Rec: 10/02/22 12:34 ES [id number]) Functional Tests Five Times Sit to Stand Test Score 30.9 seconds PT-OP-M Strength Start: 10/02/22 10:42 Freq: Status: Active Protocol: Document 10/02/22 10:43 ES (Rec: 10/02/22 14:25 ES [id number]) Ankle/Foot Strength Ankle and Foot Manual Muscle Testing Right Dorsiflexion (L4) 4 Good Plantarflexion (S1) 3+ Fair+ Comments Hip/knee 5/5 in sitting Left Dorsiflexion (L4) 4 Good Plantarflexion (S1) 3+ Fair+ Comments Hip/knee 5/5 in sitting PT-OP-Q Treatments Start: 10/02/22 10:42 Freq: Status: Active Protocol: Document 10/02/22 10:43 ES (Rec: 10/02/22 14:25 ES [id number]) Neuro Re-Education Treatment Balance Activities 1 Details HEP Comments Instruction with handout provided: standing semi-tandem in corner 3x30s ea side, standing heel/toe raises 3x8 ea B with UE support, both once/day PT-OP-T Assessment and Plan Start: 10/02/22 10:42 Freq: Status: Active Protocol: Document 10/02/22 10:43 ES (Rec: 10/02/22 12:34 ES [id number]) Physical Therapy Assessment Rehab Potential Rehabilitation Potential Good Evaluation Complexity Number of Personal Factors/Comorbidities 0 Number of Body Systems Impaired 1-2 Clinical Presentation at Evaluation Stable Impairments Impairments Balance,Functional Mobility, Strength,Vestibular Goals Four Impairment Balance confidence Doll Wig Maker Rooted Hair Goal (LTG) Patient will score 67% or higher on ABC scale indicating decreased risk for falls (67% is cut-off score for non- fallers). LTG Duration 6 weeks Three Impairment Balance, functional mobility Doll Wig Maker Rooted Hair Goal (LTG) Patient will be able to participate in gardening at ground level with minimal c/o unsteadiness and no LOB. LTG Duration 6 weeks Two Impairment Balance Short Term Goal (STG) Patient will be independent with HEP for balance. STG Duration 4 weeks One Impairment Balance Short Term Goal (STG) Patient will be able to return from bending over without LOB . STG Duration 4 weeks Assessment Summary Assessment Patient is a 81 year old female who presents with impaired balance due to decrease in LE strength especially at ankle/lower leg and decreased vestibular function, contributing to LOB with bending over and returning to upright. She is functionally limited with functional activities that involve bending and returning, such as volunteering at [employer] and gardening. She will benefit from skilled PT to address these problems in order to reduce her fall risk and increase her participation in her normal home an community activity. Physical Therapy Plan Frequency and Duration Frequency of Treatment 1x/Week Duration of treatment (weeks) 6 Plan of Care Start Date 10/02/22 Plan of Care End Date 11/13/22 Therapeutic Interventions Therapeutic Interventions Balance Training,Home Exercise Program,Neuromuscular Re- education,Patient/Caregiver Education,Self-Care/Home Management,Therapeutic Activities,Therapeutic Exercises,Vestibular Rehabilitation Next Visit Focus/Plan Next Note Type Treatment Note Next Visit Plan Progress balance ex's with eyes closed/soft surface. Further assess vestibular function.
--- NOTE | 2022-10-02 14:40 | PT.OPPOC ---
Physical, Occupational & Speech Therapy At [facility] Current Diagnoses Other abnormalities of gait and mobility (10/02/22) Weakness (10/02/22) Other malaise (10/02/22) Other fatigue (10/02/22) History of falling (10/02/22) Visit Care Team Role Provider Type PARTH Kenny Attending Provider Advanced Pillowcase Folder Family Provider Primary Care Provider Referring Provider Specialty: Family Practice Address: [address] [place] [address], [employer] Email: [email or web address] Plan Of Care PT-OP-T Assessment and Plan Start: 10/02/22 10:42 Freq: Status: Active Protocol: Document 10/02/22 10:43 ES (Rec: 10/02/22 12:34 ES [id number]) Physical Therapy Assessment Rehab Potential Rehabilitation Potential Good Evaluation Complexity Number of Personal Factors/Comorbidities 0 Number of Body Systems Impaired 1-2 Clinical Presentation at Evaluation Stable Impairments Impairments Balance,Functional Mobility, Strength,Vestibular Goals Four Impairment Balance confidence Usp Goal (LTG) Patient will score 67% or higher on ABC scale indicating decreased risk for falls (67% is cut-off score for non- fallers). LTG Duration 6 weeks Three Impairment Balance, functional mobility Usp Goal (LTG) Patient will be able to participate in gardening at ground level with minimal c/o unsteadiness and no LOB. LTG Duration 6 weeks Two Impairment Balance Short Term Goal (STG) Patient will be independent with HEP for balance. STG Duration 4 weeks One Impairment Balance Short Term Goal (STG) Patient will be able to return from bending over without LOB . STG Duration 4 weeks Assessment Summary Assessment Patient is a 81 year old female who presents with impaired balance due to decrease in LE strength especially at ankle/lower leg and decreased vestibular function, contributing to LOB with bending over and returning to upright. She is functionally limited with functional activities that involve bending and returning, such as volunteering at [employer] and gardening. She will benefit from skilled PT to address these problems in order to reduce her fall risk and increase her participation in her normal home an community activity. Physical Therapy Plan Frequency and Duration Frequency of Treatment 1x/Week Duration of treatment (weeks) 6 Plan of Care Start Date 10/02/22 Plan of Care End Date 11/13/22 Therapeutic Interventions Therapeutic Interventions Balance Training,Home Exercise Program,Neuromuscular Re- education,Patient/Caregiver Education,Self-Care/Home Management,Therapeutic Activities,Therapeutic Exercises,Vestibular Rehabilitation Next Visit Focus/Plan Next Note Type Treatment Note Next Visit Plan Progress balance ex's with eyes closed/soft surface. Further assess vestibular function. Plan of Care Dates Plan of Care Start Date 10/02/22 Plan of Care End Date 11/13/22 Electronically Signed by: Madison Diaz, PT 10/02/22 8500 If you are in agreement with this Plan of Care, please return a signed and dated copy. I have reviewed this Plan of Care and certify that the skilled therapy services above are required to meet the patient?s needs. Physician Signature Date Printed Name and Credentials Clinical Instructor Signature Printed Name and Credentials
--- NOTE | 2022-10-09 11:39 | PT.OTN ---
Current Diagnoses Other abnormalities of gait and mobility (10/09/22) Weakness (10/09/22) Other malaise (10/09/22) Other fatigue (10/09/22) History of falling (10/09/22) Physical Therapy Treatment Note PT-OP-A Visit Information Start: 10/02/22 10:42 Freq: Status: Active Protocol: Document 10/09/22 10:28 ES (Rec: 10/09/22 11:39 ES [id number]) Out-Patient Physical Therapy Visit Information Visit Information Visit Type Treatment Note Visit Start Time 10:56 Visit Stop Time 10:32 Total Visit Minutes 36 Visit Number 07/05 Number of BOX PULLER Visits 0 Evaluation Information Evaluation Date 10/02/22 PT-OP-C Subjective Start: 10/02/22 10:42 Freq: Status: Active Protocol: Document 10/09/22 10:28 ES (Rec: 10/09/22 11:39 ES [id number]) OP-PT Subjective Patient Comments Patient Comments Patient reported that she tried doing some gardening but was only able to get one of 4 pots done because she felt weak. Rode her bike 15 minutes 4 times between last visit and now. Didn't do her HEP very much because she didn't quite understand it. Is going to the [employer] heater helper next week to get her ear unplugged. PT-OP-O Vestibular Start: 10/02/22 10:42 Freq: Status: Active Protocol: Document 10/09/22 10:28 ES (Rec: 10/09/22 11:39 ES [id number]) Vestibular Assessment Visual Testing Smooth Pursuits Horizontal Normal Smooth Pursuits Vertical Normal Saccades Horizontal Normal Saccades Vertical Undershoot Convergence Test WNL Vestibulo-Ocular Reflex (VOR1) Negative Vestibulo-Ocular Reflex (VOR2) Negative Vestibulo-Ocular Reflex Cancellation Negative PT-OP-Q Treatments Start: 10/02/22 10:42 Freq: Status: Active Protocol: Document 10/09/22 10:28 ES (Rec: 10/09/22 11:39 ES [id number]) Neuro Re-Education Treatment Balance Activities 2 Details Standing, feet apart, eyes open, ball bounce Surface Foam Equipment Small blue tball Reps/Duration x60sec 1 Details HEP Comments Reviewed with handout. Added feet together eyes open with head turns side to side and up /down 3x30s each. Instructed to increase recumbant bike duration by 5 minutes this week. Instructed and patient demonstrated heel raises with increased ROM. Vestibular Rehabilitation Other- 1 Comments Vestibular assessment; see objective for details PT-OP-T Assessment and Plan Start: 10/02/22 10:42 Freq: Status: Active Protocol: Document 10/09/22 10:28 ES (Rec: 10/09/22 11:39 ES [id number]) Physical Therapy Assessment Goals Four Impairment Balance confidence [facility] Goal (LTG) Patient will score 67% or higher on ABC scale indicating decreased risk for falls (67% is cut-off score for non- fallers). LTG Duration 6 weeks Three Impairment Balance, functional mobility Prepress Stripper Goal (LTG) Patient will be able to participate in gardening at ground level with minimal c/o unsteadiness and no LOB. LTG Duration 6 weeks Two Impairment Balance Short Term Goal (STG) Patient will be independent with HEP for balance. STG Duration 4 weeks One Impairment Balance Short Term Goal (STG) Patient will be able to return from bending over without LOB . STG Duration 4 weeks Assessment Summary Assessment Patient demonstrated fair recall of HEP, requiring cues for completion with appropriate use of support, correct ROM, and correct parameters. She was challenged with standing on foam, and reported fatigue with today's balance exercises . She demonstrated minimal impairment with vestibular testing, though had difficulty with visual stabilization and focus when wearing bifocals which could be contributing to unsteadiness with turning head. She will benefit from further balance training and LE strengthening to increase stability with ADL's. Physical Therapy Plan Next Visit Focus/Plan Next Note Type Treatment Note Next Visit Plan Tilt board for ankle strategies. Balance training on soft surfaces, with and without head turns especially vertical.
--- NOTE | 2022-10-17 10:01 | PT.OTN ---
Current Diagnoses Other abnormalities of gait and mobility (10/17/22) Weakness (10/17/22) Other malaise (10/17/22) Other fatigue (10/17/22) History of falling (10/17/22) Physical Therapy Treatment Note PT-OP-A Visit Information Start: 10/02/22 10:42 Freq: Status: Active Protocol: Document 10/17/22 09:17 ES (Rec: 10/17/22 10:00 ES [id number]) Out-Patient Physical Therapy Visit Information Visit Information Visit Type Treatment Note Visit Start Time Visit Stop Time 10:00 Total Visit Minutes 43 Visit Number 08/02 Number of CLASSIFIED ADVERTISING CLERK Visits 0 Evaluation Information Evaluation Date 10/02/22 PT-OP-C Subjective Start: 10/02/22 10:42 Freq: Status: Active Protocol: Document 10/17/22 09:17 ES (Rec: 10/17/22 10:00 ES [id number]) OP-PT Subjective Patient Comments Patient Comments Patient reported she has been riding her bike regularly but hasn't been doing her balance exercises as much. Does think that they are getting easier. PT-OP-Q Treatments Start: 10/02/22 10:42 Freq: Status: Active Protocol: Document 10/17/22 09:17 ES (Rec: 10/17/22 10:00 ES [id number]) Cardio Equipment Recumbent Bicycle Duration (Minutes) 5 Resistance 7 Therapeutic Exercises Standing Exercises 1 Standing Exercise Name Standing calf stretch Side bilateral Reps/Minutes 3x30s ea Neuro Re-Education Treatment Balance Activities 6 Details Standing forward reach Surface Firm Equipment // bars Reps/Duration x5 ea side 5 Details Standing, eyes closed Surface Firm Equipment // bars Reps/Duration 2x30s ea Comments Narrow, staggered stance 4 Details SLS Surface firm Reps/Duration [id number] ea B Comments Opposite hand supported on foam roll 3 Details Tilt board Equipment // bars Reps/Duration 3x90 sec ea Comments Lateral, fwd/bkwd PT-OP-T Assessment and Plan Start: 10/02/22 10:42 Freq: Status: Active Protocol: Document 10/17/22 09:17 ES (Rec: 10/17/22 10:00 ES [id number]) Physical Therapy Assessment Goals Four Impairment Balance confidence Stove Installer Goal (LTG) Patient will score 67% or higher on ABC scale indicating decreased risk for falls (67% is cut-off score for non- fallers). LTG Duration 6 weeks Three Impairment Balance, functional mobility Halfway Goal (LTG) Patient will be able to participate in gardening at ground level with minimal c/o unsteadiness and no LOB. LTG Duration 6 weeks Two Impairment Balance Short Term Goal (STG) Patient will be independent with HEP for balance. STG Duration 4 weeks One Impairment Balance Short Term Goal (STG) Patient will be able to return from bending over without LOB . STG Duration 4 weeks Progress Towards Goals Progress Towards Goals Progressing Toward Goals Assessment Summary Assessment Patient progressing with balance activities, demonstrating decreased instability with eyes open on firm surfaces. She was challenged with tilt board due to decreased ankle strategies , improved with practice. Physical Therapy Plan Next Visit Focus/Plan Next Note Type Treatment Note Next Visit Plan Continue tilt board, soft surfaces, SLS, and bending activity.
--- NOTE | 2022-10-23 11:45 | PT.OTN ---
Current Diagnoses Other abnormalities of gait and mobility (10/23/22) Weakness (10/23/22) Other malaise (10/23/22) Other fatigue (10/23/22) History of falling (10/23/22) Physical Therapy Treatment Note PT-OP-A Visit Information Start: 10/02/22 10:42 Freq: Status: Active Protocol: Document 10/23/22 10:50 ES (Rec: 10/23/22 11:45 ES [id number]) Out-Patient Physical Therapy Visit Information Visit Information Visit Type Treatment Note Visit Start Time 11:00 Visit Stop Time 10:40 Total Visit Minutes 40 Visit Number 09/02 Number of SALES ENABLEMENT CONSULTANT Visits 0 Evaluation Information Evaluation Date 10/02/22 PT-OP-B Current Condition Start: 10/02/22 10:42 Freq: Status: Active Protocol: Document 10/02/22 10:43 ES (Rec: 10/02/22 12:34 ES [id number]) Current Condition History of Current Condition Onset Date 6 months ago Current Complaints Unsteadiness, falls History of Current Condition Patient reported she has been feeling more unsteady lately, especially when leaning forward. Has had a couple LOB and one fall when she bent over to order picker/assembler some towels, then reached for shelves and ended up falling backward to the ground. Does not exercise regularly, though has a stationary recumbant bike. A couple weeks ago she tried to use it but it made her back and sciatica flare up. Does not use any AD for ambulation. Has a lift recliner at home. She reported that she got an outer ear infection a couple of months ago, got some medication from her sign manufacturer to address it and is getting better. Stated she had a dizziness spell around the same time for a couple of days that resolved. Has a referral to ENT. Wears bifocalsa all the time, has had the same Rx for about 1.5 years with no change in vision since then. Has been experiencing tremors that started around Thanksgiving last year; is taking medication that seems to help. Denies numbness/tingling. Prior Treatments and Tests None. Has had PT for her sciatica and back pain in the past which was not very helpful. Treatment Goals Patient/Caregiver Goals To feel more steady on her feet, to be able to work in her garden. Prior Functional Status Baseline Function- Gait Limited community distance Baseline Function- Work/School Volunteers at the [employer] 1-2 days/week Baseline Function- Recreation/Hobbies Gardening Current Functional Impairments (Reported) Functional Limitations- Work/School Unable to stand at the counter due to her back pain, had a fall while volunteering at [employer] Functional Limitations- Recreation/ Unable to garden; using pots Hobbies so that she doesn't have to bend over to the ground PT-OP-C Subjective Start: 10/02/22 10:42 Freq: Status: Active Protocol: Document 10/23/22 10:50 ES (Rec: 10/23/22 11:45 ES [id number]) OP-PT Subjective Patient Comments Patient Comments Patient reported she has been doing her exercises more consistently since last visit. Is up to 30 minutes on her bike. Still having balance trouble with walking, but noticed that she was able to bend over while doing some gardening without as much trouble as before. PT-OP-D Balance Start: 10/02/22 10:42 Freq: Status: Active Protocol: Document 10/02/22 10:43 ES (Rec: 10/02/22 12:34 ES [id number]) Balance Tests mCTSIB mCTSIB Position 1 30 mCTSIB Position 2 30 mCTSIB Position 3 30 mCTSIB Position 4 15 Other Other Balance Tests Performed 4-stage balance test = / PT-OP-E Functional Tests Start: 10/02/22 10:42 Freq: Status: Active Protocol: Document 10/02/22 10:43 ES (Rec: 10/02/22 12:34 ES [id number]) Functional Tests Five Times Sit to Stand Test Score 30.9 seconds PT-OP-M Strength Start: 10/02/22 10:42 Freq: Status: Active Protocol: Document 10/02/22 10:43 ES (Rec: 10/02/22 14:25 ES [id number]) Ankle/Foot Strength Ankle and Foot Manual Muscle Testing Right Dorsiflexion (L4) 4 Good Plantarflexion (S1) 3+ Fair+ Comments Hip/knee 5/5 in sitting Left Dorsiflexion (L4) 4 Good Plantarflexion (S1) 3+ Fair+ Comments Hip/knee 5/5 in sitting PT-OP-O Vestibular Start: 10/02/22 10:42 Freq: Status: Active Protocol: Document 10/09/22 10:28 ES (Rec: 10/09/22 11:39 ES [id number]) Vestibular Assessment Visual Testing Smooth Pursuits Horizontal Normal Smooth Pursuits Vertical Normal Saccades Horizontal Normal Saccades Vertical Undershoot Convergence Test WNL Vestibulo-Ocular Reflex (VOR1) Negative Vestibulo-Ocular Reflex (VOR2) Negative Vestibulo-Ocular Reflex Cancellation Negative PT-OP-Q Treatments Start: 10/02/22 10:42 Freq: Status: Active Protocol: Document 10/23/22 10:50 ES (Rec: 10/23/22 11:45 ES [id number]) Cardio Equipment Recumbent Stepper (Sci-Fit) Duration (Minutes) 8 Resistance 3.0 Seat Position 10 Therapeutic Exercises Standing Exercises 3 Standing Exercise Name Diagonal walking fwd/bkwd ( monster walks) Side bilateral Resistance L1 band at knees Reps/Minutes 3x10 2 Standing Exercise Name Sidestepping Side bilateral Resistance L1 band at knees Reps/Minutes 3x10 Comments Added to HEP 1 Standing Exercise Name Standing calf stretch Side bilateral Reps/Minutes 1x30s ea Neuro Re-Education Treatment Balance Activities 6 Details Standing forward reach Surface firm Equipment foam roll Reps/Duration 2x5 ea side 3 Details Tilt board Equipment // bars Reps/Duration 2x2 min ea Comments Lateral, fwd/bkwd PT-OP-T Assessment and Plan Start: 10/02/22 10:42 Freq: Status: Active Protocol: Document 10/23/22 10:50 ES (Rec: 10/23/22 11:45 ES [id number]) Physical Therapy Assessment Goals Four Impairment Balance confidence Jail Goal (LTG) Patient will score 67% or higher on ABC scale indicating decreased risk for falls (67% is cut-off score for non- fallers). LTG Duration 6 weeks Three Impairment Balance, functional mobility Jail Goal (LTG) Patient will be able to participate in gardening at ground level with minimal c/o unsteadiness and no LOB. LTG Duration 6 weeks Two Impairment Balance Short Term Goal (STG) Patient will be independent with HEP for balance. STG Duration 4 weeks One Impairment Balance Short Term Goal (STG) Patient will be able to return from bending over without LOB . STG Duration 4 weeks Assessment Summary Assessment Patient was challenged with resisted sidestepping/diagnoal stepping due to LE weakness. She required cues for hip and knee alignment and upright posture. She demonstrated improved balance on tilt board this visit. She will continue to benefit from PT to improve dynamic balance through strengthening and balance training. Physical Therapy Plan Next Visit Focus/Plan Next Note Type Progress Note Next Visit Plan Progress LE strengthening, dynamic balance training.
--- NOTE | 2022-11-06 10:57 | PT.OTN ---
Current Diagnoses Other abnormalities of gait and mobility (11/06/22) Weakness (11/06/22) Other malaise (11/06/22) Other fatigue (11/06/22) History of falling (11/06/22) Physical Therapy Treatment Note PT-OP-A Visit Information Start: 10/02/22 10:42 Freq: Status: Active Protocol: Document 11/06/22 10:03 ES (Rec: 11/06/22 10:56 ES [id number]) Out-Patient Physical Therapy Visit Information Visit Information Visit Type Progress Note Visit Start Time 10:03 Visit Stop Time 10:46 Total Visit Minutes 43 Visit Number 10/02 Number of EXECUTIVE OFFICE MANAGER Visits 0 PT-OP-B Current Condition Start: 10/02/22 10:42 Freq: Status: Active Protocol: Document 10/02/22 10:43 ES (Rec: 10/02/22 12:34 ES [id number]) Current Condition History of Current Condition Onset Date 6 months ago Current Complaints Unsteadiness, falls History of Current Condition Patient reported she has been feeling more unsteady lately, especially when leaning forward. Has had a couple LOB and one fall when she bent over to fruit or nut picker some towels, then reached for shelves and ended up falling backward to the ground. Does not exercise regularly, though has a stationary recumbant bike. A couple weeks ago she tried to use it but it made her back and sciatica flare up. Does not use any AD for ambulation. Has a lift recliner at home. She reported that she got an outer ear infection a couple of months ago, got some medication from her log hauler to address it and is getting better. Stated she had a dizziness spell around the same time for a couple of days that resolved. Has a referral to ENT. Wears bifocalsa all the time, has had the same Rx for about 1.5 years with no change in vision since then. Has been experiencing tremors that started around Thanksgiving last year; is taking medication that seems to help. Denies numbness/tingling. Prior Treatments and Tests None. Has had PT for her sciatica and back pain in the past which was not very helpful. Treatment Goals Patient/Caregiver Goals To feel more steady on her feet, to be able to work in her garden. PT-OP-C Subjective Start: 10/02/22 10:42 Freq: Status: Active Protocol: Document 11/06/22 10:03 ES (Rec: 11/06/22 10:56 ES [id number]) OP-PT Subjective Patient Comments Patient Comments Patient reported that she feels she is getting better. Is not as tentative about stepping down curbs as much as before. Is able to reach down to ground level and stand back up without feeling unsteady or losing balance. Has been gardening but in pots as it is easier on her back/ legs. Has no other specific concerns about her balance. Patient Reported Progress Improving Patient Questionnaires ABC- Activity Specific Balance Confidence Scale ABC Score 63.4 ABC Functional Impairment 20 to <40% Impaired (Score 61- 80) PT-OP-D Balance Start: 10/02/22 10:42 Freq: Status: Active Protocol: Document 11/06/22 10:03 ES (Rec: 11/06/22 10:56 ES [id number]) Balance Tests mCTSIB mCTSIB Position 1 30 mCTSIB Position 2 30 mCTSIB Position 3 30 mCTSIB Position 4 23 Other Other Balance Tests Performed 4-stage balance test = PT-OP-E Functional Tests Start: 10/02/22 10:42 Freq: Status: Active Protocol: Document 11/06/22 10:03 ES (Rec: 11/06/22 10:56 ES [id number]) Functional Tests Five Times Sit to Stand Test Score 16.5 seconds PT-OP-M Strength Start: 10/02/22 10:42 Freq: Status: Active Protocol: Document 11/06/22 10:03 ES (Rec: 11/06/22 10:56 ES [id number]) Ankle/Foot Strength Ankle and Foot Manual Muscle Testing Right Plantarflexion (S1) 4 Good Left Plantarflexion (S1) 4 Good PT-OP-Q Treatments Start: 10/02/22 10:42 Freq: Status: Active Protocol: Document 11/06/22 10:03 ES (Rec: 11/06/22 10:56 ES [id number]) Cardio Equipment Recumbent Stepper (Sci-Fit) Duration (Minutes) 8 Resistance 4.0 Seat Position 10 Therapeutic Exercises Sitting Exercises STS Equipment Used Chair with foam pad, L2 band above knees Reps/Minutes 2x8 Comments HEP (see handout) Standing Exercises 2 Standing Exercise Name Sidestepping Side bilateral Resistance L2 band at knees Reps/Minutes x5 ea Comments HEP - increase to L2 band Neuro Re-Education Treatment Balance Activities 1 Details Balance testing (see above) PT-OP-T Assessment and Plan Start: 10/02/22 10:42 Freq: Status: Active Protocol: Document 11/06/22 10:03 ES (Rec: 11/06/22 10:56 ES [id number]) Physical Therapy Assessment Impairments Impairments Balance,Functional Mobility, Strength,Vestibular Goals Four Impairment Balance confidence Home Management Supervisor Goal (LTG) Patient will score 67% or higher on ABC scale indicating decreased risk for falls (67% is cut-off score for non- fallers). LTG Duration 6 weeks - progressing Three Impairment Balance, functional mobility Alf Goal (LTG) Patient will be able to participate in gardening at ground level with minimal c/o unsteadiness and no LOB. LTG Duration 6 weeks - met Two Impairment Balance Short Term Goal (STG) Patient will be independent with HEP for balance. STG Duration 4 weeks - progressing One Impairment Balance Short Term Goal (STG) Patient will be able to return from bending over without LOB . STG Duration 4 weeks - met Progress Towards Goals Progress Towards Goals Progressing Toward Goals Assessment Summary Assessment Patient demonstrates improvement in balance and strength in all aspects compared to eval. She has increased strength in calves and scored significantly better on 5xSTS, had increased time with tandem stance, and had improved score on Balance Confidence Scale. She is making good progress and functionally is performing all her normal daily activity. She will benefit from transition to independent HEP at this time to continue to work on building functional strength and balance. Physical Therapy Plan Frequency and Duration Frequency of Treatment 1x/Week Duration of treatment (weeks) 6 Plan of Care Start Date 10/02/22 Plan of Care End Date 11/13/22 Therapeutic Interventions Therapeutic Interventions Balance Training,Home Exercise Program,Neuromuscular Re- education,Patient/Caregiver Education,Self-Care/Home Management,Therapeutic Activities,Therapeutic Exercises,Vestibular Rehabilitation Next Visit Focus/Plan Next Note Type Discharge Summary Next Visit Plan Review/modify/progress HEP as needed.
--- NOTE | 2022-11-13 10:53 | PT.OTN ---
Current Diagnoses Other abnormalities of gait and mobility (11/13/22) Weakness (11/13/22) Other malaise (11/13/22) Other fatigue (11/13/22) History of falling (11/13/22) Physical Therapy Treatment Note PT-OP-A Visit Information Start: 10/02/22 10:42 Freq: Status: Active Protocol: Document 11/13/22 10:05 ES (Rec: 11/13/22 10:43 ES [id number]) Out-Patient Physical Therapy Visit Information Visit Information Visit Type Discharge Summary Visit Start Time 10:05 Visit Stop Time 10:37 Total Visit Minutes 32 Visit Number 11/02 Number of PROTOCOL OFFICER Visits 0 PT-OP-B Current Condition Start: 10/02/22 10:42 Freq: Status: Active Protocol: Document 11/13/22 10:05 ES (Rec: 11/13/22 10:46 ES [id number]) Current Condition Current Functional Impairments (Reported) Functional Limitations- Work/School No falls since starting PT. Functional Limitations- Recreation/ Able to garden with raised Hobbies pots. PT-OP-C Subjective Start: 10/02/22 10:42 Freq: Status: Active Protocol: Document 11/13/22 10:05 ES (Rec: 11/13/22 10:43 ES [id number]) OP-PT Subjective Patient Comments Patient Comments Patient concerned about being accountable with her home program without further therapy appt's. Stated she feels like she's made a lot of improvement since starting therapy. Patient Reported Progress Improving PT-OP-D Balance Start: 10/02/22 10:42 Freq: Status: Active Protocol: Document 11/13/22 10:05 ES (Rec: 11/13/22 10:46 ES [id number]) Balance Tests Tandem Tandem Standing 30 sec B Other Other Balance Tests Performed 4-stage balance test = 02/19 PT-OP-E Functional Tests Start: 10/02/22 10:42 Freq: Status: Active Protocol: Document 11/06/22 10:03 ES (Rec: 11/06/22 10:56 ES [id number]) Functional Tests Five Times Sit to Stand Test Score 16.5 seconds PT-OP-M Strength Start: 10/02/22 10:42 Freq: Status: Active Protocol: Document 11/06/22 10:03 ES (Rec: 11/06/22 10:56 ES [id number]) Ankle/Foot Strength Ankle and Foot Manual Muscle Testing Right Plantarflexion (S1) 4 Good Left Plantarflexion (S1) 4 Good PT-OP-O Vestibular Start: 10/02/22 10:42 Freq: Status: Active Protocol: Document 10/09/22 10:28 ES (Rec: 10/09/22 11:39 ES [id number]) Vestibular Assessment Visual Testing Smooth Pursuits Horizontal Normal Smooth Pursuits Vertical Normal Saccades Horizontal Normal Saccades Vertical Undershoot Convergence Test WNL Vestibulo-Ocular Reflex (VOR1) Negative Vestibulo-Ocular Reflex (VOR2) Negative Vestibulo-Ocular Reflex Cancellation Negative PT-OP-Q Treatments Start: 10/02/22 10:42 Freq: Status: Active Protocol: Document 11/13/22 10:05 ES (Rec: 11/13/22 10:43 ES [id number]) Cardio Equipment Recumbent Stepper (Sci-Fit) Duration (Minutes) 8 Resistance 4.0 Seat Position 10 Therapeutic Exercises Other Exercises HEP Other Exercise Name Reviewed and performed entire HEP program with handout provided (see scan) PT-OP-T Assessment and Plan Start: 10/02/22 10:42 Freq: Status: Active Protocol: Document 11/13/22 10:05 ES (Rec: 11/13/22 10:43 ES [id number]) Physical Therapy Assessment Goals Four Impairment Balance confidence Hospital Superintendent Goal (LTG) Patient will score 67% or higher on ABC scale indicating decreased risk for falls (67% is cut-off score for non- fallers). LTG Duration 6 weeks - partially met Three Impairment Balance, functional mobility Hospital Superintendent Goal (LTG) Patient will be able to participate in gardening at ground level with minimal c/o unsteadiness and no LOB. LTG Duration 6 weeks - met Two Impairment Balance Short Term Goal (STG) Patient will be independent with HEP for balance. STG Duration 4 weeks - met One Impairment Balance Short Term Goal (STG) Patient will be able to return from bending over without LOB . STG Duration 4 weeks - met Progress Towards Goals Progress Towards Goals Progressing Toward Goals Assessment Summary Assessment Patient was seen for a total of 6 visits to address balance and falls. She has made excellent progress during the POC, demonstrating increased strength, standing balance, and balance confidence. She is independent with her HEP and appropriate progressions to continue to work on balance and strength. She is appropriate to d/c from skilled PT to independent program at this time. Physical Therapy Plan Discharge Physical Therapy Discharge Comments All but one goal met; anticipate patient will reach this goal outside of PT.
== END 2022-11-14 12:15 | disposition home or self-care (01) ==
LOC: PHYS 10:00
PROVIDERS: Family Provider Nurse Practitioner; PCP Nurse Practitioner; Referring Provider Nurse Practitioner; Visit Provider Nurse Practitioner
DX: R53.81 Other malaise (principal); R53.83 Other fatigue; R26.89 Other abnormalities of gait and mobility; R53.1 Weakness; Z91.81 History of falling
CPT/HCPCS: 97110; 97112; 97161

== ENCOUNTER → 2022-12-18 10:16 | Outpatient (CLI) | payer OTHER, SELFPAY ==
[2022-12-18 11:20] LABS: BUN Creatinine Ratio 21.9 (6-22); Blood Urea Nitrogen 25 mg/dL (7-17); Calcium 9.3 mg/dL (8.4-10.2); Carbon Dioxide 31 mmol/L (22-32); Chloride 99 mmol/L (98-107); Estimated Glomerular Filt Rate 48 mL/min (>60); Glucose 95 mg/dL (80-110); HEMOLYSIS < 15 (0-50); Potassium 4.3 mmol/L (3.4-5.1); Sodium 136 mmol/L (137-145)
== END ==
PROVIDERS: Family Provider Nurse Practitioner; PCP Nurse Practitioner; Referring Provider Internal Medicine Nephrology; Visit Provider Internal Medicine Nephrology
DX: I10 Essential (primary) hypertension (principal)
CPT/HCPCS: 36415; 80048

== ENCOUNTER → 2023-02-07 11:04 | Outpatient (CLI) | payer OTHER, SELFPAY ==
[2023-02-07 12:58] LABS: INR 2.7 (0.9-1.3)
[2023-02-07 13:09] LABS: Cholesterol 194 mg/dL (140-199); HDL Cholesterol 75 mg/dL (40-60); LDL Cholesterol Calculated 93 mg/dL (<100); Triglycerides 131 mg/dL (35-150)
[2023-02-07 13:28] LABS: Free T3, Triiodothyronine Free 3.53 pg/mL (2.77-5.27); Free T4, Direct Thyroxine 1.06 ng/dL (0.78-2.19)
[2023-02-07 13:44] LABS: Thyroid Stimulating Hormone 0.125 uIU/mL (0.47-4.68)
== END ==
PROVIDERS: Family Provider Nurse Practitioner; PCP Nurse Practitioner; Referring Provider Nurse Practitioner; Visit Provider Nurse Practitioner
DX: I48.91 Unspecified atrial fibrillation (principal); I10 Essential (primary) hypertension; E78.5 Hyperlipidemia, unspecified; Z79.899 Other long term (current) drug therapy; Z79.01 Long term (current) use of anticoagulants
CPT/HCPCS: 36415; 80061; 84439; 84443; 84481; 85610

== ENCOUNTER → 2023-03-02 10:57 | Outpatient (CLI) | payer OTHER, SELFPAY ==
[2023-03-02 13:21] LABS: Alanine Aminotransferase 20 IU/L (<35); Albumin 4.3 g/dL (3.5-5.0); Albumin Globulin Ratio 1.7 (1.0-2.8); Alkaline Phosphatase 94 U/L (38-126); Aspartate Aminotransferase 32 IU/L (14-36); BUN Creatinine Ratio 20.2 (6-22); Bilirubin Total 0.6 mg/dL (0.2-1.3); Blood Urea Nitrogen 24 mg/dL (7-17); Calcium 9.6 mg/dL (8.4-10.2); Carbon Dioxide 27 mmol/L (22-32); Chloride 100 mmol/L (98-107); Estimated Glomerular Filt Rate 46 mL/min (>60); Globulin 2.6 g/dL (1.7-4.1); Glucose 93 mg/dL (80-110); HEMOLYSIS < 15 (0-50); Potassium 4.5 mmol/L (3.4-5.1); Sodium 137 mmol/L (137-145); Total Protein 6.9 g/dL (6.3-8.2)
[2023-03-02 13:49] LABS: Prothrombin Time 73.9 SECONDS (10.1-12.7)
[2023-03-02 13:53] LABS: INR 6.3 (0.9-1.3)
== END ==
PROVIDERS: Nurse Practitioner; Family Provider Nurse Practitioner; PCP Nurse Practitioner; Referring Provider Family Medicine; Visit Provider Family Medicine
DX: I48.0 Paroxysmal atrial fibrillation (principal); Z79.899 Other long term (current) drug therapy
CPT/HCPCS: 36415; 80053; 85610

== ENCOUNTER → 2023-03-05 11:10 | Outpatient (CLI) | payer OTHER, SELFPAY ==
--- NOTE | 2023-03-05 11:30 | DI.CT.S_ITS ---
PROCEDURE: CT CHEST HIGH RESOLUTION INDICATIONS: shortness of breath TECHNIQUE: Noncontrast 1.0 and 5.0 mm thick contiguous axial sections from the pulmonary apex to the posterior costophrenic angles, with 7 mm thick coronal and sagittal MIP reformats. 1 mm thick dynamic expiratory images acquired through the upper, mid, and lower lungs. 1.0 mm thick axial sections acquired from the aditya to the posterior costophrenic angles in the prone end-inspiration position. For radiation dose reduction, the following was used: automated exposure control, adjustment of mA and/or kV according to patient size. COMPARISON: None. FINDINGS: Image quality: Excellent. Lungs: Mild reticulation in the medial lower lobes, without bronchiectasis. Additionally, there is mild reticulation of the lung apices, without bronchiectasis. No honeycombing. Diffuse air trapping. Juxtapleural nodules along the right lower lobe with smooth margins, largest measuring 6 x 9 millimeter (series 3, image 173); location and margins favor a benign intrapulmonary lymph node. A few solid pulmonary nodules measuring no greater than 3 millimeters. For instance, the 3 millimeters solid nodule in the posterior right upper lobe (series 8, image 88). Pleura: No pleural effusions or pneumothorax. Mediastinum: Heart size is normal. No pericardial effusion. Thoracic aorta and central pulmonary arteries are normal in size. Esophagus is normal in caliber. Small hiatal hernia. Bones and chest wall: No suspicious bony lesions. No vertebral body compression fractures. Coarse left breast calcification, nonspecific. Abdomen: Visualized upper abdominal solid organs and bowel loops appear normal. IMPRESSION: Diffuse air trapping, which can be seen in the setting of hypersensitivity pneumonitis or small airways disease. A few solid pulmonary nodules, measuring no greater than 3 millimeters. Consider 12 month follow-up if at high risk for developing lung cancer, per Fleischner Society guidelines. Dictated by: Jeff Ac M.D. on 03/05/2023 at 13:36 Approved by: Jeff Ac M.D. on 03/05/2023 at 13:43
[2023-03-05 12:42] LABS: INR 1.9 (0.9-1.3); Prothrombin Time 22.2 SECONDS (10.1-12.7)
== END ==
PROVIDERS: Family Provider Nurse Practitioner; PCP Nurse Practitioner; Referring Provider Family Medicine; Visit Provider Family Medicine
DX: I82.409 Acute embolism and thrombosis of unspecified deep veins of unspecified lower extremity (principal); R06.09 Other forms of dyspnea; R91.8 Other nonspecific abnormal finding of lung field
CPT/HCPCS: 36415; 71250; 85610

== ENCOUNTER → 2023-03-23 12:53 | Outpatient (CLI) | payer OTHER, SELFPAY | PROVIDERS: Family Provider Nurse Practitioner; PCP Nurse Practitioner; Referring Provider Nurse Practitioner; Visit Provider Nurse Practitioner | DX: R06.09 Other forms of dyspnea (principal); Z87.891 Personal history of nicotine dependence; J98.8 Other specified respiratory disorders | CPT/HCPCS: 94060; 94726; 94729 ==

== ENCOUNTER → 2023-04-03 13:11 | Outpatient (CLI) | payer OTHER, SELFPAY ==
[2023-04-03 14:39] LABS: INR 2.6 (0.9-1.3); Prothrombin Time 30.1 SECONDS (10.1-12.7)
== END ==
PROVIDERS: Family Medicine; Family Provider Nurse Practitioner; PCP Nurse Practitioner; Referring Provider Nurse Practitioner; Visit Provider Nurse Practitioner
DX: I82.409 Acute embolism and thrombosis of unspecified deep veins of unspecified lower extremity (principal)
CPT/HCPCS: 36415; 85610

== ENCOUNTER → 2023-04-25 12:42 | Outpatient (CLI) | payer OTHER, SELFPAY ==
--- NOTE | 2023-04-25 12:43 | DI.US.S_ITS ---
PROCEDURE: US EXTREMITY NONVASC LOWER RT INDICATIONS: POSTERIOR KNEE PAIN TECHNIQUE: Real-time scanning was performed of the posterior right, with image documentation. COMPARISON: None. FINDINGS: Ultrasound was performed in the area of posterior right knee. 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 Dictated by: Stuart Ayala M.D. on 04/25/2023 at 20:20 Approved by: Stuart Ayala M.D. on 04/25/2023 at 20:21
== END ==
PROVIDERS: Family Provider Nurse Practitioner; PCP Nurse Practitioner; Referring Provider Nurse Practitioner; Visit Provider Nurse Practitioner
DX: M25.561 Pain in right knee (principal)
CPT/HCPCS: 76882

== ENCOUNTER → 2023-06-28 10:43 | Outpatient (CLI) | payer OTHER, SELFPAY ==
[2023-06-28 11:21] LABS: INR 2.6 (0.9-1.3); Prothrombin Time 30.2 SECONDS (9.4-12.5)
== END ==
PROVIDERS: Family Provider Nurse Practitioner; PCP Nurse Practitioner; Referring Provider Nurse Practitioner; Visit Provider Nurse Practitioner
DX: I48.91 Unspecified atrial fibrillation (principal); Z79.01 Long term (current) use of anticoagulants
CPT/HCPCS: 36415; 85610

== ENCOUNTER → 2023-08-15 12:33 | Outpatient (CLI) | payer OTHER, SELFPAY ==
[2023-08-15 13:14] LABS: INR 3.6 (0.9-1.3); Prothrombin Time 42.2 SECONDS (9.4-12.5)
== END ==
PROVIDERS: Family Provider Nurse Practitioner; PCP Nurse Practitioner; Referring Provider Nurse Practitioner; Visit Provider Nurse Practitioner
DX: I82.409 Acute embolism and thrombosis of unspecified deep veins of unspecified lower extremity (principal)
CPT/HCPCS: 36415; 85610

== ENCOUNTER → 2023-09-04 14:34 | Outpatient (CLI) | payer OTHER, SELFPAY ==
[2023-09-04 16:04] LABS: INR 3.5 (0.9-1.3); Prothrombin Time 41.1 SECONDS (9.4-12.5)
== END ==
PROVIDERS: Family Provider Nurse Practitioner; PCP Nurse Practitioner; Referring Provider Nurse Practitioner; Visit Provider Nurse Practitioner
DX: I82.409 Acute embolism and thrombosis of unspecified deep veins of unspecified lower extremity (principal)
CPT/HCPCS: 36415; 85610

== ENCOUNTER → 2023-10-08 13:36 | Outpatient (CLI) | payer OTHER, SELFPAY ==
--- NOTE | 2023-10-08 13:37 | DI.MG.S_ITS ---
BILATERAL DIGITAL SCREENING MAMMOGRAM 3D/2D WITH CAD: 10/08/2023 CLINICAL: Routine screening. Comparison is made to exams dated: 09/16/2021 mammogram, 09/15/2022 mammogram, and 09/15/2020 mammogram - [facility]. Both breasts are heterogeneously dense, which may obscure small masses (category c / 51-75% glandular tissue). Current study was also evaluated with a Computer Aided Detection (CAD) system. There are benign calcifications in both breasts. There also are biopsy clips in the left breast. No significant masses, calcifications, or other findings are seen in either breast. There has been no significant interval change. IMPRESSION: BENIGN There is no mammographic evidence of malignancy. A 1 year screening mammogram is recommended. Based on the Tyrer Cuzick model (a risk assessment model) the patient's lifetime risk is 1.9% and her 10 year risk is 0.0%. According to the ACR, ACS, and NCCN guidelines, an annual breast MRI exam along with mammogram is recommended if the patient's lifetime risk is 20% or greater. This exam was interpreted at Station ID: [id number]. NOTE: For mammograms, a report in lay terms will be sent to the patient. Approximately 15% of breast malignancies will not be visualized mammographically. In the management of a palpable breast mass, a negative mammogram must not discourage biopsy of a clinically suspicious lesion. Electronically Signed By: Flaco mortensen/apple:10/08/2023 18:42:28 letter sent: Normal Exam ACR BI-RADS Category 2: Benign Finding(s) 3342F
[2023-10-08 15:58] LABS: Prothrombin Time 54.2 SECONDS (9.4-12.5)
[2023-10-08 16:01] LABS: INR 4.6 (0.9-1.3)
== END ==
PROVIDERS: Family Provider Nurse Practitioner; PCP Nurse Practitioner; Referring Provider Nurse Practitioner; Visit Provider Nurse Practitioner
DX: Z12.31 Encounter for screening mammogram for malignant neoplasm of breast (principal); R92.333 Mammographic heterogeneous density, bilateral breasts; I48.91 Unspecified atrial fibrillation; Z79.01 Long term (current) use of anticoagulants
CPT/HCPCS: 36415; 77063; 77067; 85610

== ENCOUNTER → 2023-10-22 07:53 | Outpatient (CLI) | payer OTHER, SELFPAY ==
[2023-10-22 10:29] LABS: INR 2.7 (0.9-1.3); Prothrombin Time 31.8 SECONDS (9.4-12.5)
== END ==
PROVIDERS: Family Provider Nurse Practitioner; PCP Nurse Practitioner; Referring Provider Nurse Practitioner; Visit Provider Nurse Practitioner
DX: Z79.01 Long term (current) use of anticoagulants (principal)
CPT/HCPCS: 36415; 85610

== ENCOUNTER → 2023-11-08 13:41 | Outpatient (CLI) | payer OTHER, SELFPAY ==
[2023-11-08 17:48] LABS: INR 2.5 (0.9-1.3); Prothrombin Time 28.4 SECONDS (9.4-12.5)
== END ==
PROVIDERS: Family Provider Nurse Practitioner; PCP Nurse Practitioner; Referring Provider Nurse Practitioner; Visit Provider Nurse Practitioner
DX: I48.91 Unspecified atrial fibrillation (principal); Z79.01 Long term (current) use of anticoagulants
CPT/HCPCS: 36415; 85610

== ENCOUNTER → 2023-12-31 14:18 | Outpatient (CLI) | payer OTHER, SELFPAY ==
[2023-12-31 15:06] LABS: INR 1.3 (0.9-1.3); Prothrombin Time 15.5 SECONDS (9.4-12.5)
== END ==
PROVIDERS: Family Provider Nurse Practitioner; PCP Nurse Practitioner; Referring Provider Nurse Practitioner; Visit Provider Nurse Practitioner
DX: Z79.01 Long term (current) use of anticoagulants (principal); I48.91 Unspecified atrial fibrillation
CPT/HCPCS: 36415; 85610

== ENCOUNTER → 2024-02-06 14:02 | Outpatient (CLI) | payer OTHER, SELFPAY ==
[2024-02-06 14:52] LABS: Influenza A - CEPHEID Flu A NEGATIVE (NEGATIVE); Influenza B - CEPHEID Flu B NEGATIVE (NEGATIVE); Respiratory Syncytial Virus Negative (Negative)
[2024-02-06 14:58] LABS: COVID-19 CEPHEID 4-PLEX PCR POSITIVE (Negative)
== END ==
PROVIDERS: Family Provider Nurse Practitioner; PCP Nurse Practitioner; Referring Provider Nurse Practitioner Family; Visit Provider Nurse Practitioner Family
DX: R05.1 Acute cough (principal)
CPT/HCPCS: 0241U

== ENCOUNTER 2024-02-21 14:13 | Emergency (ER) | payer OTHER, SELFPAY ==
[2024-02-21] VITALS (15 sets, daily range): BP systolic 157–211; BP diastolic 67–93; PULSE 53–85; RESP 15–25; TEMP 36.4–36.6; O2SAT 93–100; BMI 30.9
--- NOTE | 2024-02-21 14:28 | DI.RAD.S_ITS ---
PROCEDURE: XR CHEST 1V INDICATIONS: chest pain TECHNIQUE: One view of the chest was acquired. COMPARISON: [facility], CR, XR CHEST 1V, 07/19/2022, 10:07. [facility], CR, XR CHEST 1V, 12/18/2021, 15:24. FINDINGS: Surgical changes and devices: None. Lungs and pleura: Lungs are clear. No pleural effusions or pneumothorax. Mediastinum: Mediastinal contours appear normal. Heart size is normal. Bones and chest wall: No suspicious bony lesions. Overlying soft tissues appear unremarkable. IMPRESSION: No acute cardiopulmonary abnormality is seen. Dictated by: Prakash Snow M.D. on 02/21/2024 at 16:04 Approved by: Prakash Snow M.D. on 02/21/2024 at 16:04
--- NOTE | 2024-02-21 14:28 | EKG_ITS ---
[place] [id number] [address] [place] [id number] Test Date: 2024-02-21 Pat Name: Jennie Reyes Department: 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
--- NOTE | 2024-02-21 14:38 | ED_ITS ---
HPI - General Adult General Chief complaint: Weakness Stated complaint: fall t-7, head injury Time Seen by Provider: 02/21/24 14:38 History of Present Illness HPI narrative: Patient is a 83-year-old female history of AFib on warfarin, hypertension, comes into the ED via EMS for evaluation of fall. She states that she has been recovering from COVID and has been feeling weak, she states that prior to arrival she was out shopping ?pushing herself and did feel her legs give out did fall onto her butt and hit the back of her head. Denies any LOC. Was eventually able to stand bear weight ambulate. States she has not checked her INR and ?a long time because she has been too tired and weak since she was diagnosed with COVID. At time of initial evaluation she is just complaining of a dull headache but no other symptoms. Related Data Home Medications Medication Instructions Recorded Confirmed diltiazem HCl 120 mg 120 mg PO BID 08/24/22 05/02/23 capsule,extended release 24 hr chlorthalidone 25 mg tablet 50 mg PO 3XW 12/20/22 05/02/23 fluorouracil 5 % topical cream applic topical 12/20/22 05/02/23 biotin PO 04/04/23 05/02/23 diphenhydramine 25 2 tab PO BEDTIME PRN 04/04/23 05/02/23 mg-acetaminophen 500 mg tablet (Tylenol PM Extra Strength) magnesium oxide 400 mg PO DAILY 04/04/23 05/02/23 lfychmigzhfe-Ei-jxpb-minerals tab PO 04/04/23 05/02/23 Previous Rx's Medication Instructions Recorded flecainide 150 mg tablet 150 mg PO BID #120 tabs 10/10/21 DISABLED PARKING PERMIT #1 ea 11/14/21 Parking Permit... #1 ea 11/14/21 clobetasol 0.05 % topical ointment 1 applic topical QAM AND QPM #30 08/24/22 grams PT/INR Home Machine #1 ea 12/20/22 atorvastatin 20 mg tablet See Rx Instructions .Route 04/09/23 .COMPLEX #90 tabs losartan 50 mg tablet 50 mg PO DAILY #90 tabs 05/29/23 warfarin 3 mg tablet 3 mg PO .COMPLEX #90 tabs 10/22/23 propranolol 10 mg tablet 10 mg PO BID #180 tabs 02/13/24 Allergies Allergy/AdvReac Type Severity Reaction Status Date / Time lisinopril AdvReac Mild Cough Verified 02/06/24 14:00 Review of Systems Review of Systems Narrative: General: Denies fever, chills, weight loss positive weakness, positive head strike HEENT: Denies headache, eye drainage, eye irritation, head trauma, sore throat, voice change Cardiovascular: Denies any chest pain, palpitations, shortness of breath, tachycardia Respiratory: Denies any shortness of breath, cough, wheeze, stridor GI/: Denies any abdominal pain, nausea, vomiting, diarrhea, bright red blood per rectum, melanotic stools, urinary frequency, urinary retention, dysuria, hematuria MSK: Denies any joint pain, muscle pains, swelling Skin: Denies any rashes, lesions, discoloration Neuro: Denies any headache, lightheadedness, dizziness, fainting, weakness Psych: Denies SI/HI Patient History Medical History (Updated 02/21/24 @ 17:25 by Antonio Rose DO) Pneumonitis Intention tremor Sleep apnea Chronic kidney disease, stage 3 (06/2020) Anticoagulation monitoring, INR range 2-3 Warfarin anticoagulation Dysphagia Seasonal allergies Nail brittleness (~10/2019) Squamous cell carcinoma (~04/2017) Sciatica (Unknown) GERD (gastroesophageal reflux disease) (Unknown) Osteopenia after menopause Hyperlipidemia Essential hypertension Atrial fibrillation (01/22/14) Surgical History 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) Hx of breast biopsy (08/2014) Family History Father No problems noted. Mother No problems noted. Social History Smoking Status: Former smoker Tobacco: How many years used: 25 second hand exposure: No alcohol intake: current substance use type: does not use Smoking Status: Former smoker alcohol intake frequency: 0-2 drinks per day Substance Use Type: does not use Exam Narrative Exam Narrative: General: Cooperative, comfortable, well-developed, not in acute distress HEENT: Normocephalic, atraumatic, PERRLA, normal sclera, eyelids normal, Neck: Active full range of motion, atraumatic Chest: Normal to inspection, negative crepitus, no overlying erythema ecchymosis Respiratory: Normal respiratory effort, not in acute respiratory distress, clear to auscultation bilaterally negative cough, wheeze, tachypnea, rhonchi, rales Cardiology: Regular rate rhythm negative gallop, murmur, rubs GI/: Normal to inspection, soft, nonrigid, no tenderness to palpation, exam deferred MSK: Full range of active range of motion of all 4 extremities, atraumatic Skin: No rashes lesions noted Neuro: Alert awake oriented x3, moves all 4 extremities spontaneously, cranial nerves intact, able to answer all questions appropriately follows commands appropriately Psych: Cooperative, negative suicidal or homicidal ideations Initial Vital Signs Initial Vital Signs: Vital Signs Temperature 98 F 02/21/24 14:17 Pulse Rate 85 02/21/24 14:17 Respiratory Rate 18 02/21/24 14:17 Blood Pressure 194/93 H 02/21/24 14:17 Pulse Oximetry 99 02/21/24 14:17 Oxygen Delivery Method Room Air 02/21/24 14:17 Course Orders Ordered: ED Orders 02/21/24 14:28 XR chest 1V Stat EKG-12 Lead Stat 02/21/24 14:50 Complete Blood Count AUTO DIFF Stat Comprehensive Metabolic Panel Stat Lipase Stat Magnesium Stat NT-proBNP (BNP-Adult 18+) Stat PTT Partial Thromboplastin Roman Stat Prothrombin Time INR Stat Troponin & CK Cardiac Panel Stat 02/21/24 14:52 CT cervical spine wo con Stat CT head/brain wo con Stat Vital Signs Vital signs: Vital Signs - 8 hr 02/21/24 14:17 02/21/24 14:43 02/21/24 14:48 Temperature 98 F Pulse Rate 85 73 79 Respiratory Rate 18 22 Blood Pressure 194/93 H Pulse Oximetry 99 100 99 Oxygen Delivery Method Room Air 02/21/24 14:48 02/21/24 14:52 02/21/24 14:52 Temperature Pulse Rate 73 Respiratory Rate 20 Blood Pressure 211/91 H 192/86 H Pulse Oximetry 99 Oxygen Delivery Method 02/21/24 15:08 02/21/24 15:09 02/21/24 15:30 Temperature Pulse Rate 85 59 L Respiratory Rate 15 15 Blood Pressure 168/86 H Pulse Oximetry 99 93 Oxygen Delivery Method 02/21/24 15:30 02/21/24 16:00 02/21/24 16:01 Temperature Pulse Rate 57 L 61 Respiratory Rate 20 25 H Blood Pressure 193/85 H Pulse Oximetry 96 97 Oxygen Delivery Method Room Air 02/21/24 16:01 02/21/24 16:30 02/21/24 16:31 Temperature Pulse Rate 57 L 59 L Respiratory Rate 20 25 H Blood Pressure 190/83 H Pulse Oximetry 96 95 Oxygen Delivery Method Room Air 02/21/24 16:31 02/21/24 17:00 02/21/24 17:00 Temperature Pulse Rate 53 L Respiratory Rate 17 Blood Pressure 163/74 H 182/81 H Pulse Oximetry 96 Oxygen Delivery Method Room Air Medical Decision Making Differential Diagnosis Differential Diagnosis: Intracranial hemorrhage, cervical neck fracture, electrolyte abnormality, Lab Data 02/21/24 14:50 02/21/24 14:50 Labs: Lab Results 02/21/24 Range/Units 14:50 WBC 5.5 (4.5-11.0) X10^3/uL RBC 4.52 (4.0-5.2) X10^6/uL Hgb 14.7 (12.0-16.0) g/dL Hct 43.5 (36-46) % MCV 96.2 (80-100) fL MCH 32.5 (26-34) PG MCHC 33.8 (30-36) % RDW 13.8 (11.6-14.8) % Plt Count 225 (150-400) X10^3/uL Neut % (Auto) 53.1 (50-75) % Lymph % (Auto) 34.8 (25-40) % Weber % (Auto) 10.2 (3-14) % Eos % (Auto) 1.4 L (2-4) % Baso % (Auto) 0.5 (0-2) % Neut # (Auto) 2900 (2304-1727) /uL Lymph # (Auto) 1900 (7073-3390) /uL Weber # (Auto) 600 (0-900) /uL Eos # (Auto) 100 (0-450) /uL Baso # (Auto) 0 (0-100) /uL PT 36.7 H (9.4-12.5) SECONDS INR 3.2 H (0.9-1.3) APTT 49 H (25.1-36.5) SECONDS Sodium 138 (137-145) mmol/L Potassium 4.1 (3.4-5.1) mmol/L Chloride 101 (98-107) mmol/L Carbon Dioxide 27 (22-32) mmol/L BUN 21 H (7-17) mg/dL Creatinine 1.28 H (0.52-1.04) mg/dL Estimated GFR 42 L (>60) mL/min BUN/Creatinine Ratio 16.4 (6-22) Glucose 100 (80-110) mg/dL Calcium 9.6 (8.4-10.2) mg/dL Magnesium 2.2 (1.6-2.3) mg/dL Total Bilirubin 0.6 (0.2-1.3) mg/dL AST 34 (14-36) IU/L ALT 23 (<35) IU/L Alkaline Phosphatase 104 (38-126) U/L Total Creatine Kinase 38 (30-135) U/L Troponin I < 0.012 (0.01-0.034) ng/mL NT-Pro-B Natriuret Pep 925 H (<450) pg/mL Total Protein 7.4 (6.3-8.2) g/dL Albumin 4.4 (3.5-5.0) g/dL Globulin 3.0 (1.7-4.1) g/dL Albumin/Globulin Ratio 1.5 (1.0-2.8) Lipase 108 (23-300) U/L Imaging Data CT scan - head: Radiologist's Impression: PROCEDURE: CT HEAD/BRAIN WO CON INDICATIONS: Trauma TECHNIQUE: Noncontrast 4.5 mm thick angled axial sections acquired from the foramen magnum to the vertex, with coronal and sagittal reformats. For radiation dose reduction, the following was used: automated exposure control, adjustment of mA and/or kV according to patient size. COMPARISON: [facility], CT, CT HEAD/BRAIN WO CON, 12/18/2021, 17:21. FINDINGS: Image quality: Diagnostic. CSF spaces: Basal cisterns are patent. No extra-axial fluid collections. The ventricles are symmetric in size and shape. Brain: No intracranial bleeds or masses. There is cerebral volume loss for age, with resultant ventricular and sulcal prominence. There are periventricular and deep white matter chronic small vessel ischemic changes. There is intracranial internal carotid artery atherosclerosis. Skull and face: Calvarium and visualized facial bones appear intact, without suspicious lesions. Sinuses: Visualized sinuses and mastoids are clear. IMPRESSION: No acute intracranial pathology. CT - cervical spine: Radiologist's Impression: PROCEDURE: CT CERVICAL SPINE WO CON INDICATIONS: trauma TECHNIQUE: Noncontrast 3 mm thick sections acquired from the skull base to the T4 level. Sagittal and coronal reformats were then constructed. For radiation dose reduction, the following was used: automated exposure control, adjustment of mA and/or kV according to patient size. COMPARISON: [facility], CT, CT ANGIO HEAD AND NECK, 07/19/2022, 8:49. FINDINGS: Image quality: Excellent. Bones: No fractures or dislocations. Multilevel degenerative changes of the cervical spine, severe at C5-C6. Grade 1 anterolisthesis of C3 on C4 and C4 on C5 is stable. Diffusely decreased osseous mineralization. Visualized superior ribs are intact. Soft tissues: Prevertebral soft tissues are normal in thickness. No paravertebral hematomas. No apical pneumothoraces. IMPRESSION: No displaced fracture or traumatic subluxation. Chest x-ray: Radiologist's Impression: PROCEDURE: XR CHEST 1V INDICATIONS: chest pain TECHNIQUE: One view of the chest was acquired. COMPARISON: [facility], CR, XR CHEST 1V, 07/19/2022, 10:07. [facility], CR, XR CHEST 1V, 12/18/2021, 15:24. FINDINGS: Surgical changes and devices: None. Lungs and pleura: Lungs are clear. No pleural effusions or pneumothorax. Mediastinum: Mediastinal contours appear normal. Heart size is normal. Bones and chest wall: No suspicious bony lesions. Overlying soft tissues appear unremarkable. IMPRESSION: No acute cardiopulmonary abnormality is seen. ECG Data Attestation: I personally reviewed and interpreted this ECG as follows: Interpretation: EKG interpreted by ED physician sinus bradycardia at 59 QTC [address] changes no STEMI MDM Narrative Medical decision making narrative: Patient is a 83-year-old female history of AFib on warfarin hypertension brought in after fall with head strike. States that she has been recovering from COVID and has been weak and felt like she pushed herself today she went out to go grocery shopping. Denies LOC. lab work imaging without any acute findings, patient with slightly elevated INR at 3.2, she has not actively bleeding, therefore will not need adjustment or administration of vitamin K. instructed follow up with her PCP who prescribes this for adjustment. Patient safe for discharge home with outpatient follow up Discharge Plan Departure Patient Disposition: Home Clinical Impression: Closed head injury, Elevated INR Activity Restrictions/Additional Instructions: Please follow-up with your primary care doctor for adjustment of your warfarin Please read the discharge instructions sheet carefully and bring all papers to all doctor follow-up visits, as it may contain information that your doctor may want to see. Disease processes change and evolve, if your symptoms worsen or if you develop any new symptoms that are concerning to you please return for evaluation. Your evaluation today does not show any evidence of any life- threatening/serious illnesses requiring admission to the hospital or surgery. Please follow-up with your doctor for re-evaluation in approximately 1 day. Seek immediate medical attention for any worrisome symptoms. Prescriptions: No Action flecainide 150 mg tablet 150 mg PO BID Qty: 120 1RF (DME) DISABLED PARKING PERMIT See Rx Instructions .ROUTE .MEDSUPPLY Qty: 1 0RF Rx Instructions: I find this patient to be medically disabled and qualified for disabled parking as indicated, and signed, on the accompanying Disabled Parking Application for Individuals. atorvastatin 20 mg tablet See Rx Instructions .ROUTE .COMPLEX Qty: 90 3RF Dose Instruction: Take 1 tablet (20 mg) by mouth at bedtime Rx Instructions: Take 1 tablet (20 mg) by mouth at bedtime losartan 50 mg tablet 50 mg PO DAILY Qty: 90 3RF warfarin 3 mg tablet 3 mg PO .COMPLEX Qty: 90 3RF Rx Instructions: 3 mg orally every day or as directed propranolol 10 mg tablet 10 mg PO BID Qty: 180 4RF (DME) Parking Permit... See Rx Instructions .Route .MEDSUPPLY Qty: 1 0RF Rx Instructions: As directed diltiazem HCl 120 mg capsule,extended release 24hr 120 mg PO BID fluorouracil 5 % cream topical chlorthalidone 25 mg tablet 50 mg PO 3XW (DME) PT/INR Home Machine See Rx Instructions .Route .MEDSUPPLY Qty: 1 0RF Rx Instructions: Check PT/INR per protocol, for afib clobetasol 0.05 % ointment 1 applic topical QAM AND QPM Qty: 30 3RF Rx Instructions: Apply AM and PM x 2 weeks then PM daily. biotin PO diphenhydramine-acetaminophen [Tylenol PM Extra Strength] 25-500 mg tablet 2 tab PO BEDTIME PRN magnesium oxide 400 mg magnesium tablet 400 mg PO DAILY boagbdclyrau-Ri-ribk-minerals Tablet PO Referrals: Yasmine Moss ARNP [Primary Care Provider] - Stand Alone Forms: Patient Portal/API
--- NOTE | 2024-02-21 14:52 | DI.CT.S_ITS ---
PROCEDURE: CT CERVICAL SPINE WO CON INDICATIONS: trauma TECHNIQUE: Noncontrast 3 mm thick sections acquired from the skull base to the T4 level. Sagittal and coronal reformats were then constructed. For radiation dose reduction, the following was used: automated exposure control, adjustment of mA and/or kV according to patient size. COMPARISON: [facility], CT, CT ANGIO HEAD AND NECK, 07/19/2022, 8:49. FINDINGS: Image quality: Excellent. Bones: No fractures or dislocations. Multilevel degenerative changes of the cervical spine, severe at C5-C6. Grade 1 anterolisthesis of C3 on C4 and C4 on C5 is stable. Diffusely decreased osseous mineralization. Visualized superior ribs are intact. Soft tissues: Prevertebral soft tissues are normal in thickness. No paravertebral hematomas. No apical pneumothoraces. IMPRESSION: No displaced fracture or traumatic subluxation. Dictated by: Prakash Snow M.D. on 02/21/2024 at 16:06 Approved by: Prakash Sonw M.D. on 02/21/2024 at 16:08
--- NOTE | 2024-02-21 14:52 | DI.CT.S_ITS ---
PROCEDURE: CT HEAD/BRAIN WO CON INDICATIONS: Trauma TECHNIQUE: Noncontrast 4.5 mm thick angled axial sections acquired from the foramen magnum to the vertex, with coronal and sagittal reformats. For radiation dose reduction, the following was used: automated exposure control, adjustment of mA and/or kV according to patient size. COMPARISON: [facility], CT, CT HEAD/BRAIN WO CON, 12/18/2021, 17:21. FINDINGS: Image quality: Diagnostic. CSF spaces: Basal cisterns are patent. No extra-axial fluid collections. The ventricles are symmetric in size and shape. Brain: No intracranial bleeds or masses. There is cerebral volume loss for age, with resultant ventricular and sulcal prominence. There are periventricular and deep white matter chronic small vessel ischemic changes. There is intracranial internal carotid artery atherosclerosis. Skull and face: Calvarium and visualized facial bones appear intact, without suspicious lesions. Sinuses: Visualized sinuses and mastoids are clear. IMPRESSION: No acute intracranial pathology. Dictated by: Prakash Snow M.D. on 02/21/2024 at 16:05 Approved by: Prakash Snow M.D. on 02/21/2024 at 16:06
[2024-02-21 15:00] LABS: Add Manual Diff / Slide Review NO; Basophils Absolute Auto 0 /uL (0-100); Basophils Percent Auto 0.5 % (0-2); Eosinophils Absolute Auto 100 /uL (0-450); Eosinophils Percent Auto 1.4 % (2-4); Hematocrit 43.5 % (36-46); Hemoglobin 14.7 g/dL (12.0-16.0); Lymphocytes Absolute Auto 1900 /uL (1100-4500); Lymphocytes Percent Auto 34.8 % (25-40); Mean Corpuscular HGB Conc 33.8 % (30-36); Mean Corpuscular Hemoglobin 32.5 PG (26-34); Mean Corpuscular Volume 96.2 fL (80-100); Monocytes Absolute Auto 600 /uL (0-900); Monocytes Percent Auto 10.2 % (3-14); Neutrophils Absolute Auto 2900 /uL (1500-7000); Neutrophils Percent Auto 53.1 % (50-75); Platelet Count 225 X10^3/uL (150-400); Red Blood Cell Count 4.52 X10^6/uL (4.0-5.2); Red Cell Distribution Width 13.8 % (11.6-14.8); White Blood Cell Count 5.5 X10^3/uL (4.5-11.0)
[2024-02-21 15:08] LABS: INR 3.2 (0.9-1.3); Prothrombin Time 36.7 SECONDS (9.4-12.5)
[2024-02-21 15:11] LABS: PTT Partial Thromboplastin Tim 49 SECONDS (25.1-36.5)
[2024-02-21 15:12] LABS: Alanine Aminotransferase 23 IU/L (<35); Albumin 4.4 g/dL (3.5-5.0); Albumin Globulin Ratio 1.5 (1.0-2.8); Alkaline Phosphatase 104 U/L (38-126); Aspartate Aminotransferase 34 IU/L (14-36); BUN Creatinine Ratio 16.4 (6-22); Bilirubin Total 0.6 mg/dL (0.2-1.3); Blood Urea Nitrogen 21 mg/dL (7-17); Calcium 9.6 mg/dL (8.4-10.2); Carbon Dioxide 27 mmol/L (22-32); Chloride 101 mmol/L (98-107); Creatine Kinase 38 U/L (30-135); Estimated Glomerular Filt Rate 42 mL/min (>60); Glucose 100 mg/dL (80-110); HEMOLYSIS < 15 (0-50); Lipase 108 U/L (23-300); Magnesium 2.2 mg/dL (1.6-2.3); Potassium 4.1 mmol/L (3.4-5.1); Sodium 138 mmol/L (137-145); Total Protein 7.4 g/dL (6.3-8.2)
[2024-02-21 15:24] LABS: NT-proBNP (BNP-Adult 18+) 925 pg/mL (<450); Troponin I < 0.012 ng/mL (0.01-0.034)
== END 2024-02-21 17:57 | disposition home or self-care (01) ==
PROVIDERS: Emergency Provider Student in an Organized Health Care Education/Training Program; Family Provider Nurse Practitioner; PCP Nurse Practitioner
DX: S09.90XA Unspecified injury of head, initial encounter (principal); R07.9 Chest pain, unspecified; R00.1 Bradycardia, unspecified; R79.1 Abnormal coagulation profile; I44.0 Atrioventricular block, first degree; W18.30XA Fall on same level, unspecified, initial encounter; I48.91 Unspecified atrial fibrillation; Z79.01 Long term (current) use of anticoagulants; I10 Essential (primary) hypertension
CPT/HCPCS: 36415; 70450; 71045; 72125; 80053; 82550; 83690; 83735; 83880; 84484; 85025; 85610; 85730; 93005; 99283; 99284

== ENCOUNTER → 2024-03-03 12:53 | Outpatient (CLI) | payer OTHER, SELFPAY ==
--- NOTE | 2024-03-03 12:55 | DI.CT.S_ITS ---
PROCEDURE: CT CHEST WO CON INDICATIONS: FU pulm nodules TECHNIQUE: Noncontrast 5 mm thick sections acquired from the pulmonary apices to the posterior costophrenic angles. 1 mm lung window, 5 mm thick coronal and sagittal and 7 mm axial MIP reformats were then acquired. For radiation dose reduction, the following was used: automated exposure control, adjustment of mA and/or kV according to patient size. COMPARISON: [facility], CT, CT CHEST HIGH RESOLUTION, 03/05/2023, 11:17. [facility], CR, XR CHEST 1V, 02/21/2024, 14:27. FINDINGS: Image quality: Diagnostic. Lower Neck: No enlarged lymph nodes. Thyroid: No thyroid nodules which require sonographic follow up, per consensus guidelines. Axillae: No enlarged lymph nodes. Chest Wall: Unremarkable. Bones: Unremarkable. Lungs and Pleura: No pneumothorax or pleural effusions. A few bilateral scattered tiny calcified and noncalcified pleural nodules appear stable and are considered benign. Mild peripheral atelectasis or scarring in the posterior lung bases. Juxtapleural nodules are again seen at the posterior medial right lung base that appear unchanged and are considered benign. No suspicious new or enlarging pulmonary nodule. No acute consolidation. Heart: Heart size is normal. No pericardial effusion. Mild aortic and coronary artery calcifications. Thoracic Vessels: The aorta and pulmonary arteries demonstrate normal size. Mediastinum and Shira: No enlarged lymph nodes. Esophagus: No wall thickening. Small hiatal hernia. Upper Abdomen: Coarse calcifications in the liver and spleen are likely secondary to remote prior granulomatous disease. Visualized upper abdomen solid organs and bowel loops appear normal. IMPRESSION: Stable appearance of small bilateral pulmonary nodules, which are considered benign. No suspicious new or enlarging pulmonary nodule. Approved by: Joey Shen M.D. on 03/03/2024 at 17:34
[2024-03-03 13:52] LABS: INR 4.1 (0.9-1.3); Prothrombin Time 47.6 SECONDS (9.4-12.5)
== END ==
LOC: CT 12:54
PROVIDERS: Family Provider Nurse Practitioner; PCP Family Medicine; Referring Provider Family Medicine; Visit Provider Family Medicine
DX: I70.0 Atherosclerosis of aorta (principal); R91.8 Other nonspecific abnormal finding of lung field; R06.09 Other forms of dyspnea; I48.91 Unspecified atrial fibrillation; I25.10 Atherosclerotic heart disease of native coronary artery without angina pectoris; K44.9 Diaphragmatic hernia without obstruction or gangrene; D73.89 Other diseases of spleen; K76.9 Liver disease, unspecified; Z79.01 Long term (current) use of anticoagulants
CPT/HCPCS: 36415; 71250; 85610

== ENCOUNTER → 2024-03-11 10:55 | Outpatient (CLI) | payer OTHER, SELFPAY ==
[2024-03-11 12:51] LABS: INR 2.3 (0.9-1.3); Prothrombin Time 26.1 SECONDS (9.4-12.5)
== END ==
PROVIDERS: Family Provider Nurse Practitioner; PCP Family Medicine; Referring Provider Family Medicine; Visit Provider Family Medicine
DX: R79.1 Abnormal coagulation profile (principal); Z79.01 Long term (current) use of anticoagulants; I48.91 Unspecified atrial fibrillation
CPT/HCPCS: 36415; 85610

== ENCOUNTER → 2024-03-25 13:34 | Outpatient (ROUT) | payer OTHER, SELFPAY | PROVIDERS: Family Provider Nurse Practitioner; PCP Family Medicine; Visit Provider Dermatology | DX: T81.89XA Other complications of procedures, not elsewhere classified, initial encounter (principal) | CPT/HCPCS: 87070; 87075; 87077; 87147; 87186; 87205 ==

== ENCOUNTER → 2024-03-28 10:43 | Outpatient (CLI) | payer OTHER, SELFPAY ==
[2024-03-28 12:05] LABS: INR 2.4 (0.9-1.3); Prothrombin Time 26.1 SECONDS (9.4-12.5)
== END ==
PROVIDERS: Family Provider Nurse Practitioner; PCP Family Medicine; Referring Provider Family Medicine; Visit Provider Family Medicine
DX: I48.91 Unspecified atrial fibrillation (principal); Z79.01 Long term (current) use of anticoagulants
CPT/HCPCS: 36415; 85610

== ENCOUNTER → 2024-05-03 09:41 | Outpatient (CLI) | payer OTHER, SELFPAY ==
[2024-05-03 11:32] LABS: INR 3.2 (0.9-1.3); Prothrombin Time 34.8 SECONDS (9.4-12.5)
== END ==
PROVIDERS: Family Provider Nurse Practitioner; PCP Family Medicine; Referring Provider Family Medicine; Visit Provider Family Medicine
DX: I48.91 Unspecified atrial fibrillation (principal); Z79.01 Long term (current) use of anticoagulants
CPT/HCPCS: 36415; 85610

== ENCOUNTER → 2024-05-19 12:42 | Outpatient (CLI) | payer OTHER, SELFPAY ==
[2024-05-19 14:07] LABS: Prothrombin Time 21.9 SECONDS (9.4-12.5)
== END ==
PROVIDERS: Family Provider Nurse Practitioner; PCP Family Medicine; Referring Provider Family Medicine; Visit Provider Family Medicine
DX: I48.91 Unspecified atrial fibrillation (principal); Z79.01 Long term (current) use of anticoagulants
CPT/HCPCS: 36415; 85610

== ENCOUNTER → 2024-07-03 15:24 | Outpatient (CLI) | payer OTHER, SELFPAY ==
[2024-07-03 16:36] LABS: INR 1.5 (0.9-1.3); Prothrombin Time 17.1 SECONDS (9.4-12.5)
== END ==
PROVIDERS: Family Provider Nurse Practitioner; PCP Family Medicine; Referring Provider Family Medicine; Visit Provider Family Medicine
DX: I48.91 Unspecified atrial fibrillation (principal); Z79.01 Long term (current) use of anticoagulants
CPT/HCPCS: 36415; 85610

== ENCOUNTER → 2024-07-12 10:17 | Outpatient (CLI) | payer OTHER, SELFPAY ==
[2024-07-12 12:48] LABS: INR 2.2 (0.9-1.3); Prothrombin Time 24.3 SECONDS (9.4-12.5)
== END ==
LOC: LAB 10:18
PROVIDERS: Family Provider Nurse Practitioner; PCP Family Medicine; Referring Provider Family Medicine; Visit Provider Family Medicine
DX: I48.91 Unspecified atrial fibrillation (principal); Z79.01 Long term (current) use of anticoagulants
CPT/HCPCS: 36415; 85610

== ENCOUNTER → 2024-07-26 11:29 | Outpatient (CLI) | payer OTHER, SELFPAY ==
[2024-07-26 13:32] LABS: INR 1.8 (0.9-1.3); Prothrombin Time 20.5 SECONDS (9.4-12.5)
== END ==
PROVIDERS: Family Provider Nurse Practitioner; PCP Family Medicine; Referring Provider Family Medicine; Visit Provider Family Medicine
DX: I48.91 Unspecified atrial fibrillation (principal); Z79.01 Long term (current) use of anticoagulants
CPT/HCPCS: 36415; 85610

== ENCOUNTER → 2024-08-13 10:26 | Outpatient (CLI) | payer OTHER, SELFPAY ==
[2024-08-13 11:26] LABS: INR 2.5 (0.9-1.3); Prothrombin Time 28.2 SECONDS (9.4-12.5)
== END ==
LOC: LAB 10:28
PROVIDERS: Family Provider Nurse Practitioner; PCP Family Medicine; Referring Provider Family Medicine; Visit Provider Family Medicine
DX: I48.91 Unspecified atrial fibrillation (principal); Z79.01 Long term (current) use of anticoagulants
CPT/HCPCS: 36415; 85610

== ENCOUNTER → 2024-09-12 13:37 | Outpatient (CLI) | payer OTHER, SELFPAY ==
[2024-09-12 14:42] LABS: Alanine Aminotransferase 27 IU/L (<35); Albumin 4.3 g/dL (3.5-5.0); Albumin Globulin Ratio 1.8 (1.0-2.8); Alkaline Phosphatase 120 U/L (38-126); Aspartate Aminotransferase 35 IU/L (14-36); BUN Creatinine Ratio 24.8 (6-22); Bilirubin Total 0.7 mg/dL (0.2-1.3); Blood Urea Nitrogen 29 mg/dL (7-17); Calcium 9.6 mg/dL (8.4-10.2); Carbon Dioxide 28 mmol/L (22-32); Chloride 100 mmol/L (98-107); Estimated Glomerular Filt Rate 47 mL/min (>60); Globulin 2.4 g/dL (1.7-4.1); Glucose 125 mg/dL (70-99); HEMOLYSIS < 15 (0-50); Potassium 3.8 mmol/L (3.4-5.1); Sodium 136 mmol/L (137-145); Total Protein 6.7 g/dL (6.3-8.2)
== END ==
LOC: LAB 13:40
PROVIDERS: Family Provider Nurse Practitioner; PCP Family Medicine; Referring Provider Nurse Practitioner; Visit Provider Nurse Practitioner
DX: Z51.81 Encounter for therapeutic drug level monitoring (principal); I48.0 Paroxysmal atrial fibrillation; Z79.899 Other long term (current) drug therapy
CPT/HCPCS: 36415; 80053

== ENCOUNTER → 2024-09-19 14:21 | Outpatient (CLI) | payer OTHER, SELFPAY ==
[2024-09-19 15:27] LABS: Prothrombin Time 21.9 SECONDS (9.4-12.5)
== END ==
PROVIDERS: Family Provider Nurse Practitioner; PCP Family Medicine; Referring Provider Family Medicine; Visit Provider Family Medicine
DX: Z79.01 Long term (current) use of anticoagulants (principal); I48.91 Unspecified atrial fibrillation
CPT/HCPCS: 36415; 85610

== ENCOUNTER 2024-11-02 11:21 | Emergency (ER) | payer OTHER, SELFPAY ==
[2024-11-02] VITALS (19 sets, daily range): BP systolic 106–178; BP diastolic 55–98; PULSE 50–288; RESP 16–26; TEMP 36.4; O2SAT 94–100; BMI 30.7
--- NOTE | 2024-11-02 11:32 | DI.RAD.S_ITS ---
1PROCEDURE: XR CHEST 1V INDICATIONS: Chest Pain TECHNIQUE: One view of the chest was acquired. COMPARISON: [facility], CR, XR CHEST 1V, 02/21/2024, 14:27. [facility], CR, XR CHEST 1V, 07/19/2022, 10:07. FINDINGS AND IMPRESSION: No dense airspace disease or pleural effusion on this single view study. Normal heart size. Aortic calcifications. Degenerative osseous changes. Dictated by: Fabian Cervantes M.D. on 11/02/2024 at 11:54 Approved by: Fabian Cervantes M.D. on 11/02/2024 at 11:54
--- NOTE | 2024-11-02 11:53 | EKG_ITS ---
[address] [address] Test Date: 2024-11-02 Pat Name: Jennie Reyes Department: [facility] Room: Gender: Female Oracle Technical Architect: ELIZABETH : 1940 Requested By: Order Number: [id number] Reading MD: Vladislav Ceja MD Measurements Intervals [place] Rate: 85 P: TN: QRS: 12 QRSD: 154 T: -39 QT: 458 QTc: 545 Interpretive Statements Undetermined rhythm Nonspecific intraventricular block Minimal voltage criteria for LVH, may be normal variant ( John product ) NO SIGNIFICANT CHANGE FROM PRIOR TRACING Electronically Signed On 11-03-2024 7:46:16 PDT by Vladislav Ceja MD
[2024-11-02 12:01] LABS: Add Manual Diff / Slide Review NO; Basophils Absolute Auto 0 /uL (0-100); Basophils Percent Auto 0.4 % (0-2); Eosinophils Absolute Auto 0 /uL (0-450); Eosinophils Percent Auto 0.3 % (2-4); Hematocrit 46.6 % (36-46); Hemoglobin 15.9 g/dL (12.0-16.0); Lymphocytes Absolute Auto 1400 /uL (1100-4500); Lymphocytes Percent Auto 17.6 % (25-40); Mean Corpuscular HGB Conc 34.1 % (30-36); Mean Corpuscular Hemoglobin 33.6 PG (26-34); Mean Corpuscular Volume 98.5 fL (80-100); Monocytes Absolute Auto 700 /uL (0-900); Monocytes Percent Auto 8.4 % (3-14); Neutrophils Absolute Auto 5800 /uL (1500-7000); Neutrophils Percent Auto 73.3 % (50-75); Platelet Count 184 X10^3/uL (150-400); Red Blood Cell Count 4.73 X10^6/uL (4.0-5.2); Red Cell Distribution Width 14.3 % (11.6-14.8); White Blood Cell Count 7.9 X10^3/uL (4.5-11.0)
[2024-11-02 12:05] LABS: INR 1.3 (0.9-1.3)
[2024-11-02 12:08] LABS: PTT Partial Thromboplastin Tim 36 SECONDS (25.1-36.5)
[2024-11-02 12:12] LABS: Alanine Aminotransferase 47 IU/L (<35); Albumin 4.6 g/dL (3.5-5.0); Albumin Globulin Ratio 1.5 (1.0-2.8); Alkaline Phosphatase 91 U/L (38-126); Aspartate Aminotransferase 46 IU/L (14-36); BUN Creatinine Ratio 16.8 (6-22); Bilirubin Total 0.7 mg/dL (0.2-1.3); Blood Urea Nitrogen 22 mg/dL (7-17); Calcium 9.9 mg/dL (8.4-10.2); Carbon Dioxide 27 mmol/L (22-32); Chloride 99 mmol/L (98-107); Creatine Kinase 31 U/L (30-135); Estimated Glomerular Filt Rate 40 mL/min (>60); Globulin 3.1 g/dL (1.7-4.1); Glucose 118 mg/dL (70-99); HEMOLYSIS < 15 (0-50); Lipase 110 U/L (23-300); Magnesium 2.1 mg/dL (1.6-2.3); Potassium 3.9 mmol/L (3.4-5.1); Sodium 139 mmol/L (137-145); Total Protein 7.7 g/dL (6.3-8.2)
[2024-11-02 12:21] LABS: NT-proBNP (BNP-Adult 18+) 1050 pg/mL (<450); Troponin I < 0.012 ng/mL (0.01-0.034)
--- NOTE | 2024-11-02 14:02 | EKG_ITS ---
[address] [address] Test Date: 2024-11-02 Pat Name: Jennie Reyes Department: [facility] Room: Gender: Female Locomotive Inspector: MANSI : 1940 Requested By: Order Number: [id number] Reading MD: Vladislav Ceja MD Measurements Intervals [place] Rate: 44 P: 119 MA: 266 QRS: 1 QRSD: 130 T: 50 QT: 524 QTc: 448 Interpretive Statements Critical Test Result: Arrhythmia Marked sinus bradycardia with 1st degree AV block with premature supraventricular complexes Nonspecific intraventricular block Minimal voltage criteria for LVH, may be normal variant ( John product ) More 2+ sec pauses Electronically Signed On 11-03-2024 11:51:00 PDT by Vladislav Ceja MD
--- NOTE | 2024-11-02 14:02 | EKG_ITS ---
[address] [address] Test Date: 2024-11-02 Pat Name: Jennie Reyes Department: [facility] Room: Gender: Female Dental Scheduling Coordinator: MANSI : 1940 Requested By: Order Number: [id number] Reading MD: Vladislav Ceja MD Measurements Intervals [place] Rate: 49 P: 88 AK: 260 QRS: 0 QRSD: 130 T: 78 QT: 514 QTc: 464 Interpretive Statements Sinus bradycardia with 1st degree AV block with premature atrial complexes Nonspecific intraventricular block Minimal voltage criteria for LVH, may be normal variant ( [place] product ) Pause of approx 2.4 sec Electronically Signed On 11-03-2024 7:45:27 PDT by Vladislav Ceja MD
--- NOTE | 2024-11-02 14:17 | PC.NURSE ---
Telemetry noted to have frequent pauses in rhythm, and HR dropped to 30's-40's at times. Repeat ECG requested and completed. Patient reports dizziness and was noted to feel this dizziness at time of pauses. ECG reviewed with MD, bradycardia, 1st degree AV block with sinus pauses seen. No other ectopy seen. Patient remains of telemetry. Denies any chest pain. Denies SOB.
--- NOTE | 2024-11-02 15:12 | ED.DIZZY ---
HPI - Dizziness General Chief Complaint: Dizziness Stated Complaint: derm, face rash Time Seen by Provider: 11/02/24 14:53 Source: patient Mode of arrival: Wheelchair History of Present Illness HPI Narrative: 84-year-old female history of atrial fibrillation on flecainide, diltiazem, Eliquis, essential tremor takes propranolol, hypertension, here with 3 days of feeling ?odd. ? patient reports throughout the day she has sensations of feeling unwell and lightheaded. No vertigo. No chest pain or dyspnea. The symptoms come and go. No prior history of the same. No recent changes in her medications. She follows with Cardiology, [facility]. Denies recent infectious symptoms such as cough congestion sore throat, vomiting or diarrhea. She has otherwise been well. Related Data Home Medications ?Medication ?Instructions ?Recorded ?Confirmed diltiazem HCl 120 mg 120 mg PO BID 08/24/22 09/24/24 capsule,extended release 24 hr fluorouracil 5 % topical cream applic topical 12/20/22 09/24/24 biotin PO 04/04/23 09/24/24 diphenhydramine 25 2 tab PO BEDTIME PRN 04/04/23 09/24/24 mg-acetaminophen 500 mg tablet (Tylenol PM Extra Strength) magnesium oxide 400 mg PO DAILY 04/04/23 05/02/23 uitftfvvddmc-Pa-bwqq-minerals tab PO 04/04/23 09/24/24 Previous Rx's ?Medication ?Instructions ?Recorded flecainide 150 mg tablet 150 mg PO BID #120 tabs 10/10/21 DISABLED PARKING PERMIT #1 ea 11/14/21 Parking Permit... #1 ea 11/14/21 losartan 50 mg tablet 50 mg PO DAILY #90 tabs 05/30/24 propranolol 10 mg tablet 10 mg PO TID #270 tabs 05/30/24 chlorthalidone 25 mg tablet 25 mg PO Q OTHER DAY #45 tabs 06/12/24 atorvastatin 20 mg tablet 20 mg PO QPM #90 tabs 10/20/24 Allergies Allergy/AdvReac Type Severity Reaction Status Date / Time No Known Drug Allergies Allergy Verified 11/02/24 11:25 Review of Systems Review of Systems Narrative: Pertinent ROS obtained and negative except as stated in HPI Patient History Medical History (Updated 11/04/24 @ 10:57 by Madiha Zacarias MD) Pneumonitis Intention tremor Sleep apnea Chronic kidney disease, stage 3 (06/2020) Anticoagulation monitoring, INR range 2-3 Warfarin anticoagulation Dysphagia Seasonal allergies Nail brittleness (~10/2019) Squamous cell carcinoma (~04/2017) Sciatica (Unknown) GERD (gastroesophageal reflux disease) (Unknown) Osteopenia after menopause Hyperlipidemia Essential hypertension Atrial fibrillation (01/22/14) Surgical History 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) Hx of breast biopsy (08/2014) Family History Father No problems noted. Mother No problems noted. Social History Smoking Status: Former smoker Tobacco: How many years used: 25 second hand exposure: No alcohol intake: current substance use type: does not use Smoking Status: Former smoker alcohol intake frequency: 0-2 drinks per day Exam Initial Vital Signs Initial Vital Signs: Vital Signs Temperature 97.6 F 11/02/24 11:25 Pulse Rate 70 11/02/24 11:25 Respiratory Rate 18 11/02/24 11:25 Blood Pressure 146/65 H 11/02/24 11:25 Pulse Oximetry 100 11/02/24 11:25 Oxygen Delivery Method Room Air 11/02/24 11:25 Constitutional: Well appearing, no acute distress Head: NCAT Cardiovascular: Bradycardia, no murmur or rub Pulmonary: CTA bilaterally, no respiratory distress Abdominal: soft, non-tender Extremities: No LE edema Skin: warm and dry, no diaphoresis Neurological: Alert and oriented x3 Course Orders Ordered: Discontinued Medications Aspirin (Aspirin 81 Mg Chew Tab) 324 mg PO NOW ONE Stop: 11/02/24 11:33 Last Admin: 11/02/24 12:25 Dose: Not Given Documented By: MARILYN Magnesium Sulfate (Magnesium Sulfate) 2 gm in 50 mls @ 150 mls/hr IV NOW ONE Stop: 11/02/24 19:27 Last Infusion: 11/02/24 19:55 Dose: Infused Documented By: MARILYN Co-signed By: CARLOTTA Admin: 11/02/24 19:32 Dose: 150 mls/hr Documented By: MARILYN Co-signed By: CARLOTTA Vital Signs Vital signs: Vital Signs - 8 hr 11/02/24 11:25 11/02/24 11:41 11/02/24 12:02 Temperature 97.6 F Pulse Rate 70 78 80 Respiratory Rate 18 22 20 Blood Pressure 146/65 H 144/98 H 142/66 H Pulse Oximetry 100 100 94 Oxygen Delivery Method Room Air 11/02/24 12:30 11/02/24 13:00 11/02/24 13:30 Temperature Pulse Rate 80 88 50 L Respiratory Rate 24 20 20 Blood Pressure 128/59 L 119/63 159/70 H Pulse Oximetry 98 95 95 Oxygen Delivery Method Room Air 11/02/24 14:01 Temperature Pulse Rate 53 L Respiratory Rate 16 Blood Pressure 137/65 Pulse Oximetry 97 Oxygen Delivery Method Room Air MDM - Dizziness Lab Data 11/02/24 11:48 11/02/24 11:48 Labs: Lab Results 11/02/24 Range/Units 11:48 WBC 7.9 (4.5-11.0) X10^3/uL RBC 4.73 (4.0-5.2) X10^6/uL Hgb 15.9 (12.0-16.0) g/dL Hct 46.6 H (36-46) % MCV 98.5 (80-100) fL MCH 33.6 (26-34) PG MCHC 34.1 (30-36) % RDW 14.3 (11.6-14.8) % Plt Count 184 (150-400) X10^3/uL Neut % (Auto) 73.3 (50-75) % Lymph % (Auto) 17.6 L (25-40) % [place] % (Auto) 8.4 (3-14) % Eos % (Auto) 0.3 L (2-4) % Baso % (Auto) 0.4 (0-2) % Neut # (Auto) 5800 (9883-5901) /uL Lymph # (Auto) 1400 (2653-5345) /uL [place] # (Auto) 700 (0-900) /uL Eos # (Auto) 0 (0-450) /uL Baso # (Auto) 0 (0-100) /uL PT 15.0 H (9.4-12.5) SECONDS INR 1.3 (0.9-1.3) APTT 36 (25.1-36.5) SECONDS Sodium 139 (137-145) mmol/L Potassium 3.9 (3.4-5.1) mmol/L Chloride 99 (98-107) mmol/L Carbon Dioxide 27 (22-32) mmol/L BUN 22 H (7-17) mg/dL Creatinine 1.31 H (0.52-1.04) mg/dL Estimated GFR 40 L (>60) mL/min BUN/Creatinine Ratio 16.8 (6-22) Glucose 118 H (70-99) mg/dL Calcium 9.9 (8.4-10.2) mg/dL Magnesium 2.1 (1.6-2.3) mg/dL Total Bilirubin 0.7 (0.2-1.3) mg/dL AST 46 H (14-36) IU/L ALT 47 H (<35) IU/L Alkaline Phosphatase 91 (38-126) U/L Total Creatine Kinase 31 (30-135) U/L Troponin I < 0.012 (0.01-0.034) ng/mL NT-Pro-B Natriuret Pep 1050 H (<450) pg/mL Total Protein 7.7 (6.3-8.2) g/dL Albumin 4.6 (3.5-5.0) g/dL Globulin 3.1 (1.7-4.1) g/dL Albumin/Globulin Ratio 1.5 (1.0-2.8) Lipase 110 (23-300) U/L MDM Narrative Medical decision making narrative: In brief, this is an 84-year-old female with history of atrial fibrillation falls with [facility], here with feeling lightheaded and woozy over the last 3 days off and on. On arrival to the emergency department, the patient is in no acute distress. She is noted to be bradycardic and normotensive, afebrile, no respiratory distress Exam is pertinent for: Irregular bradycardia appears to be atrial fibrillation on the monitor. Patient says she is not prescribed digoxin. In review of her medications as he she is prescribed flecainide, diltiazem and propranolol Differential diagnoses considered but not limited to: Medication adverse reaction, sick sinus syndrome, slow AFib, av block vs other paroxysmal arrhythmia Initial treatment plan includes: Check laboratories, electrolytes, remain on monitor, may consider external pacing if becomes unstable although hemodynamically stable here EKG 1153: Atrial fibrillation rate of 85, QRS broad 154, QTC prolonged 545. EKG 1402: Sinus bradycardia rate of 49 with first-degree AV block. CT prolonged 260, QRS broad 130. No ST segment elevation or depression. Normal axis. Laboratories pertinent for: stable CKD, no anemia, no leukocytosis, slightly elevated BNP 1000 Imaging pertinent for: CXR with no acute findings Spoke with education sales consultant Dr. Voss at 1600 regarding patient's presentation, symptoms, EKG findings, recommends transfer to [facility] for Cardiology consultation. Recommend hold flecainide and diltiazem, remain on telemetry Spoke with CHLOE León at 1623 who accepts pt in transfer to obs/tele under medicine service. On reassessment at 1610 patient agreeable and understanding of need for transfer. Discharge Plan Departure Patient Disposition: [facility] Clinical Impression: Atrial fibrillation with slow ventricular response, Atrioventricular block, first degree Arrhythmia Qualifiers: Arrhythmia type: atrial fibrillation Prescriptions: No Action propranolol 10 mg tablet 10 mg PO TID Qty: 270 3RF losartan 50 mg tablet 50 mg PO DAILY Qty: 90 3RF flecainide 150 mg tablet 150 mg PO BID Qty: 120 1RF (DME) DISABLED PARKING PERMIT See Rx Instructions .ROUTE .MEDSUPPLY Qty: 1 0RF Rx Instructions: I find this patient to be medically disabled and qualified for disabled parking as indicated, and signed, on the accompanying Disabled Parking Application for Individuals. chlorthalidone 25 mg tablet 25 mg PO Q OTHER DAY Qty: 45 3RF atorvastatin 20 mg tablet 20 mg PO QPM Qty: 90 0RF (DME) Parking Permit... See Rx Instructions .Route .MEDSUPPLY Qty: 1 0RF Rx Instructions: As directed diltiazem HCl 120 mg capsule,extended release 24hr 120 mg PO BID fluorouracil 5 % cream topical biotin PO diphenhydramine-acetaminophen [Tylenol PM Extra Strength] 25-500 mg tablet 2 tab PO BEDTIME PRN magnesium oxide 400 mg magnesium tablet 400 mg PO DAILY dvwiicyufnaz-Lh-cdrv-minerals Tablet PO Referrals: Emma Jaime MD [Primary Care Provider, Family Practice]
--- NOTE | 2024-11-02 17:14 | PC.NURSE ---
Transport Update: Transfer->[facility] Unit: -[facility] Rm 441-Bed 2 RN-2-RN #[phone] Ext: [phone] (ANDREW Wallace) León zuleima accepts will need ALS transport after 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 LEAF CONDITIONER HELPER updated on this.
[2024-11-02] MEDS: MAGNESIUM SULFATE 2 GM/50 ML PIGGYBACK IV (19:32)
--- NOTE | 2024-11-02 19:59 | PC.NURSE ---
RN-to-RN report called to [facility], spoke with ANDREW Wallace via phone. She has no further questions and was updated that patient is leaving [place] at this time and has an expected arrival time of [phone]. Patient being transported by [facility] crew. Bedside report given to ALS crew.
== END 2024-11-02 20:02 | disposition short-term general hospital (02) ==
PROVIDERS: Emergency Provider Student in an Organized Health Care Education/Training Program; PCP Family Medicine
DX: I48.91 Unspecified atrial fibrillation (principal); I44.0 Atrioventricular block, first degree; R00.1 Bradycardia, unspecified; Z79.01 Long term (current) use of anticoagulants
CPT/HCPCS: 36415; 71045; 80053; 82550; 83690; 83735; 83880; 84484; 85025; 85610; 85730; 93005; 96365; 99284; J3475

== ENCOUNTER 2024-11-07 22:49 | Emergency (ER) | payer OTHER, SELFPAY ==
--- NOTE | 2024-11-07 22:54 | DI.RAD.S_ITS ---
PROCEDURE: XR CHEST 1V INDICATIONS: Chest Pain TECHNIQUE: One view of the chest was acquired. COMPARISON: [facility], CR, XR CHEST 1V, 11/02/2024, 11:34. FINDINGS: Surgical changes and devices: Lead less cardiac moderate device. Lungs and pleura: Lungs are clear. No pleural effusions or pneumothorax. Mediastinum: Mediastinal contours appear normal. Heart size is normal. Bones and chest wall: No suspicious bony lesions. Overlying soft tissues appear unremarkable. IMPRESSION: No acute cardiopulmonary abnormalities or focal consolidation. Dictated by: Ahsan Lopez M.D. on 11/07/2024 at 23:15 Approved by: Ahsan Lopez M.D. on 11/07/2024 at 23:17
--- NOTE | 2024-11-07 22:54 | EKG_ITS ---
[facility] [address] [place] [address] Test Date: 2024-11-07 Pat Name: Jennie Reyes Department: [facility] Room: Gender: Female Web Content Developer: MAGGI LONG : 1940 Requested By: Order Number: [id number] Reading MD: Vladislav Ceja MD Measurements Intervals [place] Rate: 130 P: TN: QRS: 2 QRSD: 90 T: 162 QT: 280 QTc: 412 Interpretive Statements Atrial fibrillation with rapid ventricular response ST & T wave abnormality, consider lateral ischemia Electronically Signed On 11-09-2024 6:40:51 PDT by Vladislav Ceja MD
[2024-11-07 22:55] VITALS: O2SAT 95
[2024-11-07 22:57] VITALS: BP 177/81; PULSE 114; O2SAT 97
--- NOTE | 2024-11-07 22:57 | ED_ITS ---
HPI - Arrhythmia/Palpitations General Chief Complaint: Arrhythmia/Palpitations Stated Complaint: AFIB, Lightheaded, dizziness Time Seen by Provider: 11/07/24 22:57 History of Present Illness HPI narrative: Patient is a 84-year-old female with a past medical history of AFib on Eliquis, flecainide diltiazem, essential tremors takes propranolol, hypertension, comes into the ED from home for evaluation of palpitations, lightheadedness. She states that she was recently seen here on 11/02/2024 and transferred to [facility] for cardiac monitoring, she states that she was taken off all of her rate control medications such as flecainide and diltiazem and was discharged home to see if this would help her symptoms however she states that she now is having palpitations with associated lightheadedness however blood pressure is stable at time of initial evaluation. She has been compliant with all her other medications. Patient follows with cardiology PARTH Molina. Related Data Home Medications ?Medication ?Instructions ?Recorded ?Confirmed fluorouracil 5 % topical cream applic topical 12/20/22 11/07/24 biotin PO 04/04/23 11/07/24 diphenhydramine 25 2 tab PO BEDTIME 04/04/23 mg-acetaminophen 500 mg tablet (Tylenol PM Extra Strength) oisxproqxrsj-Vg-qdmi-minerals tab PO 04/04/23 11/07/24 apixaban 5 mg tablet 5 mg PO BID 11/07/24 5 ipratropium bromide 42 mcg (0.06 1 spray intranasal BI D 11/07/24 11/07/24 %) nasal spray magnesium oxide 400 mg PO QPM 11/07/2411/07 Previous Rx's ?Medication ?Instructions ?Recorded DISABLED PARKING PERMIT #1 ea 11/14/21 Parking Permit... #1 ea 11/14/21 losartan 50 mg tablet 50 mg PO DAILY #90 tabs 05/21 propranolol 10 mg tablet 10 mg PO TID #270 tabs 05/30 chlorthalidone 25 mg tablet 25 mg PO Q OTHER DAY #45 t abs 06/12/24 atorvastatin 20 mg tablet 20 mg PO QPM #90 tabs meclizine 25 mg chewable tablet 25 mg PO BID PRN dizzi ness 1 week 11/08/24 (Antivert) #14 tabs Allergies Allergy/AdvReac Type Severity Reaction Status Date / Time No Known Drug Allergies Allergy Verified 11/07/24 23:01 Review of Systems Review of Systems Narrative: General: Denies fever, chills, weight loss HEENT: Denies headache, eye drainage, eye irritation, head trauma, sore throat, voice change Cardiovascular: Positive palpitations, tachycardia Denies any chest pain Respiratory: Denies any shortness of breath, cough, wheeze, stridor GI/: Denies any abdominal pain, nausea, vomiting, diarrhea, bright red blood per rectum, melanotic stools, urinary frequency, urinary retention, dysuria, hematuria MSK: Denies any joint pain, muscle pains, swelling Skin: Denies any rashes, lesions, discoloration Neuro: Denies any headache, lightheadedness, dizziness, fainting, weakness Psych: Denies SI/HI Patient History Medical History (Updated 11/08/24 @ 00:10 by Antonio Rose DO) Pneumonitis Intention tremor Sleep apnea Chronic kidney disease, stage 3 (06/2020) Anticoagulation monitoring, INR range 2-3 Warfarin anticoagulation Dysphagia Seasonal allergies Nail brittleness (~10/2019) Squamous cell carcinoma (~04/2017) Sciatica (Unknown) GERD (gastroesophageal reflux disease) (Unknown) Osteopenia after menopause Hyperlipidemia Essential hypertension Atrial fibrillation (01/22/14) Surgical History 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) Hx of breast biopsy (08/2014) Family History Father No problems noted. Mother No problems noted. Social History Tobacco: How many years used: 25 second hand exposure: No alcohol intake: current substance use type: does not use alcohol intake frequency: 0-2 drinks per day Exam Narrative Exam Narrative: General: Cooperative, well-developed, not in acute distress HEENT: Normocephalic, atraumatic, PERRLA, normal sclera, eyelids normal Neck: Active full range of motion, atraumatic Chest: Normal to inspection, negative crepitus, no overlying erythema ecchymosis Respiratory: Normal respiratory effort, not in acute respiratory distress, clear to auscultation bilaterally negative cough, wheeze, tachypnea, rhonchi, rales Cardiology: Irregularly irregular, tachycardic negative gallop, murmur, rubs GI/: No tenderness to palpation, soft, non rigid, normal to inspection, exam deferred MSK: Full active range of motion in all 4 extremities, atraumatic, no tenderness to palpation of any bony prominences Skin: No rashes or lesions noted Neuro: Alert awake oriented x3, moves all 4 extremities spontaneously, cranial nerves intact, able to answer all questions appropriately follows commands appropriately Psych: Cooperative, negative suicidal or homicidal ideations Initial Vital Signs Initial Vital Signs: Vital Signs Pulse Oximetry 95 11/07/24 22:55 Course Orders Ordered: ED Orders 11/07/24 22:54 XR chest 1V Stat EKG-12 Lead Stat 11/07/24 23:04 Complete Blood Count AUTO DIFF Stat Comprehensive Metabolic Panel Stat Lipase Stat Magnesium Stat NT-proBNP (BNP-Adult 18+) Stat PTT Partial Thromboplastin Roman Stat Prothrombin Time INR Stat TSH [Thyroid Stimulating Hormone] Stat Troponin & CK Cardiac Panel Stat 11/07/24 23:34 CT head/brain wo con Stat 11/07/24 23:35 CT angio head and neck Stat Discontinued Medications Aspirin (Aspirin 81 Mg Chew Tab) 324 mg PO NOW ONE Stop: 11/07/24 22:55 Last Admin: 11/07/24 23:01 Dose: Not Given Documented By: ALEJANDRA Diltiazem HCl (Diltiazem 25 Mg/5 Ml Sdv) 20 mg IV NOW ONE Stop: 11/07/24 23:05 Last Admin: 11/07/24 23:15 Dose: 20 mg Documented By: CARLOTTA Diltiazem HCl (Diltiazem 30 Mg Tablet) 60 mg PO NOW ONE Stop: 11/07/24 23:28 Last Admin: 11/07/24 23:43 Dose: 60 mg Documented By: CARLOTTA Magnesium Sulfate (Magnesium Sulfate) 2 gm in 50 mls @ 150 mls/hr IV NOW ONE Stop: 11/07/24 23:23 Last Infusion: 11/07/24 23:40 Dose: Infused Documented By: CARLOTTA Co-signed By: GAMAL Admin: 11/07/24 23:14 Dose: 150 mls/hr Documented By: CARLOTTA Co-signed By: KORY Meclizine HCl (Meclizine Hcl 12.5 Mg Tablet) 25 mg PO NOW ONE Stop: 11/07/24 23:36 Last Admin: 11/07/24 23:43 Dose: 25 mg Documented By: CARLOTTA Vital Signs Vital signs: Vital Signs - 8 hr 11/07/24 22:55 11/07/24 22:57 11/07/24 22:57 Temperature Pulse Rate 114 H Respiratory Rate Blood Pressure 177/81 H Pulse Oximetry 95 97 Oxygen Delivery Method 11/07/24 23:00 11/07/24 23:00 11/07/24 23:01 Temperature 98.2 F Pulse Rate 142 H 146 H Respiratory Rate 28 H 16 Blood Pressure 160/71 H 177/81 H Pulse Oximetry 98 97 Oxygen Delivery Method Room Air MDM - Arrhythmia/Palpitations Differential Diagnosis Differential diagnosis: Likely palpitations, sinus tachycardia, artial fibrillation, artial flutter, ventricular premature beats, supraventricular tachycardia and other (Electrolyte abnormality, ACS, pneumonia) Lab Data 11/07/24 23:04 11/07/24 23:04 Labs: Lab Results 11/07/24 Range/Units 23:04 WBC 5.9 (4.5-11.0) X10^3/uL RBC 4.81 (4.0-5.2) X10^6/uL Hgb 15.8 (12.0-16.0) g/dL Hct 46.7 H (36-46) % MCV 97.3 (80-100) fL MCH 32.8 (26-34) PG MCHC 33.8 (30-36) % RDW 14.2 (11.6-14.8) % Plt Count 192 (150-400) X10^3/uL Neut % (Auto) 50.4 (50-75) % Lymph % (Auto) 36.5 (25-40) % [place] % (Auto) 11.4 (3-14) % Eos % (Auto) 0.9 L (2-4) % Baso % (Auto) 0.8 (0-2) % Neut # (Auto) 2900 (6641-5431) /uL Lymph # (Auto) 2100 (5158-4533) /uL [place] # (Auto) 700 (0-900) /uL Eos # (Auto) 100 (0-450) /uL Baso # (Auto) 0 (0-100) /uL PT 12.2 (9.4-12.5) SECONDS INR 1.1 (0.9-1.3) APTT 36 (25.1-36.5) SECONDS Sodium 137 (137-145) mmol/L Potassium 3.7 (3.4-5.1) mmol/L Chloride 103 (98-107) mmol/L Carbon Dioxide 25 (22-32) mmol/L BUN 31 H (7-17) mg/dL Creatinine 1.18 H (0.52-1.04) mg/dL Estimated GFR 46 L (>60) mL/min BUN/Creatinine Ratio 26.3 H (6-22) Glucose 99 (70-99) mg/dL Calcium 9.9 (8.4-10.2) mg/dL Magnesium 2.2 (1.6-2.3) mg/dL Total Bilirubin 0.6 (0.2-1.3) mg/dL AST 47 H (14-36) IU/L ALT 46 H (<35) IU/L Alkaline Phosphatase 109 (38-126) U/L Total Creatine Kinase 34 (30-135) U/L Troponin I < 0.012 (0.01-0.034) ng/mL NT-Pro-B Natriuret Pep 440 (<450) pg/mL Total Protein 7.1 (6.3-8.2) g/dL Albumin 4.3 (3.5-5.0) g/dL Globulin 2.8 (1.7-4.1) g/dL Albumin/Globulin Ratio 1.5 (1.0-2.8) Lipase 182 D (23-300) U/L TSH 0.020 L (0.47-4.68) uIU/mL Imaging Data Chest x-ray: Radiologist's Impresson: [address] [address] XRay Report Signed Patient: Jennie Reyes MR#: [id number] : 1940 Acct:[id number] Age/Sex: 84 / F Date of Service: 11/07/24 Loc: ED Accession Number: [id number] Procedure: XR chest 1V Ordering Provider: Antonio Rose D.O. PROCEDURE: XR CHEST 1V INDICATIONS: Chest Pain TECHNIQUE: One view of the chest was acquired. COMPARISON: [facility], CR, XR CHEST 1V, 11/02/2024, 11:34. FINDINGS: Surgical changes and devices: Lead less cardiac moderate device. Lungs and pleura: Lungs are clear. No pleural effusions or pneumothorax. Mediastinum: Mediastinal contours appear normal. Heart size is normal. Bones and chest wall: No suspicious bony lesions. Overlying soft tissues appear unremarkable. IMPRESSION: No acute cardiopulmonary abnormalities or focal consolidation. CT scan - head: Radiologist's Impresson: [address] [address] [address] Scan Report Signed Patient: Jennie Reyes MR#: [id number] : 1940 Acct:[id number] Age/Sex: 84 / F Date of Service: 11/07/24 Loc: ED Accession Number: [id number] Procedure: CT head/brain wo con Ordering Provider: Antonio Rose D.O. PROCEDURE: CT HEAD/BRAIN WO CON INDICATIONS: Dizziness, Afib TECHNIQUE: Noncontrast 4.5 mm thick angled axial sections acquired from the foramen magnum to the vertex, with coronal and sagittal reformats. For radiation dose reduction, the following was used: automated exposure control, adjustment of mA and/or kV according to patient size. COMPARISON: [facility], CT, CT HEAD/BRAIN WO CON, 02/21/2024, 15:05. [facility], CT, CT HEAD/BRAIN WO CON, 12/18/2021, 17:21. FINDINGS: Image quality: Diagnostic. CSF spaces: Basal cisterns are patent. No extra-axial fluid collections. The ventricles are symmetric in size and shape. Brain: No intracranial bleeds or mass effect. There is cerebral volume loss, with resultant ventricular and sulcal prominence. There are periventricular and deep white matter chronic small vessel ischemic changes. There is intracranial internal carotid artery atherosclerosis. Skull and face: Calvarium and visualized facial bones appear intact, without suspicious lesions. Sinuses: Visualized sinuses and mastoids are clear. IMPRESSION: 1. CT head without acute intracranial abnormalities or acute calvarial fractures. 2. Age-related senescent changes and sequela of chronic small vessel ischemic disease. CTA - brain/neck: Radiologist's Impresson: [address] [address] [address] Scan Report Signed Patient: Jennie Reyes MR#: [id number] : 1940 Acct:[id number] Age/Sex: 84 / F Date of Service: 11/07/24 Loc: ED Accession Number: [id number] Procedure: CT angio head and neck Ordering Provider: Antonio Rose D.O. PROCEDURE: CT ANGIO HEAD AND NECK INDICATIONS: Dizziness, Afib TECHNIQUE: After the administration of intravenous contrast, 1 mm thick sections acquired from the aortic arch through the [place] of [place]. 3-dimensional tnxndsw-qffpgiuyl-dkyaeybrxq (MIP) and/or volume rendering reformats were acquired of the central intracranial vasculature and neck separately. For radiation dose reduction, the following was used: automated exposure control, adjustment of mA and/or kV according to patient size. COMPARISON: [facility], CT, CT ANGIO HEAD AND NECK, 07/19/2022, 8:49. FINDINGS: Image quality: Diagnostic. BRAIN: CSF spaces: Ventricles are normal in size and shape. Basal cisterns are patent. No extra-axial fluid collections. Brain: No midline shift. No intracranial masses. No suspicious enhancement. Harvey-white matter interface appears intact. Skull and face: Calvarium and facial bones appear intact, without suspicious lesions. Orbits appear normal. Sinuses: Sinuses and mastoids are clear. HEAD CT ANGIOGRAPHY: Anterior circulation: There are atherosclerotic calcifications of the intracranial segments of the internal carotid arteries. Intracranial internal carotid arteries appear patent without high-grade stenosis. There is flow/opacification within the paired anterior cerebral arteries. There is opacification within the middle cerebral arteries. The anterior communicating artery is seen. No aneurysms are seen. No occlusion. Posterior circulation: Visualized portions of the vertebral arteries are patent and join to form a normal appearing basilar artery. No evidence for high-grade stenosis. No occlusions. There is opacification of the posterior cerebral arteries. No aneurysms are seen. NECK CT ANGIOGRAPHY: Carotid system: The great vessels demonstrate a conventional anatomy as they arise from the aortic arch. Atherosclerotic calcifications of the aortic arch are present. The origins of the common carotid arteries appear patent. The common carotid arteries appear patent throughout their visualized courses without high grade stenosis. Atherosclerosis involving the bilateral carotid bulbs. The bifurcation regions are both patent without high grade stenosis. The internal carotid arteries demonstrate normal calibers and courses. Posterior circulation: The origins of the vertebral arteries both appear patent without hemodynamically significant stenosis. The more superior extracranial portions of both vertebral arteries also demonstrate normal courses and calibers. They join to form a normal appearing basilar artery. Soft tissues: Visualized neck soft tissues demonstrate no suspicious abnormalities. No suspicious adenopathy. No apical pneumothoraces. Bones: No suspicious bony lesions. Visualized cervical spine appears normally aligned. No acute compression fractures of the vertebral bodies. Moderate multilevel cervical spondylosis. IMPRESSION: No significant intracranial arterial abnormality is seen. No significant abnormality is seen within the arteries of the neck. If there is persistent or high clinical suspicion for acute cerebrovascular ischemia/stroke, more sensitive evaluation with brain MRI can be considered. Any quantitative measurements of stenosis were performed using NASCET criteria. ECG Data Interpretation: EKG interpreted ED physician atrial fibrillation at 130 beats per minute QTC 412, normal axis nonspecific ST changes no STEMI MDM Narrative Medical decision making narrative: Patient is a 84-year-old female with a past medical history of AFib on Eliquis, essential tremors taking propranolol for this, hypertension presenting for palpitations lightheadedness, she states that this has been ongoing and persistent for the past several days states that she was seen here on 11/02/2024 for the same and was transferred to [facility] in which she was monitored overnight and was taken off her flecainide and diltiazem, she presents to the emergency department in AFib, patient does follow up with PAR[facility] Molina. EKG did show patient AFib in 130 no ischemic changes, was given 20 mg IV Cardizem with rate control, did order 60 mg p.o. Cardizem to follow. Patient's chest x- ray without any acute cardiopulmonary abnormality. CT head without any acute intracranial abnormality. CTA without any acute findings. [facility]ed [facility], patient was monitored for 48 hours on cardiac telemetry, the case was discussed with cardiology and EP and decision at that time was to discontinue diltiazem and flecainide and to have patient on a Zio patch and to follow up with Cardiology in the next week or 2. Patient did have echo performed on 11/03/2024 did show left ventricular size and function within normal limits, ejection fraction 63% 6.21.25 @ 0041: Patient re-evaluated no new complaints at this time, she states that she actually feels improved after administration of medication, she feels comfortable going home and being discharged home with outpatient follow up did inform her to continue her diltiazem given the fact that she went back into AFib but to contact her rn transitional he verbalized understanding of this and agrees to being discharged home with outpatient follow up Discharge Plan Departure Patient Disposition: Home Clinical Impression: A-fib Activity Restrictions/Additional Instructions: Please follow up with your rn transitional and your primary care doctor Please read the discharge instructions sheet carefully and bring all papers to all doctor follow-up visits, as it may contain information that your doctor may want to see. Disease processes change and evolve, if your symptoms worsen or if you develop any new symptoms that are concerning to you please return for evaluation. Your evaluation today does not show any evidence of any life- threatening/serious illnesses requiring admission to the hospital or surgery. Please follow-up with your doctor for re-evaluation in approximately 1 day. Seek immediate medical attention for any worrisome symptoms. *If you do not have a primary care provider please contact the [facility] Resource line at [phone]. They will ask some questions about your medical history and help get you set up with a doctor in the community. Prescriptions: New meclizine [Antivert] 25 mg tablet,chewable 25 mg PO BID PRN (Reason: dizziness) 7 Days Qty: 14 0RF No Action propranolol 10 mg tablet 10 mg PO TID Qty: 270 3RF losartan 50 mg tablet 50 mg PO DAILY Qty: 90 3RF (DME) DISABLED PARKING PERMIT See Rx Instructions .ROUTE .MEDSUPPLY Qty: 1 0RF Rx Instructions: I find this patient to be medically disabled and qualified for disabled parking as indicated, and signed, on the accompanying Disabled Parking Application for Individuals. chlorthalidone 25 mg tablet 25 mg PO Q OTHER DAY Qty: 45 3RF atorvastatin 20 mg tablet 20 mg PO QPM Qty: 90 0RF apixaban 5 mg tablet 5 mg PO BID ipratropium bromide 42 mcg (0.06 %) spray,non-aerosol 1 spray intranasal BID Rx Instructions: administer into each nostril magnesium oxide 400 mg magnesium tablet 400 mg PO QPM (DME) Parking Permit... See Rx Instructions .Route .MEDSUPPLY Qty: 1 0RF Rx Instructions: As directed fluorouracil 5 % cream topical biotin PO diphenhydramine-acetaminophen [Tylenol PM Extra Strength] 25-500 mg tablet 2 tab PO BEDTIME xgtowhivrkpy-Gt-fhjl-minerals Tablet PO Referrals: Emma Jaime MD [Primary Care Provider, Family Practice] Stand Alone Forms: Patient Portal/API
[2024-11-07 23:00] VITALS: BP 160/71; PULSE 142; RESP 28; O2SAT 98
[2024-11-07 23:01] VITALS: BP 177/81; PULSE 146; RESP 16; TEMP 36.8; O2SAT 97; BMI 30.2
[2024-11-07 23:14] LABS: Add Manual Diff / Slide Review NO; Basophils Absolute Auto 0 /uL (0-100); Basophils Percent Auto 0.8 % (0-2); Eosinophils Absolute Auto 100 /uL (0-450); Eosinophils Percent Auto 0.9 % (2-4); Hematocrit 46.7 % (36-46); Hemoglobin 15.8 g/dL (12.0-16.0); Lymphocytes Absolute Auto 2100 /uL (1100-4500); Lymphocytes Percent Auto 36.5 % (25-40); Mean Corpuscular HGB Conc 33.8 % (30-36); Mean Corpuscular Hemoglobin 32.8 PG (26-34); Mean Corpuscular Volume 97.3 fL (80-100); Monocytes Absolute Auto 700 /uL (0-900); Monocytes Percent Auto 11.4 % (3-14); Neutrophils Absolute Auto 2900 /uL (1500-7000); Neutrophils Percent Auto 50.4 % (50-75); Platelet Count 192 X10^3/uL (150-400); Red Blood Cell Count 4.81 X10^6/uL (4.0-5.2); Red Cell Distribution Width 14.2 % (11.6-14.8); White Blood Cell Count 5.9 X10^3/uL (4.5-11.0)
[2024-11-07] MEDS: MAGNESIUM SULFATE 2 GM/50 ML PIGGYBACK IV (23:14)
[2024-11-07] MEDS: dilTIAZem 25 MG/5 ML SDV 20 MG IV (23:15)
[2024-11-07 23:20] LABS: INR 1.1 (0.9-1.3); Prothrombin Time 12.2 SECONDS (9.4-12.5)
[2024-11-07 23:23] LABS: PTT Partial Thromboplastin Tim 36 SECONDS (25.1-36.5)
[2024-11-07 23:24] LABS: Alanine Aminotransferase 46 IU/L (<35); Albumin 4.3 g/dL (3.5-5.0); Albumin Globulin Ratio 1.5 (1.0-2.8); Alkaline Phosphatase 109 U/L (38-126); Aspartate Aminotransferase 47 IU/L (14-36); BUN Creatinine Ratio 26.3 (6-22); Bilirubin Total 0.6 mg/dL (0.2-1.3); Blood Urea Nitrogen 31 mg/dL (7-17); Calcium 9.9 mg/dL (8.4-10.2); Carbon Dioxide 25 mmol/L (22-32); Chloride 103 mmol/L (98-107); Creatine Kinase 34 U/L (30-135); Estimated Glomerular Filt Rate 46 mL/min (>60); Globulin 2.8 g/dL (1.7-4.1); Glucose 99 mg/dL (70-99); HEMOLYSIS < 15 (0-50); Lipase 182 U/L (23-300); Magnesium 2.2 mg/dL (1.6-2.3); Potassium 3.7 mmol/L (3.4-5.1); Sodium 137 mmol/L (137-145); Total Protein 7.1 g/dL (6.3-8.2)
[2024-11-07 23:30] VITALS: BP 142/64; PULSE 90; RESP 15; O2SAT 93
--- NOTE | 2024-11-07 23:34 | DI.CT.S_ITS ---
PROCEDURE: CT HEAD/BRAIN WO CON INDICATIONS: Dizziness, Afib TECHNIQUE: Noncontrast 4.5 mm thick angled axial sections acquired from the foramen magnum to the vertex, with coronal and sagittal reformats. For radiation dose reduction, the following was used: automated exposure control, adjustment of mA and/or kV according to patient size. COMPARISON: [facility], CT, CT HEAD/BRAIN WO CON, 02/21/2024, 15:05. [facility], CT, CT HEAD/BRAIN WO CON, 12/18/2021, 17:21. FINDINGS: Image quality: Diagnostic. CSF spaces: Basal cisterns are patent. No extra-axial fluid collections. The ventricles are symmetric in size and shape. Brain: No intracranial bleeds or mass effect. There is cerebral volume loss, with resultant ventricular and sulcal prominence. There are periventricular and deep white matter chronic small vessel ischemic changes. There is intracranial internal carotid artery atherosclerosis. Skull and face: Calvarium and visualized facial bones appear intact, without suspicious lesions. Sinuses: Visualized sinuses and mastoids are clear. IMPRESSION: 1. CT head without acute intracranial abnormalities or acute calvarial fractures. 2. Age-related senescent changes and sequela of chronic small vessel ischemic disease. Dictated by: Ahsan Lopez M.D. on 11/08/2024 at 0:22 Approved by: Ahsan Lopez M.D. on 11/08/2024 at 0:24
--- NOTE | 2024-11-07 23:35 | DI.CT.S_ITS ---
PROCEDURE: CT ANGIO HEAD AND NECK INDICATIONS: Dizziness, Afib TECHNIQUE: After the administration of intravenous contrast, 1 mm thick sections acquired from the aortic arch through the [place] of [place]. 3-dimensional wggnsnw-exzxyjsfz-zmihczuwcd (MIP) and/or volume rendering reformats were acquired of the central intracranial vasculature and neck separately. For radiation dose reduction, the following was used: automated exposure control, adjustment of mA and/or kV according to patient size. COMPARISON: [facility], CT, CT ANGIO HEAD AND NECK, 07/19/2022, 8:49. FINDINGS: Image quality: Diagnostic. BRAIN: CSF spaces: Ventricles are normal in size and shape. Basal cisterns are patent. No extra-axial fluid collections. Brain: No midline shift. No intracranial masses. No suspicious enhancement. Harvey-white matter interface appears intact. Skull and face: Calvarium and facial bones appear intact, without suspicious lesions. Orbits appear normal. Sinuses: Sinuses and mastoids are clear. HEAD CT ANGIOGRAPHY: Anterior circulation: There are atherosclerotic calcifications of the intracranial segments of the internal carotid arteries. Intracranial internal carotid arteries appear patent without high-grade stenosis. There is flow/opacification within the paired anterior cerebral arteries. There is opacification within the middle cerebral arteries. The anterior communicating artery is seen. No aneurysms are seen. No occlusion. Posterior circulation: Visualized portions of the vertebral arteries are patent and join to form a normal appearing basilar artery. No evidence for high-grade stenosis. No occlusions. There is opacification of the posterior cerebral arteries. No aneurysms are seen. NECK CT ANGIOGRAPHY: Carotid system: The great vessels demonstrate a conventional anatomy as they arise from the aortic arch. Atherosclerotic calcifications of the aortic arch are present. The origins of the common carotid arteries appear patent. The common carotid arteries appear patent throughout their visualized courses without high grade stenosis. Atherosclerosis involving the bilateral carotid bulbs. The bifurcation regions are both patent without high grade stenosis. The internal carotid arteries demonstrate normal calibers and courses. Posterior circulation: The origins of the vertebral arteries both appear patent without hemodynamically significant stenosis. The more superior extracranial portions of both vertebral arteries also demonstrate normal courses and calibers. They join to form a normal appearing basilar artery. Soft tissues: Visualized neck soft tissues demonstrate no suspicious abnormalities. No suspicious adenopathy. No apical pneumothoraces. Bones: No suspicious bony lesions. Visualized cervical spine appears normally aligned. No acute compression fractures of the vertebral bodies. Moderate multilevel cervical spondylosis. IMPRESSION: No significant intracranial arterial abnormality is seen. No significant abnormality is seen within the arteries of the neck. If there is persistent or high clinical suspicion for acute cerebrovascular ischemia/stroke, more sensitive evaluation with brain MRI can be considered. Any quantitative measurements of stenosis were performed using NASCET criteria. Dictated by: Ahsan Lopez M.D. on 11/08/2024 at 0:24 Approved by: Ahsan Lopez M.D. on 11/08/2024 at 0:30
[2024-11-07 23:36] LABS: NT-proBNP (BNP-Adult 18+) 440 pg/mL (<450); Troponin I < 0.012 ng/mL (0.01-0.034)
[2024-11-07] MEDS: MECLIZINE HCL 12.5 MG TABLET 25 MG PO (23:43)
[2024-11-07] MEDS: dilTIAZem 30 MG TABLET 60 MG PO (23:43)
[2024-11-07 23:45] VITALS: BP 120/63; PULSE 90; RESP 21; O2SAT 96
--- NOTE | 2024-11-07 23:50 | PC.NURSE ---
Pt to imaging via ED stretcher with data communications technician
[2024-11-08 00:04] VITALS: PULSE 92; O2SAT 98
[2024-11-08 00:30] VITALS: PULSE 95; RESP 17; O2SAT 93
[2024-11-08 00:47] VITALS: PULSE 95; RESP 21; O2SAT 94
[2024-11-08 00:49] VITALS: BP 161/66
--- NOTE | 2024-11-08 00:52 | PC.NURSE ---
Pt ambulatory to restroom without diffculty or assistance
== END 2024-11-08 01:05 | disposition home or self-care (01) ==
PROVIDERS: Emergency Provider Student in an Organized Health Care Education/Training Program; PCP Family Medicine
DX: I48.91 Unspecified atrial fibrillation (principal); R42 Dizziness and giddiness; Z79.01 Long term (current) use of anticoagulants; Z86.79 Personal history of other diseases of the circulatory system
CPT/HCPCS: 36415; 70450; 70496; 70498; 71045; 80053; 82550; 83690; 83735; 83880; 84443; 84484; 85025; 85610; 85730; 93005; 93010; 96365; 96375; 99284; J3475; Q9967

== ENCOUNTER → 2024-11-10 12:33 | Outpatient (CLI) | payer OTHER, SELFPAY ==
[2024-11-10 17:50] LABS: Influenza A - CEPHEID Flu A NEGATIVE (NEGATIVE); Influenza B - CEPHEID Flu B NEGATIVE (NEGATIVE); Respiratory Syncytial Virus Negative (Negative)
[2024-11-10 17:51] LABS: COVID-19 CEPHEID 4-PLEX PCR Negative (Negative)
== END ==
PROVIDERS: PCP Family Medicine; Visit Provider Family Medicine
DX: R68.89 Other general symptoms and signs (principal)
CPT/HCPCS: 0241U

== ENCOUNTER 2025-03-09 10:53 | Emergency (ER) | payer OTHER, SELFPAY ==
[2025-03-09 10:55] VITALS: BP 153/96; PULSE 98; RESP 18; TEMP 36.4; O2SAT 97; BMI 31.6
--- NOTE | 2025-03-09 11:00 | DI.CT.S_ITS ---
PROCEDURE: CT CERVICAL SPINE WO CON INDICATIONS: fall, thinners TECHNIQUE: Noncontrast 3 mm thick sections acquired from the skull base to the T4 level. Sagittal and coronal reformats were then constructed. For radiation dose reduction, the following was used: automated exposure control, adjustment of mA and/or kV according to patient size. COMPARISON: Merged With [facility], CT, CT CERVICAL SPINE WO CON, 02/21/2024, 15:05. FINDINGS: Image quality: Excellent. Bones: No fractures or dislocations. Visualized superior ribs are intact. Chronic, grade 1, stepwise, anterolisthesis of C3 on C4 and C4 on C5. Moderately degenerated disc osteophyte complex at C5-6 and C6-7. Degenerative ankylosis of the left facet joints at C5-6. Soft tissues: Prevertebral soft tissues are normal in thickness. No paravertebral hematomas. No apical pneumothoraces. IMPRESSION: No displaced fracture or traumatic subluxation. Chronic multilevel degenerative changes of the mid cervical spine with degenerative stepwise grade 1 anterolisthesis of C2-4. Communication: The above findings of no acute displaced fracture or traumatic subluxation were discussed with the ordering clinician, Dr. Anderson, by Dr. Sung via telephone on 03/09/2025 at 12:15 p.m. PDT. Dictated by: Farooq Sung M.D. on 03/09/2025 at 12:16 Approved by: Farooq Sung M.D. on 03/09/2025 at 12:18
--- NOTE | 2025-03-09 11:00 | DI.CT.S_ITS ---
PROCEDURE: CT HEAD/BRAIN WO CON INDICATIONS: fall, thinners TECHNIQUE: Noncontrast 4.5 mm thick angled axial sections acquired from the foramen magnum to the vertex, with coronal and sagittal reformats. For radiation dose reduction, the following was used: automated exposure control, adjustment of mA and/or kV according to patient size. COMPARISON: Merged With [facility], CT, CT HEAD/BRAIN WO CON, 11/07/2024, 23:48. FINDINGS: Image quality: Diagnostic. CSF spaces: Basal cisterns are patent. No extra-axial fluid collections. The ventricles are symmetric in size and shape. Brain: No intracranial bleeds or mass effect. There is cerebral volume loss, with resultant ventricular and sulcal prominence. There are periventricular and deep white matter chronic small vessel ischemic changes. There is intracranial internal carotid artery atherosclerosis. Skull and face: Calvarium and visualized facial bones appear intact, without suspicious lesions. Sinuses: Visualized sinuses and mastoids are clear. IMPRESSION: No acute intracranial pathology. Communication: The above findings were discussed with the ordering clinician, Dr. Anderson, by Dr. Sung via telephone on 03/09/2025 at 12:15 pm PDT. Dictated by: Farooq Sung M.D. on 03/09/2025 at 12:08 Approved by: Farooq Sung M.D. on 03/09/2025 at 12:15
--- NOTE | 2025-03-09 14:08 | ED.FALL ---
HPI - Fall General Chief Complaint: Fall Stated Complaint: Bleeding from left arm Time Seen by Provider: 03/09/25 13:22 Source: patient Mode of arrival: Ambulatory History of Present Illness HPI Narrative: 84-year-old female patient with a history of atrial fibrillation, hypertension and dyslipidemia who was on apixaban who fell while dusting her home with sustained a laceration to the right proximal forearm just distal to the elbow. She denies head injury or loss of consciousness. No neck pain or other injury other than the laceration and skin tear to the right proximal forearm near the elbow. Related Data Home Medications ?Medication ?Instructions ?Recorded ?Confirmed biotin PO 04/04/23 12/02/24 diphenhydramine 25 2 tab PO BEDTIME 04/04/23 12/02/24 mg-acetaminophen 500 mg tablet (Tylenol PM Extra Strength) [id number]-Zf-suly-minerals tab PO 04/04/23 12/02/24 magnesium oxide 500 mg PO QPM 01/08/25 propranolol 10 mg tablet 10 mg PO TID PRN tremors,htn 01/08/25 Previous Rx's ?Medication ?Instructions ?Recorded DISABLED PARKING PERMIT #1 ea 11/14/21 diltiazem HCl 120 mg 120 mg PO DAILY heart rate control 11/14/24 capsule,extended release 12 hr #90 caps apixaban 5 mg tablet (Eliquis) 5 mg PO BID #180 tabs 01/08/25 losartan 50 mg tablet 50 mg PO DAILY #90 tabs 01/15/25 atorvastatin 20 mg tablet 20 mg PO QPM #90 tabs 01/21/25 Allergies Allergy/AdvReac Type Severity Reaction Status Date / Time No Known Drug Allergies Allergy Verified 12/02/24 13:08 Review of Systems Review of Systems ROS Unobtainable: All systems reviewed & are unremarkable except as noted in HPI and below Musculoskeletal Musculoskeletal: Reports as per HPI Patient History Medical History (Updated 03/09/25 @ 14:16 by Matteo Anderson MD) Primary osteoarthritis of right knee Pneumonitis Intention tremor Sleep apnea Chronic kidney disease, stage 3 (06/2020) Anticoagulation monitoring, INR range 2-3 Warfarin anticoagulation Dysphagia Seasonal allergies Nail brittleness (~10/2019) Squamous cell carcinoma (~04/2017) Sciatica (Unknown) GERD (gastroesophageal reflux disease) (Unknown) Osteopenia after menopause Hyperlipidemia Essential hypertension Atrial fibrillation (01/22/14) Surgical History 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) Hx of breast biopsy (08/2014) Family History Father No problems noted. Mother No problems noted. Social History Tobacco: How many years used: 25 second hand exposure: No alcohol intake: current substance use type: does not use alcohol intake frequency: 0-2 drinks per day Exam Narrative Exam Narrative: General: Alert and conversant. No distress. Appears well nourished and well hydrated Craniofacial: No evidence of trauma. Nontender and no swelling. Eyes: PERRLA EOMI conjunctiva clear HEENT: Tragus, pinnae nontender. Tympanic membranes normal appearance. Oropharynx clear with no swelling, exudate or asymmetry of the pharynx. Nares clear. No sinus tenderness Neck: No tenderness or adenopathy. Lungs: Clear to auscultation with good air movement. No wheezing, rales or rhonchi. No respiratory distress Abdomen: Soft, nontender with no distention or masses. Normal bowel sounds. No rebound or guarding Musculoskeletal: Patient has a complex laceration skin tear of the radial aspect of the proximal forearm just distal to the elbow measuring 12 cm. Otherwise Exam of the extremities, axial spine and ribcage reveals no deformity, bony tenderness or swelling. Range of motion intact Neuro: Alert and oriented. Cranial nerves, motor, sensory and cerebellar all grossly intact. No focal deficit Skin: Warm and normal color. No rashes Psychological: Normal affect and interaction. No evidence of delusion or psychosis. Normal mood. Initial Vital Signs Initial Vital Signs: Vital Signs Temperature 97.6 F 03/09/25 10:55 Pulse Rate 98 H 03/09/25 10:55 Respiratory Rate 18 03/09/25 10:55 Blood Pressure 153/96 H 03/09/25 10:55 Pulse Oximetry 97 03/09/25 10:55 Oxygen Delivery Method Room Air 03/09/25 10:55 Procedures Laceration Repair Laceration 1: Site: scalp and upper extremity (Proximal right forearm) Side (If applicable): right Size (cm): 12 Description: flap, irregular and clean Depth: simple, single layer Local Anesthetic: lidocaine 1% and with epi Amount of anesthesia used (mL): 5 Pre-repair: irrigated extensively and deep structures intact Skin layer closed with: nylon Skin layer suture size: 5-0 Number of sutures: 17 Technique: simple, interrupted and running (Several areas were reapproximated of this irregular multipart laceration. Some areas there was not enough skin for coverage or it was so thin that it could not take sutures. The open areas were covered with Xeroform gauze and dressed with sterile gauze and roll gauze) Course Orders Ordered: ED Orders 03/09/25 11:00 CT cervical spine wo con Stat CT head/brain wo con Stat Vital Signs Vital signs: Vital Signs - 8 hr 03/09/25 10:55 03/09/25 14:31 Temperature 97.6 F Pulse Rate 98 H 65 Respiratory Rate 18 18 Blood Pressure 153/96 H 138/65 Pulse Oximetry 97 98 Oxygen Delivery Method Room Air MDM - Fall Imaging Data CT scan - head: Radiologist's Impression: Impression: No acute intracranial pathology. CT - cervical spine: Radiologist's Impression: Impression: No displaced fracture or traumatic subluxation. Chronic changes otherwise [facility] Narrative Medical decision making narrative: Patient had a ground level fall with an isolated right forearm laceration/skin tear injury and no other areas on exam which require imaging or further workup. No head injury, neck injury or loss of consciousness. Her wounds were repaired partially with suturing and otherwise with Xeroform to open skin tear areas that could not be covered. She is given home care instructions on wound management follow up with her doctor or the ER in 2-3 days for reassessment. Because she was on blood thinners nurses ordered head CT and neck CT which were negative. Discharge Plan Departure Patient Disposition: Home Clinical Impression: Forearm laceration, Ground-level fall Instructions: DI for Laceration Repair, How to Prevent Falls Activity Restrictions/Additional Instructions: Plan: Leave the dressing in place and follow up with primary care with the ER in 2-3 days for wound recheck. Follow up in 8-10 days for suture removal with your doctor or the ER Prescriptions: No Action (DME) DISABLED PARKING PERMIT See Rx Instructions .ROUTE .MEDSUPPLY Qty: 1 0RF Rx Instructions: I find this patient to be medically disabled and qualified for disabled parking as indicated, and signed, on the accompanying Disabled Parking Application for Individuals. diltiazem HCl 120 mg capsule,extended release 12 hr 120 mg PO DAILY Qty: 90 3RF Eliquis 5 mg tablet 5 mg PO BID Qty: 180 3RF magnesium oxide 400 mg magnesium tablet 500 mg PO QPM propranolol 10 mg tablet 10 mg PO TID PRN (Reason: tremors,htn) losartan 50 mg tablet 50 mg PO DAILY Qty: 90 3RF atorvastatin 20 mg tablet 20 mg PO QPM Qty: 90 0RF biotin PO diphenhydramine-acetaminophen [Tylenol PM Extra Strength] 25-500 mg tablet 2 tab PO BEDTIME gexxshrdyvor-By-pibu-minerals Tablet PO Referrals: Emma Jaime MD [Primary Care Provider, Family Practice] - 03/12/25 Referral Note: Follow up with your doctor or the ER in 2-3 days for wound check. Follow up in 8-9 days for suture removal Stand Alone Forms: Patient Portal/API
[2025-03-09 14:31] VITALS: BP 138/65; PULSE 65; RESP 18; O2SAT 98
--- NOTE | 2025-03-09 14:32 | PC.NURSE ---
patient reports falling at home today and hitting arm on large piece of furniture
== END 2025-03-09 14:36 | disposition home or self-care (01) ==
PROVIDERS: Emergency Provider Emergency Medicine; PCP Family Medicine
DX: S51.811A Laceration without foreign body of right forearm, initial encounter (principal); W18.30XA Fall on same level, unspecified, initial encounter; Z79.01 Long term (current) use of anticoagulants
CPT/HCPCS: 12004; 70450; 72125; 99283; 99284

== ENCOUNTER 2025-03-12 09:36 | Emergency (ER) | payer OTHER, SELFPAY ==
[2025-03-12 09:37] VITALS: BP 146/101; PULSE 106; RESP 16; TEMP 36.6; O2SAT 100; BMI 31.6
--- NOTE | 2025-03-12 09:50 | ED.WOUNDLAC ---
HPI - Wound/Laceration General Chief Complaint: Wound/Laceration Stated Complaint: Wound check on right arm Time Seen by Provider: 03/12/25 09:47 Source: patient Mode of arrival: Ambulatory History of Present Illness HPI narrative: Patient here for wound check/dressing change. Patient seen here 3 days ago for right proximal forearm skin injury stitches were placed. There is a medial aspect of the skin that was not amenable for closing and left open for healing. No fever. No discharge from the wound. Wound is clean. No foul odor. Stitches are intact. Related Data Home Medications ?Medication ?Instructions ?Recorded ?Confirmed biotin PO 04/04/23 12/02/24 diphenhydramine 25 2 tab PO BEDTIME 04/04/23 12/02/24 mg-acetaminophen 500 mg tablet (Tylenol PM Extra Strength) [id number]-[id number]-minerals tab PO 04/04/23 12/02/24 magnesium oxide 500 mg PO QPM 01/08/25 propranolol 10 mg tablet 10 mg PO TID PRN tremors,htn 01/08/25 Previous Rx's ?Medication ?Instructions ?Recorded DISABLED PARKING PERMIT #1 ea 11/14/21 diltiazem HCl 120 mg 120 mg PO DAILY heart rate control 11/14/24 capsule,extended release 12 hr #90 caps apixaban 5 mg tablet (Eliquis) 5 mg PO BID #180 tabs 01/08/25 losartan 50 mg tablet 50 mg PO DAILY #90 tabs 01/15/25 atorvastatin 20 mg tablet 20 mg PO QPM #90 tabs 01/21/25 Allergies Allergy/AdvReac Type Severity Reaction Status Date / Time No Known Drug Allergies Allergy Verified 03/12/25 09:40 Review of Systems Review of Systems Narrative: GENERAL: Negative chills, fatigue, malaise, fever, sweats. HEENT: Negative sinus pain, ear pain, sore throat RESPIRATORY: Negative dyspnea, cough CARDIOVASCULAR: Negative chest pain, palpitations GASTROINTESTINAL: Negative vomiting, nausea, abdominal pain : Negative dysuria, frequency, hematuria MUSCULOSKELETAL: Negative muscle or bony pain SKIN: Negative rash, skin lesions, positive skin wound NEUROLOGIC: Negative weakness, numbness ROS Unobtainable: All systems reviewed & are unremarkable except as noted in HPI and below Patient History Medical History (Updated 03/12/25 @ 09:52 by Enoch Villavicencio MD) Primary osteoarthritis of right knee Pneumonitis Intention tremor Sleep apnea Chronic kidney disease, stage 3 (06/2020) Anticoagulation monitoring, INR range 2-3 Warfarin anticoagulation Dysphagia Seasonal allergies Nail brittleness (~10/2019) Squamous cell carcinoma (~04/2017) Sciatica (Unknown) GERD (gastroesophageal reflux disease) (Unknown) Osteopenia after menopause Hyperlipidemia Essential hypertension Atrial fibrillation (01/22/14) Surgical History 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) Hx of breast biopsy (08/2014) Family History Father No problems noted. Mother No problems noted. Social History Smoking Status: Unknown if ever smoked Tobacco: How many years used: 25 second hand exposure: No alcohol intake: current substance use type: does not use Smoking Status: Unknown if ever smoked alcohol intake frequency: 0-2 drinks per day Exam Narrative Exam Narrative: GENERAL: in no distress, not toxic not dyspneic HEAD: Normocephalic. EYES: Pupils equal round EXTREMITIES: No gross deformities. Examination right forearm. Stitches are clean dry intact. There is a medial portion of the skin injury/skin tear that is healing very well. No discharge no foul odor. No red streaking. NEURO: AOx4. Clear speech SKIN: Warm and dry PSYCH: Not anxious, is cooperative Initial Vital Signs Initial Vital Signs: Vital Signs Temperature 97.9 F 03/12/25 09:37 Pulse Rate 106 H 03/12/25 09:37 Respiratory Rate 16 03/12/25 09:37 Blood Pressure 146/101 H 03/12/25 09:37 Pulse Oximetry 100 03/12/25 09:37 Oxygen Delivery Method Room Air 03/12/25 09:37 Course Orders Ordered: Discontinued Medications Bacitracin (Bacitracin Oint 0.9 Gm Pckt) 1 applic TOP NOW ONE Stop: 03/12/25 09:52 Last Admin: 03/12/25 09:53 Dose: 1 applic Documented By: MINNIE Vital Signs Vital signs: Vital Signs - 8 hr 03/12/25 09:37 Temperature 97.9 F Pulse Rate 106 H Respiratory Rate 16 Blood Pressure 146/101 H Pulse Oximetry 100 Oxygen Delivery Method Room Air MDM - Wound/Laceration MDM Narrative Medical decision making narrative: Patient here for wound check/dressing change. Patient seen here 3 days ago for right proximal forearm skin injury stitches were placed. There is a medial aspect of the skin that was not amenable for closing and left open for healing. No fever. No discharge from the wound. Wound is clean. No foul odor. Stitches are intact. MDM After history and exam, no blood work or imaging indicated. Exam is reassuring. Patient here for wound check. Differential considered: Includes but not limited to wound check dehiscence Medical records reviewed: March 09, 2025 ER visit here. Re-evaluations: 9:54 a.m.. Reviewed with patient exam findings. Wound is reassuring. Her home care is reassuring. Return precautions reviewed. Wound care instructions reviewed. She desires discharge home Discussion: Appropriate for discharge home. Exam is reassuring. Wound was redressed. Return precautions reviewed she desires discharge home Diagnosis: Wound check Discharge Plan Departure Patient Disposition: Home Clinical Impression: Encounter for re-check of laceration wound Instructions: DI for Laceration Repair Activity Restrictions/Additional Instructions: Your skin wound is healing very well. Please do see your family doctor in 7-10 days for re-evaluation and suture removal. Please do change your dressing daily with warm soap and water and apply a thin layer of topical antibiotic. You may shower but no submersion of the arm/wound under water. Return if worse if any questions or concerns. Prescriptions: No Action (DME) DISABLED PARKING PERMIT See Rx Instructions .ROUTE .MEDSULY Qty: 1 0RF Rx Instructions: I find this patient to be medically disabled and qualified for disabled parking as indicated, and signed, on the accompanying Disabled Parking Application for Individuals. diltiazem HCl 120 mg capsule,extended release 12 hr 120 mg PO DAILY Qty: 90 3RF Eliquis 5 mg tablet 5 mg PO BID Qty: 180 3RF magnesium oxide 400 mg magnesium tablet 500 mg PO QPM propranolol 10 mg tablet 10 mg PO TID PRN (Reason: tremors,htn) losartan 50 mg tablet 50 mg PO DAILY Qty: 90 3RF atorvastatin 20 mg tablet 20 mg PO QPM Qty: 90 0RF biotin PO diphenhydramine-acetaminophen [Tylenol PM Extra Strength] 25-500 mg tablet 2 tab PO BEDTIME lcysvpxsiuud-Ik-fmuo-minerals Tablet PO Referrals: Emma Jaime MD [Primary Care Provider, Family Practice] Stand Alone Forms: Patient Portal/API
[2025-03-12] MEDS: BACITRACIN OINT 0.9 GM PCKT 1 APPLIC TOP (09:53)
== END 2025-03-12 10:01 | disposition home or self-care (01) ==
PROVIDERS: Emergency Provider Emergency Medicine; PCP Family Medicine
DX: Z48.00 Encounter for change or removal of nonsurgical wound dressing (principal)
CPT/HCPCS: 99282